=== PATIENT | male | born 1935 | race Caucasian/White ===

== ENCOUNTER 2017-04-17 15:31 | Inpatient (IN) ==
--- NOTE | 2017-04-17 16:19 | Emergency Department Note ---
Disposition Clinical Impression: Shortness of breath, Elevated troponin I level, Hyperkalemia, Hyponatremia CHF (congestive heart failure) Qualifiers: Congestive heart failure type: unspecified congestive heart failure type Congestive heart failure chronicity: acute Qualified Code(s): I50.9 - Heart failure, unspecified [id number] kidney injury Qualifiers: Acute renal failure type: unspecified Chronic kidney disease stage: unspecified stage Qualified Code(s): N17.9 - Acute kidney failure, unspecified; N18.9 - Chronic kidney disease, unspecified; N18.9 - Chronic kidney disease, unspecified Disposition: Admitted As Inpatient Condition: Fair Referrals: Shefali Orellana CNP [Primary Care Provider] - Forms: ED Satisfaction Letter SOB HPI - General Chief Complaint: ED Shortness of Breath/Dyspnea Stated Complaint: Shortness of breath Time Seen by Provider: 04/17/17 15:46 Source: patient, EMS Limitations: no limitations Nursing Notes Reviewed: Yes Vital Signs Reviewed: Yes - History of Present Illness 81-year-old male who complains of dyspnea on exertion that has worsened gradually over the past month but had a stepwise reduction in ability to ambulate without shortness of breath over the past 6 days. Patient states he had no restriction how far he is able to walk up until 6 days ago current only go in 8015 feet without having severe shortness of breath. Patient has a history of arrhythmias of SVT and A. fib. Patient is status post ablation. Patient has seen Dr. Chu in the past. The rest of his procedures and evaluation has been up at [facility]. Patient states he has noticed a 30 pound increase in body weight. His home health care has confirmed this. Patient was seen 2 days ago for bronchitis and was placed on Keflex and Mucinex for symptoms of cough and congestion. - Related Data Home Medications Medication Instructions Recorded Confirmed Amiodarone [Cordarone] 200 mg PO QAM 01/06/15 04/17/17 Metoprolol XL (24 HR) Succ [Toprol 50 mg PO QAM 01/06/15 04/17/17 Xl] Mexiletine [Mexitil] 200 mg PO Q8H 01/06/15 04/17/17 Pravastatin Sodium 10 mg PO QPM 01/06/15 04/17/17 Cholecalciferol (D-3) [Vitamin D] 2,000 unit PO DAILY 06/04/16 04/17/17 Besifloxacin HCl [Besivance] 1 drop OP TID 04/17/17 Denosumab [Prolia (For Outpatient 60 mg SQ [id number] 04/17/17 04/17/17 Infusion)] Testosterone [Androgel] 2 appl TD DAILY 04/17/17 04/17/17 Warfarin [Coumadin] 3 mg PO SUTUTHSA 04/17/17 04/17/17 Warfarin [Coumadin] 4.5 mg PO MOWEFR 04/17/17 04/17/17 Previous Rx's Medication Instructions Recorded Folic Acid 1 mg PO DAILY #30 tablet 09/10/16 Benzonatate [Tessalon] 200 mg PO TID PRN #30 capsule 04/14/17 Guaifenesin [Mucinex] 600 mg PO BID #20 tab.er.12h 04/14/17 cephALEXin [Keflex] 500 mg PO QID #40 capsule 04/14/17 Allergies Allergy/AdvReac Type Severity Reaction Status Date / Time No Known Allergies Allergy Verified 06/04/16 11:53 All systems ED: reviewed and negative except as stated. Review of Systems: As Per HPI Constitutional: Denies: fever Eyes: Denies: vision change ENT ED: Reports: congestion Cardiovascular: Denies: chest pain, palpitations Respiratory: Reports: cough, dyspnea. Denies: wheezes Gastrointestinal: Denies: abdominal pain, nausea, vomiting, diarrhea Genitourinary: Denies: urgency, dysuria, frequency, hematuria Musculoskeletal: Denies: back pain, neck pain Integumentary: Denies: rash Neurological: Denies: headache Endocrine: Reports: fatigue Past Medical History - Past Medical History Attestation: Yes The following information was validated with the patient. Source: patient, nursing notes reviewed Medical history: Reports: atrial fibrillation, cancer, CHF, coronary artery disease, hypertension, other Surgical history: Reports: appendectomy, cataract, colectomy, pacemaker/AICD, prostatectomy, other Psychiatric history: Reports: no psych history - Social History Smoking Status: Never smoker Smokeless Tobacco Status: No Alcohol use: Reports: occasionally Drug use: Reports: none Physical Exam Vital Signs Temperature 96.5 F L 04/17/17 15:33 Pulse Rate 63 04/17/17 15:33 Respiratory Rate 20 04/17/17 15:33 Blood Pressure 131/70 12/20/17 15:33 O2 Sat by Pulse Oximetry 97 04/17/17 15:33 Temperature 96.5 F L 04/17/17 15:33 Pulse Rate 61 04/17/17 17:52 Respiratory Rate 24 04/17/17 17:52 Blood Pressure 137/74 04/17/17 17:52 O2 Sat by Pulse Oximetry 96 04/17/17 17:52 Oxygen Delivery Oxygen Delivery Room Air 81-year-old male who is alert and oriented 3 and does not appear to be in any acute distress and patient is nontoxic appearing - General Limitations: no limitations General appearance: alert - Head Head exam: atraumatic, normocephalic, normal inspection - Eye Eye exam: Present: normal appearance, PERRL, EOMI - ENT ENT exam: normal exam, normal oropharynx, mucous membranes moist - Neck Neck exam: Present: normal inspection, full ROM, trachea midline - Chest Chest inspection: Present: normal inspection, symmetric chest wall rise Course - Consultations Consultation #1: Critical Christina PT/INR with a PT of 206 and an INR of 29.6. Lab redrawn Time: 18:02 Vital Signs Temperature 96.5 F L 04/17/17 15:33 Pulse Rate 63 04/17/17 15:33 Respiratory Rate 20 04/17/17 15:33 Blood Pressure 131/70 04/17/17 15:33 O2 Sat by Pulse Oximetry 97 04/17/17 15:33 Temperature 96.5 F L 04/17/17 15:33 Pulse Rate 61 04/17/17 17:52 Respiratory Rate 24 04/17/17 17:52 Blood Pressure 137/74 04/17/17 17:52 O2 Sat by Pulse Oximetry 96 04/17/17 17:52 Oxygen Delivery Oxygen Delivery Room Air Shortness of Breath/Dyspnea - MDM Narrative Medical decision making narrative: Patient presents with clinical symptoms of CHF. Patient's chest pain free and has crackles at bases lung zayas bilaterally and bilateral lower extremity edema is 2+ pitting. No leg pain or signs of inflammation lower extremities. Laboratories show a elevation of troponin 0.06, patient's BNP is 2048 which is greatly elevated from prior check. Patient has a worsening of BUN and creatinine today 51/2.73 respectively. Previously 34/2.03. Patient's currently CHF exacerbation. Patient given 40 mg Lasix. He produced 180 mL of urine and an half hour. He has been given 0.4 mg of sudden lingual nitroglycerin to help take pressure off his heart and hopefully reperfuse the kidneys. Patient being cold C monitored. Patient still has no chest pain. Pt/ INR 190/19 on recheck. Vital signs are stable. Chest x-ray shows congestive heart failure signs, patient's hyperkalemia, hyponatremia, elevated troponin most likely secondary to demand ischemia without any chest pain or ischemic signs on EKG. Patient also has acute on chronic kidney injury. Current plan is for admission and patient and family understands and accepts this is for admission. Pt was accepted for admission by Dr. Pastor the hospitalist. - Lab Data Lab results reviewed: Yes I reviewed the patient's lab results. Lab results narrative: Short CBC 04/17/17 Range/Units 16:36 WBC 7.6 (4.3-11.1) K/mcL Hgb 13.6 (12.9-16.9) g/dL Hct 43.3 (37.5-50.1) % Plt Count 178 (140-400) K/mcL Neutrophils # 6.0 (1.6-8.9) K/mcL BMP 04/17/17 Range/Units 16:36 Sodium 130 L (136-145) mEq/L Potassium 5.2 H (3.5-5.1) mEq/L Chloride 104 (98-107) mEq/L Carbon Dioxide 18 L (23-29) mEq/L BUN 51 H (8-23) mg/dL Creatinine 2.73 H (0.70-1.30) mg/dL Glucose 87 (70-105) mg/dL Calcium 8.4 L (8.6-10.3) mg/dL Cardiac Enzymes 04/17/17 Range/Units 16:36 Troponin I 0.06 H* (< 0.04) ng/mL Result diagrams: 04/17/17 16:36 04/17/17 16:36 Lab Results 04/17/17 04/17/17 04/17/17 Range/Units 16:36 16:36 16:36 WBC 7.6 (4.3-11.1) K/mcL RBC 4.46 (4.19-5.50) M/mcL Hgb 13.6 (12.9-16.9) g/dL Hct 43.3 (37.5-50.1) % MCV 97.1 (83.0-100.0) fL MCH 30.5 (28.0-33.3) pg MCHC 31.4 L (31.6-35.5) g/dL RDW 15.5 H (11.5-14.5) % Plt Count 178 (140-400) K/mcL MPV 10.8 (9.4-12.4) fL Immature Gran % 0.4 (0-4) % Seg Neutrophils % 79.3 % Lymphocytes % 7.0 % Monocytes % 12.5 % Eosinophils % 0.5 % Basophils % 0.3 % Neutrophils # 6.0 (1.6-8.9) K/mcL Lymphocytes # 0.5 L (0.6-4.6) K/mcL Monocytes # 1.0 (0.0-1.3) K/mcL Eosinophils # 0.0 (0.0-0.6) K/mcL Basophils # 0.0 (0.0-0.2) K/mcL Nucleated RBCs/100 WBC 0.4 H (0) /100 WBC PT 206.0 H* (9.4-12.1) Seconds INR > 29.6 H* Sodium 130 L (136-145) mEq/L Potassium 5.2 H (3.5-5.1) mEq/L Chloride 104 (98-107) mEq/L Carbon Dioxide 18 L (23-29) mEq/L BUN 51 H (8-23) mg/dL Creatinine 2.73 H (0.70-1.30) mg/dL Est GFR ( Amer) 27 L (> 60) Est GFR (Non-Af Amer) 23 L (> 60) BUN/Creatinine Ratio 19 (6-26) Glucose 87 (70-105) mg/dL Calculated Osmolality 283 (280-300) Lactic Acid (0.5-2.2) mmol/L Calcium 8.4 L (8.6-10.3) mg/dL Troponin I (< 0.04) ng/mL B-Natriuretic Peptide (Less than 100) pg/mL 04/17/17 04/17/17 04/17/17 Range/Units 16:36 16:36 16:36 WBC (4.3-11.1) K/mcL RBC (4.19-5.50) M/mcL Hgb (12.9-16.9) g/dL Hct (37.5-50.1) % MCV (83.0-100.0) fL MCH (28.0-33.3) pg MCHC (31.6-35.5) g/dL RDW (11.5-14.5) % Plt Count (140-400) K/mcL MPV (9.4-12.4) fL Immature Gran % (0-4) % Seg Neutrophils % % Lymphocytes % % Monocytes % % Eosinophils % % Basophils % % Neutrophils # (1.6-8.9) K/mcL Lymphocytes # (0.6-4.6) K/mcL Monocytes # (0.0-1.3) K/mcL Eosinophils # (0.0-0.6) K/mcL Basophils # (0.0-0.2) K/mcL Nucleated RBCs/100 WBC (0) /100 WBC PT (9.4-12.1) Seconds INR Sodium (136-145) mEq/L Potassium (3.5-5.1) mEq/L Chloride (98-107) mEq/L Carbon Dioxide (23-29) mEq/L BUN (8-23) mg/dL Creatinine (0.70-1.30) mg/dL Est GFR ( Amer) (> 60) Est GFR (Non-Af Amer) (> 60) BUN/Creatinine Ratio (6-26) Glucose (70-105) mg/dL Calculated Osmolality (280-300) Lactic Acid 1.5 (0.5-2.2) mmol/L Calcium (8.6-10.3) mg/dL Troponin I 0.06 H* (< 0.04) ng/mL B-Natriuretic Peptide 2048 H (Less than 100) pg/mL - Radiology Data Radiology results reviewed: Yes I reviewed the patient's radiology results. Chest X-Ray 04/17/17 16:17 IMPRESSION: Findings suggest congestive heart failure D/ / Albino Andrade MD / Albino Andrade MD Interpreting Provider: Albino Andrade MD - EKG Data EKG attestation: Yes I reviewed and interpreted this EKG. EKG results narrative: EKG taken 2016 at 1537 hrs. shows sinus rhythm at a rate of 62 beats minute. Patient has a pacer and a CD place. he has elevations or depressions in any leads, some widening of the QRS at QT/QTc of 477 and 42 ms. EMS relayed shows sinus bradycardia at 59 beats minute. Taken at 1035 hrs.
[2017-04-17] MEDS: Furosemide 40 MG/4 ML VIAL IVP ONE (16:40)
[2017-04-17 16:51] LABS: Basophils % 0.3 %; Eosinophils % 0.5 %; Hematocrit 43.3 % (37.5-50.1); Hemoglobin 13.6 g/dL (12.9-16.9); Immature Granulocytes % 0.4 % (0-4); Lymphocytes # 0.5 K/mcL (0.6-4.6); Mean Corpuscular HGB Conc 31.4 g/dL (31.6-35.5); Mean Corpuscular Hemoglobin 30.5 pg (28.0-33.3); Mean Corpuscular Volume 97.1 fL (83.0-100.0); Mean Platelet Volume 10.8 fL (9.4-12.4); Monocytes % 12.5 %; Nucleated Red Blood Cells 0.4 /100 WBC (0); Platelet Count 178 K/mcL (140-400); Red Blood Count 4.46 M/mcL (4.19-5.50); Red Cell Distribution Width 15.5 % (11.5-14.5); Segmented Neutrophils % 79.3 %
[2017-04-17 17:01] LABS: Calcium 8.4 mg/dL (8.6-10.3); Potassium 5.2 mEq/L (3.5-5.1)
[2017-04-17 17:48] LABS: INR > 29.6
[2017-04-17] MEDS ORDERED: Nitroglycerin 0.4 MG TAB.SUBL SL PRN (17:56)
[2017-04-17 18:24] LABS: Activated Partial Thrombo Time 60.9 Seconds (26.0-36.0)
[2017-04-17 18:48] LABS: INR 17.1; Prothrombin Time 195.5 Seconds (9.4-12.1)
--- NOTE | 2017-04-17 19:46 | Emergency Department Note ---
START Narrative - START START: I examined this patient and my medical decision-making was reviewed with the Resident Physician. I agree with the documented findings, disposition and treatment plan as described except to the extent set forth below. Exam (Peripheral edema, JVD, HJR), BNP and CXR c/w HF. Agree with management and disposition. INR elevated, pt w/o sx of bleeding.
[2017-04-17] MEDS ORDERED: Ondansetron ODT 4 MG TAB.RAPDIS SL PRN (21:30)
[2017-04-17] MEDS ORDERED: Naloxone 0.4 MG/ML INJ IVP PRN (21:30)
[2017-04-17] MEDS ORDERED: Acetaminophen 325 MG TABLET PO PRN (21:30)
[2017-04-17] MEDS ORDERED: *HR* Phytonadione 5 MG TABLET PO ONE (22:30)
[2017-04-18 03:40] LABS: Basophils % 0.3 %; Eosinophils # 0.1 K/mcL (0.0-0.6); Hematocrit 38.1 % (37.5-50.1); Immature Granulocytes % 0.7 % (0-4); Lymphocytes # 0.6 K/mcL (0.6-4.6); Lymphocytes % 10.7 %; Mean Corpuscular HGB Conc 31.5 g/dL (31.6-35.5); Mean Corpuscular Hemoglobin 30.1 pg (28.0-33.3); Mean Corpuscular Volume 95.5 fL (83.0-100.0); Mean Platelet Volume 10.9 fL (9.4-12.4); Monocytes # 0.9 K/mcL (0.0-1.3); Monocytes % 15.2 %; Neutrophils # 4.3 K/mcL (1.6-8.9); Nucleated Red Blood Cells 0.5 /100 WBC (0); Platelet Count 175 K/mcL (140-400); Red Blood Count 3.99 M/mcL (4.19-5.50); Segmented Neutrophils % 72.1 %
[2017-04-18 04:08] LABS: Calcium 8.1 mg/dL (8.6-10.3); Magnesium 1.9 mg/dL (1.6-2.6); Potassium 4.7 mEq/L (3.5-5.1)
--- NOTE | 2017-04-18 04:17 | Event Note ---
Date of Encounter: 04/18/17 Time of Encounter: 04:15 I examined this patient and my medical decision-making was reviewed with the Resident Physician. I agree with the documented findings, disposition and treatment plan as described except to the extent set forth below. Exam showed 1-2+ bipedal pitting edema. CXR showed Pulmonary vascular congestion. Mild interstitial edema and BNP elevated. Patient has elevated creatinine at 2.7 but near baseline (2.0-2.4). He received one dose of Lasix 40 mg IV at 16:00 in ED yesterday. - Given his renal function, will hold from giving another dose of Lasix as of this moment and should be re-evaluated. May need another dose later today, repeat BMP is pending. Follow-up echocardiogram, strict I/O, daily weights, fluid restrict. - INR dropped quickly from >26 to 17. No signs of active bleed, given 5 mg Vitamin K at 2200. Recheck INR now, continue to hold coumadin. - Sodium low at 130, will need to monitor closely as patient already volume overloaded with kidney injury.
[2017-04-18 04:18] LABS: INR 16.3; Prothrombin Time 186.8 Seconds (9.4-12.1)
--- NOTE | 2017-04-18 04:49 | Internal Med History&Physical ---
Date of Encounter: 04/18/17 Time of Encounter: 09:00 Assessment and Plan (1) Acute exacerbation of CHF (congestive heart failure) Current visit: Yes Status: Acute Hx CHF, s/p AICD insertion 2012 after cardiac arrest. 1-2+ pitting edema, no JVD, saturating well on 2L NC. In setting of CKD (2.73 creat) will not use lasix at this time. Strict I's/O's, cardiac diet, <1500mg salt restriction. Patient has modest urinary output. Echocardiogram ordered. Qualifiers: Congestive heart failure type: unspecified congestive heart failure type Qualified Code(s): I50.9 - Heart failure, unspecified (2) Supratherapeutic INR Current visit: Yes Status: Acute PT 195.5 1800; INR 17.1 Holding coumadin (pt states he takes 3.0, 4.5 alternating, compliant, last coumadin clinic 9 days ago) Giving 5mg VitK. AM INR. Fall/bleed precautions. Currently no evidence of bleed, will not give FFP at this time. Continue trending PT/INR. (3) Chronic kidney disease Current visit: No Status: Acute Baseline 1.8-2.0; currently 2.73 creatinine. Is currently on strict diet/fluids due to CHF exacerbation, will monitor labs/ urine output. Qualifiers: Chronic kidney disease stage: unspecified stage Qualified Code(s): N18.9 - Chronic kidney disease, unspecified (4) Chronic a-fib Current visit: No Status: Chronic Currently rate+rhythm controlled on Amiodarone, Mexitil, Toprol. Has been on Amio for over 2 years. Follows physician's aide [id number] at [facility]. (5) Elevated troponin I level Current visit: Yes Status: Acute Relatively a-dynamic troponin .06 to .08 without chest discomfort, no ischemic changes on ECG, and in setting of CKD. Echocardiogram pending as per CHF exacerbation workup. Internal Medicine - H&P: HPI Admitted From: Emergency Dept Plans for Post Hospital Care: Home History of present illness: Esau Auguste, 81M, PMH CHF, cardiac arrest with AICD since 2012, afib on amiodarone, HTN, presents to ED for SOB x6d, worsened by exertion/walking short distances. ED CXR shows evidence of pulmonary vascular congestion. No ischemic changes on ECG. Troponin was elevated at .06. Pt reports increased weight gain in past few weeks. Denies fever, n/v, diarrhea , chest discomfort at rest or with exertion. States he has been taking his medications. He reports aside from the SOB while walking he had a recent fall this Saturday from crouching position while in the front yard taking out garbage. He denies contusions or loss of consciousness. EMS was called by patient because he could not get up independently. He was not taken to the emergency room at the time. Pt currently takes Coumadin initiated 8 weeks ago. Denies bruising/bleeding (stool, gums, bruising). Past Med Surg Social Fam HX - Past Medical History Medical history: atrial fibrillation, cancer, CHF, coronary artery disease, hyperlipidemia, hypertension, other Psychiatric history: no psych history - Past Surgical History Surgical History: appendectomy, cataract, colectomy, pacemaker/AICD, prostatectomy, other - Social History Smoking Status: Former smoker Smokeless Tobacco Status: No Alcohol use: occasionally Drug use: none - Family History Mother Adopted: No Family Member Ethnicity: Non- Living Status: Hx Family Cardiac Disorders: Yes Hx Family GI Disorders: Yes (CRC resectable) Brother Hx Family Cancer: Yes (esophageal cancer, other brother had liver cancer) Father Adopted: [place]: [email or web address] Family Member Ethnicity: Non- Living Status: Age at : 80 Cause of : heart attack Hx Family Cardiac Disorders: Yes Internal Medicine - H&P: Meds Amiodarone [Cordarone] 200 mg PO QAM 01/06/15 [History] Metoprolol XL (24 HR) Succ [Toprol Xl] 50 mg PO QAM 01/06/15 [History] Mexiletine [Mexitil] 200 mg PO Q8H 01/06/15 [History] Pravastatin Sodium 10 mg PO QPM 01/06/15 [History] Cholecalciferol (D-3) [Vitamin D] 2,000 unit PO DAILY 06/04/16 [History] Folic Acid 1 mg PO DAILY #30 tablet 09/10/16 [Rx] Benzonatate [Tessalon] 200 mg PO TID PRN #30 capsule 04/14/17 [Rx] Guaifenesin [Mucinex] 600 mg PO BID #20 tab.er.12h 04/14/17 [Rx] cephALEXin [Keflex] 500 mg PO QID #40 capsule 04/14/17 [Rx] Besifloxacin HCl [Besivance] 1 drop OP TID 04/17/17 [History] Denosumab [Prolia (For Outpatient Infusion)] 60 mg SQ [id number] 04/17/17 [History ] Testosterone [Androgel] 2 appl TD DAILY 04/17/17 [History] Warfarin [Coumadin] 3 mg PO SUTUTHSA 04/17/17 [History] Warfarin [Coumadin] 4.5 mg PO MOWEFR 04/17/17 [History] 3 Allergy/AdvReac Type Severity Reaction Status Date / Time No Known Allergies Allergy Verified 06/04/16 11:53 All Systems PM: A 10-system review of systems was performed and is negative for pertinent findings except as documented above in the HPI. - Constitutional Vitals: Temp Pulse Resp BP Pulse Ox 98.2 F 63 22 124/67 97 04/18/17 04:10 04/18/17 04:10 04/18/17 04:10 04/18/17 04:10 04/18/17 04:10 General appearance: Present: A&O X 3, no acute distress - Head Head exam: Present: atraumatic - Respiratory Respiratory exam: Present: CTAB. Absent: accessory muscle use, chest wall tenderness, tachypnea - Cardiovascular Cardiovascular exam: Present: +S1, +S2. Absent: irregular rhythm, JVD Additional comments: mid 60s pulse, regular - GI/Abdominal GI/Abdominal exam: Present: no peritoneal signs - Extremities Exam Additional comments: 1-2+ pitting edema - Skin Skin exam: Absent: excoriation, petechiae Additional comments: no evidence of bleed Internal Med - H&P Results - Labs CBC & Chem 7: 04/18/17 03:02 04/18/17 03:02 Labs: Short CBC 04/18/17 Range/Units 03:02 WBC 6.0 (4.3-11.1) K/mcL Hgb 12.0 L D (12.9-16.9) g/dL Hct 38.1 (37.5-50.1) % Plt Count 175 (140-400) K/mcL Neutrophils # 4.3 (1.6-8.9) K/mcL BMP 04/18/17 03:02 Sodium 138 Potassium 4.7 Chloride 108 H Carbon Dioxide 19 L BUN 49 H Creatinine 2.69 H Glucose 85 Calcium 8.1 L Cardiac Enzymes 04/17/17 Range/Units 21:57 Troponin I 0.08 H* (< 0.04) ng/mL
[2017-04-18 05:18] LABS: Prothrombin Time 180.8 Seconds (9.4-12.1)
[2017-04-18 05:19] LABS: INR 15.8
[2017-04-18] MEDS: Folic Acid 1 MG TABLET PO SCH (09:02)
[2017-04-18] MEDS: *HR* Amiodarone 200 MG TABLET PO SCH (09:02)
[2017-04-18] MEDS: Cholecalciferol (D-3) 1,000 UNIT TABLET PO SCH (09:02)
[2017-04-18] MEDS: Metoprolol XL (24 HR) Succ 50 MG TAB.ER.24H PO SCH (09:02)
[2017-04-18] MEDS ORDERED: *HR* Phytonadione 5 MG TABLET PO ONE (14:13)
[2017-04-18] MEDS: Loratadine 10 MG TABLET PO SCH (16:05)
[2017-04-18] MEDS: Furosemide 40 MG/4 ML VIAL IVP SCH (16:05)
[2017-04-18] MEDS: Furosemide 40 MG/4 ML VIAL IVP ONE (16:05)
--- NOTE | 2017-04-18 16:37 | Electrocardiograph Report ---
[place] [id number] Test Date: 2017-04-17 Pat Name: Esau Auguste Department: 104 Room: [id number] Gender: M Feather [employer]her: : 1935 Requested By: Oc Zaragoza Order Number: [id number] Reading MD: Denton Menendez MD Measurements Intervals [place] Rate: 62 P: 17 AK: 172 QRS: -30 QRSD: 157 T: 0 QT: 477 QTc: 482 Interpretive Statements SINUS RHYTHM INTRAVENTRICULAR CONDUCTION DELAY Poor R wave progression Electronically Signed On 04-18-2017 16:35:53 EST by Denton Menendez MD
--- NOTE | 2017-04-18 17:41 | Event Note ---
Date of Encounter: 04/18/17 Time of Encounter: 11:00 -Patient will history of ischemic cardiomyopathy with recent dyspnea on exertion and weight gain for the past 2 months. -Will continue IV diuresis for acute on chronic heart failure. -Cardiology consulted and appreciate recommendations
[2017-04-19 04:13] LABS: INR 4.1
[2017-04-19 04:15] LABS: Prothrombin Time 45.7 Seconds (9.4-12.1)
[2017-04-19] MEDS: Folic Acid 1 MG TABLET PO SCH (08:21)
[2017-04-19] MEDS: Loratadine 10 MG TABLET PO SCH (08:21)
[2017-04-19] MEDS: Furosemide 40 MG/4 ML VIAL IVP SCH (08:21)
[2017-04-19] MEDS: Metoprolol XL (24 HR) Succ 50 MG TAB.ER.24H PO SCH (08:21)
[2017-04-19] MEDS: *HR* Amiodarone 200 MG TABLET PO SCH (08:21)
[2017-04-19] MEDS: Cholecalciferol (D-3) 1,000 UNIT TABLET PO SCH (08:21)
[2017-04-19 08:58] LABS: Basophils % 0.3 %; Eosinophils # 0.1 K/mcL (0.0-0.6); Eosinophils % 1.1 %; Hematocrit 38.3 % (37.5-50.1); Immature Granulocytes % 1.2 % (0-4); Immature Platelets 3.7 % (1.1-6.1); Lymphocytes # 0.7 K/mcL (0.6-4.6); Lymphocytes % 9.9 %; Mean Corpuscular HGB Conc 31.3 g/dL (31.6-35.5); Mean Corpuscular Volume 95.8 fL (83.0-100.0); Mean Platelet Volume 10.5 fL (9.4-12.4); Monocytes # 1.1 K/mcL (0.0-1.3); Monocytes % 14.3 %; Neutrophils # 5.4 K/mcL (1.6-8.9); Nucleated Red Blood Cells 0.4 /100 WBC (0); Platelet Count 170 K/mcL (140-400); Red Cell Distribution Width 15.2 % (11.5-14.5); Segmented Neutrophils % 73.2 %
[2017-04-19 09:14] LABS: Calcium 8.2 mg/dL (8.6-10.3); Potassium 4.5 mEq/L (3.5-5.1)
--- NOTE | 2017-04-19 10:01 | Cardiology Consult Note ---
<Kamryn Adamson - Last Filed: 04/19/17 10:05> Date of Encounter: 04/19/17 Time of Encounter: 09:00 Assessment and Plan (1) Non-ischemic cardiomyopathy Current Visit: Yes Status: Acute Suspect acute on chronic CHF exacerbation. BNP 2048 upon admission, now 2673. Prior BNP 350. CXR shows pulmonary vascular congestion, mild interstitial edema. Patient reports 25 lb weight gain and worsening shortness of breath over the past 2 months. Most recent TTE February 2015 demonstrated EF 45-50% with mild LVDD. EF previously 35% January 2013. Echo ordered and pending. Continue diuresis--appreciate Nephrology recommendations. Continue Toprol XL. No ACEi/ARB due to CKD. Strict I&O's, daily weights, and Na/fluid restriction diet. (2) PAF (paroxysmal atrial fibrillation) Current Visit: Yes Status: Acute Hx of PAF on Coumadin. Had been on Xarelto in the past, transition to Coumadin this past summer due to worsening CKD. SR upon exam. Avg HR=61 SR, paced at times. Follows with [facility]. Patient reports compliance with medications and diet. INR supratherpeutic upon admission, >29.6. Now 4.1. Goal 2-3. (3) Elevated troponin I level Current Visit: Yes Status: Acute Mild, adynamic troponin elevation in the setting of CKD and acute on chronic CHF. This likely is secondary to demand ischemia. Patient denies chest pain, no acute ischemic ECG changes noted. 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 Continue current CV medications. (4) Renal insufficiency Current Visit: Yes Status: Acute Follows with Dr. Appiah in the outpatient setting. Baseline SCr 1.8-2.4; mild increase from baseline upon presentation. Consulted [facility] for diuresis recommendations. (5) AICD (automatic cardioverter/defibrillator) present Current Visit: Yes Status: Chronic AICD implant in 2012 for secondary prevention due to VT. Hx of VT ablation at [facility], follows with ESTEBAN Suggs at [facility]. Continue amiodarone and mexiletine. Discussion w patient/family: The assessment and plan as outlined above was discussed with the patient and/or family members who expressed understanding and agreement. All questions were answered. Thank you for involving us in the care of your patient. Please call with any questions. The patient will be discussed and reviewed with Dr. Dumont; changes to be made accordingly. History of Present Illness Consult date: 04/19/17 Requesting physician: Madhu Dickens Consult reason: Elevated troponin, CHF Chief complaint: Shortness of breath, weight gain History of present illness: Mr. Auguste is a 81 year old male with PMHx significant for nonischemic cardiomyopathy, VT s/p ICD and ablation ([facility]), CKD, and PAF (coumadin) who presented to the ED with 1 week history of worsening weakness, fatigue, and shortness of breath. He also reports 25 lb weight gain over the past 2 months. Associated symptoms include cough, subjective fevers, and chills. INR was supratherapeutic upon admission, INR >29.6, now stable. Cardiology consulted for mild troponin elevation and hx of CHF. Patient also follows with [facility] EP, Dr. De La Cruz. Prior CV testing ([facility]): TTE 03/25/15: EF 45-50%, mild LVDD TTE 09/22/13: EF 55-60% 12/09/12: ICD implant for secondary prevention LHC 12/07/12: mild-moderate non-obstructive CAD, EF 35% Past Med Surg Social Fam HX - Past Medical History Attestation: Yes The following information was validated with the patient. Source: patient Medical history: atrial fibrillation, cancer, CHF, coronary artery disease, hyperlipidemia, hypertension, renal disease, other (VT) Psychiatric history: no psych history - Past Surgical History Surgical History: appendectomy, cataract, colectomy, prostatectomy, other (VT ablation ([facility])), AICD - Social History Smoking Status: Former smoker Smokeless Tobacco Status: No Alcohol use: occasionally Drug use: none - Family History Mother Adopted: No Family Member Ethnicity: Non- Living Status: Hx Family Cardiac Disorders: Yes Hx Family GI Disorders: Yes (CRC resectable) Brother Hx Family Cancer: Yes (esophageal cancer, other brother had liver cancer) Father Adopted: [place]: mike Family Member Ethnicity: Non- Living Status: Age at : 80 Cause of : heart attack Hx Family Cardiac Disorders: Yes Medications and Allergies Amiodarone [Cordarone] 200 mg PO QAM 01/06/15 [History] Metoprolol XL (24 HR) Succ [Toprol Xl] 50 mg PO QAM 01/06/15 [History] Mexiletine [Mexitil] 200 mg PO Q8H 01/06/15 [History] Pravastatin Sodium 10 mg PO QPM 01/06/15 [History] Cholecalciferol (D-3) [Vitamin D] 2,000 unit PO DAILY 06/04/16 [History] Folic Acid 1 mg PO DAILY #30 tablet 09/10/16 [Rx] Benzonatate [Tessalon] 200 mg PO TID PRN #30 capsule 04/14/17 [Rx] Guaifenesin [Mucinex] 600 mg PO BID #20 tab.er.12h 04/14/17 [Rx] cephALEXin [Keflex] 500 mg PO QID #40 capsule 04/14/17 [Rx] Besifloxacin HCl [Besivance] 1 drop OP TID 04/17/17 [History] Denosumab [Prolia (For Outpatient Infusion)] 60 mg SQ [id number] 04/17/17 [History ] Testosterone [Androgel] 2 appl TD DAILY 04/17/17 [History] Warfarin [Coumadin] 3 mg PO SUTUTHSA 04/17/17 [History] Warfarin [Coumadin] 4.5 mg PO MOWEFR 04/17/17 [History] 3 Allergy/AdvReac Type Severity Reaction Status Date / Time No Known Allergies Allergy Verified 06/04/16 11:53 All Systems Review: A 10-system review of systems was performed and is negative for pertinent findings except as documented above in the HPI. - Cardiovascular Cardiovascular: as per HPI Physical Examination General: Conversant, No Apparent Distress HEENT: Atraumatic, Normocephaly Cardiac: Reg Rate and Rhythm, Normal S1 and S2 Lungs: Other (Crackles throughout) Neuro: Alert and responsive Abdomen: Soft, Non-Tender Skin: No rashes noted on visualized skin Musculoskeletal: No Chest Wall Tenderness Extremities: Normal Pulses, Other (+2 BLE to knees) Results 04/19/17 08:36 04/19/17 08:36 Lab Results 04/19/17 04/19/17 08:36 08:36 WBC 7.4 Hgb 12.0 L Hct 38.3 Plt Count 170 Sodium 137 Potassium 4.5 Chloride 107 Carbon Dioxide 24 BUN 44 H Creatinine 2.32 H Glucose 96 Calcium 8.2 L Active Medications Acetaminophen (Tylenol) 650 mg PO Q6HR PRN PRN Reason: Mild Pain (1-3) Stop: 10/17/17 21:31 Amiodarone HCl (Cordarone) 200 mg PO QAM [facility] Stop: 10/18/17 09:01 Last Admin: 04/19/17 08:21 Dose: 200 mg Folic Acid (Folic Acid) 1 mg PO DAILY [facility] Stop: 10/18/17 09:01 Last Admin: 04/19/17 08:21 Dose: 1 mg Furosemide (Lasix) 40 mg IVP DAILY [facility] Stop: 10/18/17 14:16 Last Admin: 04/19/17 08:21 Dose: 40 mg Guaifenesin (Mucinex) 600 mg PO BID [facility] Stop: 10/18/17 09:01 Last Admin: 04/19/17 08:21 Dose: 600 mg Loratadine (Claritin) 10 mg PO DAILY [facility] PRN Reason: Protocol Stop: 10/18/17 15:01 Last Admin: 04/19/17 08:21 Dose: 10 mg Metoprolol Succinate ([facility]rol Xl) [facility] [place] Stop: 10/18/17 09:01 Last Admin: 04/19/17 08:21 Dose: 50 mg Mexiletine HCl (Mexitil) 200 mg PO Q8H [facility] Stop: 10/17/17 21:46 Last Admin: 04/19/17 05:46 Dose: 200 mg Naloxone HCl (Narcan) 0.4 mg IVP Q2MIN PRN PRN Reason: Opioid Reversal Stop: 10/17/17 21:31 Nitroglycerin (Nitroglycerin) 0.4 mg SL Q5MIN PRN PRN Reason: Chest Pain Stop: 10/17/17 17:57 Last Admin: 04/17/17 18:22 Dose: 0.4 mg Ondansetron HCl (Zofran Odt) 4 mg SL Q8HR PRN PRN Reason: Nausea And Vomiting Stop: 10/17/17 21:31 Simvastatin (Zocor) 10 mg PO QPM [facility] Stop: 10/18/17 18:01 Last Admin: 04/18/17 17:38 Dose: 10 mg Vitamin D (Vitamin D) 1,000 unit PO DAILY [facility] Stop: 10/18/17 09:01 Last Admin: 04/19/17 08:21 Dose: 1,000 unit - Imaging and Cardiology Echo: pending, report reviewed Cardiac cath: report reviewed Other Results: 12 hour tele: avg HR=61 SR, paced at times. - EKG Interpretation EKG results cardiology: personally reviewed Consult Discharge Plan - Plan Referrals: Shefali Orellana CNP [Primary Care Provider] - 04/23/17 1:30 pm <Katina Dumont - Last Filed: 04/19/17 17:07> Date of Encounter: 04/19/17 - Attending Attestation I examined this patient and my medical decision-making was reviewed with the NURSING CARE ATTENDANT. I agree with the documented findings, disposition and treatment plan as described. Mr. Auguste presents with acute systolic heart failure. He has known history of NICM and history of VT s/p ablation at [facility] and ICD placement as well as CKD and PAF on coumadin. Patient follows with Dr. De La Cruz at [facility] and is on mexilitene and amiodarone. Echo performed this hospital stay demonstrates EF 45-50%, improved from January 2013 when it was 35%. Recommend continuing diuresis, strict I/O's, daily weights and NA/fluid restriction. Troponin elevation is mild and adynamic not indicative of ACS. Will defer to primary team for coumadin management of supratherapeutic INR used for AFIB. Patient Hgb is stable and no signs of bleeding. We will sign off. Please call with questions. Recommend outpatient follow up with primary machine setter and repairer. Assessment and Plan Discussion w patient/family: The assessment and plan as outlined above was discussed with the patient and/or family members who expressed understanding and agreement. All questions were answered. Thank you for involving us in the care of your patient. Please call with any questions. History of Present Illness History of present illness: Mr. Auguste is a 81 year old male All Systems Review: A 10-system review of systems was performed and is negative for pertinent findings except as documented above in the HPI. Physical Examination Vital Signs, Last 4 Hours Temp Pulse Resp BP Pulse Ox 04/19/17 15:00 98.5 F 64 17 125/67 97 Results 04/19/17 08:36 04/19/17 08:36 Lab Results 04/19/17 04/19/17 08:36 08:36 WBC 7.4 Hgb 12.0 L Hct 38.3 Plt Count 170 Sodium 137 Potassium 4.5 Chloride 107 Carbon Dioxide 24 BUN 44 H Creatinine 2.32 H Glucose 96 Calcium 8.2 L
--- NOTE | 2017-04-19 14:55 | Nephrology Consult Note ---
Date of Encounter: 04/19/17 Time of Encounter: 15:01 Assessment and Plan (1) Chronic kidney disease Current Visit: No Status: Acute CKD stage IV. patient had slightly worsening of his creatinine on admission, likely related to fluid overload in the setting of acute exacerbation of systolic heart failure.agree with IV diuresis which appears to have improved his renal function. Patient is having good urine output. Patient still has rales on exam with lower extremity edema so would continue IV diuresis for now. Continue to follow nephro protective strategy including avoiding nephrotoxins and dosing medications by GFR. Agree with holding BOB inhibitor and arms due to worsening renal function and hyperkalemia. Patient apparently has not been taking Lasix at home due to concerns about kidney injury. Would recommend patient continue Lasix at home with a dose of 40 mg every other day and a BMP 1 week after discharge. His potassium was 5.2 on presentation and has improved to 4.5. Qualifiers: Chronic kidney disease stage: stage 4 (severe) Qualified Code(s): N18.4 - Chronic kidney disease, stage 4 (severe) (2) Anemia Current Visit: No Status: Chronic Hemoglobin 12, and active goal for anemia of chronic kidney disease. No evidence of active bleeding. Qualifiers: Anemia type: unspecified type Qualified Code(s): D64.9 - Anemia, unspecified (3) Acute exacerbation of CHF (congestive heart failure) Current Visit: Yes Status: Acute Further management per primary/cardio Qualifiers: Congestive heart failure type: unspecified congestive heart failure type Qualified Code(s): I50.9 - Heart failure, unspecified (4) PAF (paroxysmal atrial fibrillation) Current Visit: Yes Status: Acute Further management per primary and cardiology History of Present Illness - Reason for Consult Consult date: 04/19/17 Acute Kidney Injury, Chronic Kidney Disease Requesting physician: Kamryn Adamson - Chief Complaint Shortness of breath - History of Present Illness Patient is an 81-year-old male with history of atrial fibrillation, CKD stage IV who presents with worsening shortness of breath. Patient states that he was having shortness of breath for several days at home with increased lower extremity swelling. He thought that he had a cold so he went to urgent care where they treated him with antibiotics. He states these did not help and he continued to worsen until he saw his PCP who recommended he go to the emergency department for evaluation. At the time I examined the patient states that he feels better. He feels like his breathing is improved. He states he has lower extremity edema but it feels to be about his baseline. He denies decreased appetite, nausea, vomiting, confusion. Past Med Surg Social Fam HX - Past Medical History Medical history: atrial fibrillation, cancer, CHF, coronary artery disease, hyperlipidemia, hypertension, renal disease, other (VT) Psychiatric history: no psych history - Past Surgical History Surgical History: appendectomy, cataract, colectomy, prostatectomy, other (VT ablation ([facility])), AICD - Social History Smoking Status: Former smoker Smokeless Tobacco Status: No Alcohol use: occasionally Drug use: none - Family History Mother Adopted: No Family Member Ethnicity: Non- Living Status: Hx Family Cardiac Disorders: Yes Hx Family GI Disorders: Yes (CRC resectable) Brother Hx Family Cancer: Yes (esophageal cancer, other brother had liver cancer) Father Adopted: [place]: mike Family Member Ethnicity: Non- Living Status: Age at : 80 Cause of : heart attack Hx Family Cardiac Disorders: Yes Medications and Allergies Amiodarone [Cordarone] 200 mg PO QAM 01/06/15 [History] Metoprolol XL (24 HR) Succ [Toprol Xl] 50 mg PO QAM 01/06/15 [History] Mexiletine [Mexitil] 200 mg PO Q8H 01/06/15 [History] Pravastatin Sodium 10 mg PO QPM 01/06/15 [History] Cholecalciferol (D-3) [Vitamin D] 2,000 unit PO DAILY 06/04/16 [History] Folic Acid 1 mg PO DAILY #30 tablet 09/10/16 [Rx] Benzonatate [Tessalon] 200 mg PO TID PRN #30 capsule 04/14/17 [Rx] Guaifenesin [Mucinex] 600 mg PO BID #20 tab.er.12h 04/14/17 [Rx] cephALEXin [Keflex] 500 mg PO QID #40 capsule 04/14/17 [Rx] Besifloxacin HCl [Besivance] 1 drop OP TID 04/17/17 [History] Denosumab [Prolia (For Outpatient Infusion)] 60 mg SQ [id number] 04/17/17 [History ] Testosterone [Androgel] 2 appl TD DAILY 04/17/17 [History] Warfarin [Coumadin] 3 mg PO SUTUTHSA 04/17/17 [History] Warfarin [Coumadin] 4.5 mg PO MOWEFR 04/17/17 [History] 3 Allergy/AdvReac Type Severity Reaction Status Date / Time No Known Allergies Allergy Verified 06/04/16 11:53 Review of Systems All Systems: reviewed and no additional remarkable complaints except as stated Exam - Vital Signs Vital signs: Initial Vital Signs Temp Pulse Resp BP Pulse Ox 96.5 F L 63 20 131/70 97 04/17/17 15:33 04/17/17 15:33 04/17/17 15:33 04/17/17 15:33 04/17/17 15:33 Intake and Output 04/18/17 04/19/17 04/19/17 23:59 07:59 15:59 Intake Total 240 / 240 Output Total 300 / 300 Balance -60 / -60 Intake: Oral 240 / 240 Output: Urine 300 / 300 Other: Meal Breakfast Percent of Meal Consumed 100% - General Appearance General appearance: well-developed, well-nourished, appears started age EENT: ATNC, PERRL, mucous membranes moist Neck: supple Respiratory: rales (Mild, bibasilar) Cardiology: no murmurs, edema (1+ lower extremities bilaterally), regular rate, irregular rhythm Gastrointestinal: normoactive bowel sounds, no tenderness, no guarding Integumentary: no rash, warm and dry Neurologic: no focal deficit, alert and oriented x3 Musculoskeletal: no erythema, no cyanosis Results - Lab Results 04/19/17 08:36 04/19/17 08:36 Most recent lab results Calcium 8.2 mg/dL (8.6-10.3) L 04/19/17 08:36 Phosphorus 3.0 mg/dL (2.7-4.5) 04/18/17 03:02 Magnesium 1.9 mg/dL (1.6-2.6) 04/18/17 03:02 Consult Discharge Plan - Plan Referrals: Shefali Orellana CNP [Primary Care Provider] - 04/23/17 1:30 pm
--- NOTE | 2017-04-19 17:33 | Internal Med Progress Note ---
Date of Encounter: 04/19/17 Time of Encounter: 11:00 - Assessment and plan (1) Acute exacerbation of CHF (congestive heart failure) Current Visit: Yes Status: Acute Assessment and plan: -Patient with acute on chronic diastolic heart failure. -Continue IV diuresis -Cardiology following and appreciate recommendations Qualifiers: Congestive heart failure type: unspecified congestive heart failure type Qualified Code(s): I50.9 - Heart failure, unspecified (2) Supratherapeutic INR Current Visit: Yes Status: Acute Assessment and plan: -INR now 4.1 from 17.1 after 10 mg of vitamin K given -Continue to monitor; pharmacy to does (3) Hsydw-mf-[id number] kidney injury Current Visit: Yes Status: Acute Assessment and plan: -Patient with acute on chronic kidney disease stage IV -Nephrology consulted and appreciate recommendations Qualifiers: Acute renal failure type: unspecified Chronic kidney disease stage: unspecified stage Qualified Code(s): N17.9 - Acute kidney failure, unspecified ; N18.9 - Chronic kidney disease, unspecified; N18.9 - Chronic kidney disease, unspecified (4) PAF (paroxysmal atrial fibrillation) Current Visit: Yes Status: Acute Assessment and plan: -Rate controlled but currently supratherapeutic; management as above (5) HLD (hyperlipidemia) Current Visit: No Status: Acute Assessment and plan: -Continue statin Qualifiers: Hyperlipidemia type: unspecified Qualified Code(s): E78.5 - Hyperlipidemia , unspecified (6) DVT prophylaxis Current Visit: No Status: Acute Assessment and plan: -Supratherapeutic as above - Subjective Interval history: Patient reports improvement in his symptoms with IV diuresis overnight Super therapeutic INR is improving as well with administration of vitamin K Patient with acute on chronic kidney disease stage IV - Constitutional Vitals: Temp Pulse Resp BP Pulse Ox 98.5 F 64 17 125/67 97 04/19/17 15:00 04/19/17 15:00 04/19/17 15:00 04/19/17 15:00 04/19/17 15:00 General appearance: Present: A&O X 3, no acute distress - Respiratory Respiratory exam: Present: CTAB. Absent: accessory muscle use, rales, rhonchi, wheezes - Cardiovascular Cardiovascular exam: Present: RRR, +S1, +S2. Absent: diastolic murmur, gallop, rubs, systolic murmur Internal Medicine: Result - Labs CBC & Chem 7: 04/19/17 08:36 04/19/17 08:36 Labs: Short CBC 04/19/17 Range/Units 08:36 WBC 7.4 (4.3-11.1) K/mcL Hgb 12.0 L (12.9-16.9) g/dL Hct 38.3 (37.5-50.1) % Plt Count 170 (140-400) K/mcL Neutrophils # 5.4 (1.6-8.9) K/mcL BMP 04/19/17 08:36 Sodium 137 Potassium 4.5 Chloride 107 Carbon Dioxide 24 BUN 44 H Creatinine 2.32 H Glucose 96 Calcium 8.2 L - ABG Interpretation ABG results: PT/INR, D-dimer PT 45.7 Seconds (9.4-12.1) H* D 04/19/17 03:26 - VTE Documentation of Mechanical Device: Intermittent pneumatic compression device Consult Discharge Plan - Plan Referrals: Shefali Orellana CNP [Primary Care Provider] - 04/23/17 1:30 pm
[2017-04-19] MEDS ORDERED: Warfarin perPT PO PRN (18:00)
[2017-04-20 04:16] LABS: INR 1.8; Prothrombin Time 19.6 Seconds (9.4-12.1)
[2017-04-20] MEDS: Furosemide 40 MG/4 ML VIAL IVP SCH (08:46)
[2017-04-20] MEDS: *HR* Amiodarone 200 MG TABLET PO SCH (08:47)
[2017-04-20] MEDS: Loratadine 10 MG TABLET PO SCH (08:47)
[2017-04-20] MEDS: Cholecalciferol (D-3) 1,000 UNIT TABLET PO SCH (08:47)
[2017-04-20] MEDS: Metoprolol XL (24 HR) Succ 50 MG TAB.ER.24H PO SCH (08:47)
[2017-04-20] MEDS: Folic Acid 1 MG TABLET PO SCH (08:47)
--- NOTE | 2017-04-20 15:08 | Discharge Summary ---
Date of Encounter: 04/20/17 Time of Encounter: 11:00 - Discharge Diagnosis (1) Acute exacerbation of CHF (congestive heart failure) Priority: Primary Status: Acute Qualifiers: Congestive heart failure type: unspecified congestive heart failure type Qualified Code(s): I50.9 - Heart failure, unspecified (2) Supratherapeutic INR Priority: Primary Status: Acute (3) [id number] kidney injury Priority: Secondary Status: Acute Qualifiers: Acute renal failure type: unspecified Chronic kidney disease stage: unspecified stage Qualified Code(s): N17.9 - Acute kidney failure, unspecified ; N18.9 - Chronic kidney disease, unspecified; N18.9 - Chronic kidney disease, unspecified (4) PAF (paroxysmal atrial fibrillation) Priority: Secondary Status: Acute (5) HLD (hyperlipidemia) Priority: Secondary Status: Acute Qualifiers: Hyperlipidemia type: unspecified Qualified Code(s): E78.5 - Hyperlipidemia , unspecified - Discharge Medications Prescriptions: Furosemide [Lasix] 20 mg PO DAILY #30 tablet Home Medications: Amiodarone [Cordarone] 200 mg PO QAM 01/06/15 [History] Metoprolol XL (24 HR) Succ [Toprol Xl] 50 mg PO QAM 01/06/15 [History] Mexiletine [Mexitil] 200 mg PO Q8H 01/06/15 [History] Pravastatin Sodium 10 mg PO QPM 01/06/15 [History] Cholecalciferol (D-3) [Vitamin D] 2,000 unit PO DAILY 06/04/16 [History] Folic Acid 1 mg PO DAILY #30 tablet 09/10/16 [Rx] Benzonatate [Tessalon] 200 mg PO TID PRN #30 capsule 04/14/17 [Rx] Guaifenesin [Mucinex] 600 mg PO BID #20 tab.er.12h 04/14/17 [Rx] cephALEXin [Keflex] 500 mg PO QID #40 capsule 04/14/17 [Rx] Besifloxacin HCl [Besivance] 1 drop OP TID 04/17/17 [History] Denosumab [Prolia (For Outpatient Infusion)] 60 mg SQ [id number] 04/17/17 [History ] Testosterone [Androgel] 2 appl TD DAILY 04/17/17 [History] Warfarin [Coumadin] 3 mg PO SUTUTHSA 04/17/17 [History] Warfarin [Coumadin] 4.5 mg PO MOWEFR 04/17/17 [History] Furosemide [Lasix] 20 mg PO DAILY #30 tablet 04/20/17 [Rx] Allergies/Adverse Reactions: 3 Allergy/AdvReac Type Severity Reaction Status Date / Time No Known Allergies Allergy Verified 06/04/16 11:53 Date of admission: 04/19/17 08:27 Primary care physician: Shefali Orellana CNP Consults: 04/19/17 09:54 Consult to Nephrology [CONS] Routine Consulting Provider: Kidney Kalyani/DULCE MARIA/BERHANE/EN Reason for Consult: CKD, diuresis recommendations Time Notified: 09:30 Call Completed: Yes - Patient Status Disposition: Home Health Service Condition: Fair - Discharge Instructions Instructions: Heart Failure (DC), Atrial Fibrillation (DC), Pacemaker (DC), Acute Kidney Injury (DC), Acute Kidney Injury (GEN), Anemia (GEN), Acute Kidney Injury, Geriatric Care Manager (GEN) Follow Up With: Manjit Appiah DO [Partnered Physician] - (call next week to make an appointment) Shefali Orellana CNP [Primary Care Provider] - 04/23/17 1:30 pm Hospital course: Patient is an 81-year-old male with past medical history significant for CHF, cardiac arrest with AICD since 2012, atrial fibrillation on amiodarone and HTN who presented to the ER on 04/19/17 due to dyspnea with exertion and shortness of breath. Patient reported of an increased of weight gain for the last several weeks in addition to gradually worsening dyspnea with exertion and shortness of breath. He also reports of discontinuing Lasix due to the advice of nephrology due to decreasing renal function. Patient came to the ER for further evaluation and was found to have acute on chronic heart failure in addition to supratherapeutic INR. Patient was admitted to the medical surgical floor for further evaluation and management. During patients hospital stay, his symptoms of shortness of breath resolved after treatment with IV diuresis. In addition, patients INR was reversed with vitamin K and was 1.8 on discharge from 17.1 on admission. Patient will be discharged to take Lasix 20 mg daily and to resume his Coumadin regimen and to follow-up with Coumadin clinic, cardiology and nephrology in 1 week. - Time Spent with Patient Total time spent providing and/or coordinating discharge services: Less than 30 minutes - Constitutional Vitals: Temp Pulse Resp BP Pulse Ox 97.7 F 60 16 137/81 98 04/20/17 12:00 04/20/17 12:00 04/20/17 12:00 04/20/17 12:00 04/20/17 12:00 General appearance: Present: A&O X 3, no acute distress - Respiratory Respiratory exam: Present: CTAB. Absent: accessory muscle use, rales, rhonchi, wheezes - Cardiovascular Cardiovascular exam: Present: RRR, +S1, +S2. Absent: diastolic murmur, gallop, rubs, systolic murmur - VTE Documentation of Mechanical Device: Intermittent pneumatic compression device
--- NOTE | 2017-04-20 15:10 | Physician Discharge Referral ---
Home Health/Hosp Referral Info Transfer to: Home Health - Diagnosis (1) Acute exacerbation of CHF (congestive heart failure) Priority: Primary Status: Acute (2) Supratherapeutic INR Priority: Primary Status: Acute (3) [id number] kidney injury Priority: Primary Status: Acute (4) PAF (paroxysmal atrial fibrillation) Priority: Secondary Status: Acute (5) HLD (hyperlipidemia) Priority: Secondary Status: Acute - Respiratory Orders Smoking Cessation: Smoking cessation has been advised. For more information, call the [place] Tobacco Quit Line at 4-527-QLKV-NOW. - Services Needed Following services are medically necessary services: Nursing (PT/INR and BMP for renal function on 04/23/17; results to be sent to primary care) - Transfer Medications Prescriptions: Furosemide [Lasix] 20 mg PO DAILY #30 tablet Home Medications: Amiodarone [Cordarone] 200 mg PO QAM 01/06/15 [History] Metoprolol XL (24 HR) Succ [Toprol Xl] 50 mg PO QAM 01/06/15 [History] Mexiletine [Mexitil] 200 mg PO Q8H 01/06/15 [History] Pravastatin Sodium 10 mg PO QPM 01/06/15 [History] Cholecalciferol (D-3) [Vitamin D] 2,000 unit PO DAILY 06/04/16 [History] Folic Acid 1 mg PO DAILY #30 tablet 09/10/16 [Rx] Benzonatate [Tessalon] 200 mg PO TID PRN #30 capsule 04/14/17 [Rx] Guaifenesin [Mucinex] 600 mg PO BID #20 tab.er.12h 04/14/17 [Rx] cephALEXin [Keflex] 500 mg PO QID #40 capsule 04/14/17 [Rx] Besifloxacin HCl [Besivance] 1 drop OP TID 04/17/17 [History] Denosumab [Prolia (For Outpatient Infusion)] 60 mg SQ [id number] 04/17/17 [History ] Testosterone [Androgel] 2 appl TD DAILY 04/17/17 [History] Warfarin [Coumadin] 3 mg PO SUTUTHSA 04/17/17 [History] Warfarin [Coumadin] 4.5 mg PO MOWEFR 04/17/17 [History] Furosemide [Lasix] 20 mg PO DAILY #30 tablet 04/20/17 [Rx] Allergies/Adverse Reactions: 3 Allergy/AdvReac Type Severity Reaction Status Date / Time No Known Allergies Allergy Verified 06/04/16 11:53 Certification: Further, I certify that my clinical findings support that this patient is homebound (i.e. absences from home require considerable and taxing effort and are for medical reasons or mandaen services or infrequently or short duration when for other reasons) because: Homebound Reason: Leaving home requires considerable and taxing effort due to condition Attestation: My signature below is to certify that this patient is under my care and that I, or nurse practitioner, or a physician's billing assistant working with me, has a face-to -face encounter with this patient.
[2017-04-20 15:15] VITALS: BP 110/58
[2017-04-20] MEDS ORDERED: Furosemide 20 MG/2 ML VIAL IVP ONE (15:45)
[2017-04-20] MEDS ORDERED: *HR* Warfarin 3 MG TABLET PO ONE (18:00)
== END 2017-04-20 18:30 | disposition home health service (06) | DRG 291 ==
LOC: EMEROO 15:31 → 2NENU 15:31 → SUATTDRO 19:24 → 2NENU 19:51
PROVIDERS: ADMIT Internal Medicine; ATTEND Hospitalist

== ENCOUNTER 2017-05-09 10:38 | Observation (INO) ==
[2017-05-09] MEDS ORDERED: 0.9 % Sodium Chloride 1,000 ML IVC ONE (11:16)
--- NOTE | 2017-05-09 11:34 | Emergency Department Note ---
Disposition Clinical Impression: Acute kidney injury, Chronic a-fib, Pleural effusion CHF (congestive heart failure) Qualifiers: Congestive heart failure type: unspecified Congestive heart failure chronicity : unspecified Qualified Code(s): I50.9 - Heart failure, unspecified Disposition: Admitted As Inpatient Condition: Fair Time of Disposition: 15:16 Nausea/Vomiting/Diarrhea HPI - General Chief complaint: ED Nausea/Vomiting/Diarrhea Stated complaint: Possible C-Diff Time Seen by Provider: 05/09/17 11:05 Source: patient Limitations: no limitations Nursing Notes Reviewed: Yes Vital Signs Reviewed: Yes - History of Present Illness HPI Narrative: 81-year-old male history of HTN, Afib, COPD, CAD, CHF, presents with diarrhea and loose stools for the last several weeks, he states he has 8/10 watery bowel movements a day. Patient was just hospitalized for CHF exacerbation just before , about 3 weeks ago, prior to that he had received Keflex antibiotics for URI patient reports no history of C. difficile, he states that he was being evaluated by a home health nurse, and she noted that he is had increased stool frequency and loose stools, this woke with his margin clerk Dr. Appiah recommended that he come into the ER for evaluation for C. difficile colitis. The patient currently states that his belly is 0 out of 10 abdominal pain, denies hemoptysis, he has had leg swelling and weight changes getting up to 20 pounds and now he is down about 8 pounds from that since his hospitalization current weight is 203 at home. Patient denies chest pain, denies dysuria or hematuria. Pt Subjective Complaint: diarrhea Onset (ago): week(s) Description of emesis: watery Number of episodes of emesis: 10 Description of Diarrhea: water Associated Abdominal Pain: No Severity: none, now resolved Severity scale (1-10): 1 Quality: cramping Improves with: nothing Worsens with: nonthing Associated symptoms: Denies: myalgias, chest pain, cough, diaphoresis, loss of appetite, malaise, nausea/vomiting - Related Data Home Medications Medication Instructions Recorded Confirmed Amiodarone [Cordarone] 200 mg PO QAM 01/06/15 05/09/17 Metoprolol XL (24 HR) Succ [Toprol 50 mg PO QAM 01/06/15 05/09/17 Xl] Mexiletine [Mexitil] 200 mg PO Q8H 01/06/15 05/09/17 Pravastatin Sodium 10 mg PO QPM 01/06/15 05/09/17 Cholecalciferol (D-3) [Vitamin D] 2,000 unit PO DAILY 06/04/16 05/09/17 Denosumab [Prolia (For Outpatient 60 mg SQ [id number] 04/17/17 05/09/17 Infusion)] Testosterone [Androgel] 2 appl TD DAILY 04/17/17 05/09/17 Warfarin [Coumadin] 1.5 mg PO TUTHSA 04/17/17 05/09/17 Warfarin [Coumadin] 3 mg PO SUMOWEFR 04/17/17 05/09/17 Lisinopril [Lisinopril] 2.5 mg PO DAILY 05/09/17 05/09/17 Previous Rx's Medication Instructions Recorded Folic Acid 1 mg PO DAILY #30 tablet 09/10/16 Furosemide [Lasix] 20 mg PO DAILY #30 tablet 04/20/17 Allergies Allergy/AdvReac Type Severity Reaction Status Date / Time No Known Allergies Allergy Verified 05/09/17 13:18 All systems ED: reviewed and negative except as stated. Review of Systems: As Per HPI Constitutional: Denies: fever, chills Eyes: Denies: eye pain ENT ED: Denies: ear pain Cardiovascular: Denies: chest pain Respiratory: Denies: cough, dyspnea Gastrointestinal: Reports: as per HPI, diarrhea. Denies: nausea, vomiting, hematemesis, melena Genitourinary: Denies: urgency, dysuria Musculoskeletal: Denies: back pain Integumentary: Denies: rash Neurological: Denies: headache Past Medical History - Past Medical History Attestation: Yes The following information was validated with the patient. Source: patient Medical history: Reports: atrial fibrillation, cancer, CHF, coronary artery disease, hyperlipidemia, hypertension, renal disease, other Surgical history: Reports: appendectomy, cataract, colectomy, prostatectomy, other (VT ablation ([facility])), AICD Psychiatric history: Reports: no psych history - Social History Smoking Status: Former smoker Smokeless Tobacco Status: No Alcohol use: Reports: occasionally Drug use: Reports: none Physical Exam Constitutional: Elderly male appears in no acute distress, is mildly tremulous Eyes: PERRLA, sclera anicteric ENT & Mouth: MM dry Neck: normal inspection, neck is supple Resp: CTA bilaterally, no resp distress CV: RRR, no m/g/r GI: normal inspection, soft, normoactive bowel sounds, softly distended abdomen with no guarding or rigidity Neuro: A&O3, CNII-XII grossly intact, BASILIO Skin: on limited exam, skin intact with no rashes or lesions - General Limitations: no limitations General appearance: alert, in no apparent distress Course Course Narrative: 81-year-old male sent in to be evaluated for C. difficile colitis, even multiple episodes of loose stools and this is on the differential, basic lab work fluid rehydrate, noncontrast CT check electrolytes and C. difficile is able to give a stool sample, he is hemodynamically stable at this time with normal vital signs, and no peritoneal signs on abdominal exam cervix suspect that he will be possibly able to go home does not have C. difficile - Reevaluation(s) Reevaluation #1: Patient had formed stool therefore were not able to get C. difficile or stool cultures, interestingly, and likely secondary to much diuresis with Lasix his renal function was worsening, had evidence of acute on chronic kidney injury she will be admitted to the hospitalist service to Dr. Douglas's service no evidence of C. difficile but again unable to test secondary to formed stools, CT scan with evidence of dilated inferior vena cava. Admitted to Dr Pastor. - Consultations Consultation #1: Consultation with Dr. Lemus for acute kidney injury, she will evaluate the patient in the hospital setting, I spoke with her in the ER. Time: 14:30 Vital Signs Temperature 97.3 F L 05/09/17 10:49 Pulse Rate 78 05/09/17 10:49 Respiratory Rate 16 05/09/17 10:49 Blood Pressure 133/64 05/09/17 10:49 O2 Sat by Pulse Oximetry 90 05/09/17 10:49 Temperature 97.5 F L 05/09/17 16:07 Pulse Rate 62 05/09/17 16:07 Respiratory Rate 16 05/09/17 16:07 Blood Pressure 149/78 05/09/17 16:07 O2 Sat by Pulse Oximetry 98 05/09/17 16:07 Oxygen Delivery Oxygen Delivery Room Air Nausea/Vomiting/Diarrhea - Differential Diagnosis Likely: gastroenteritis, clostridium difficile infection, drug-induced nausea and vomitting, dehydration - Medical Records Medical records reviewed: Yes I reviewed the patient's medical records. - Lab Data Lab results reviewed: Yes I reviewed the patient's lab results. Result diagrams: 05/09/17 11:26 05/09/17 11:26 Lab Results 05/09/17 05/09/17 05/09/17 Range/Units 11:26 11:26 11:49 WBC 5.8 (4.3-11.1) K/mcL RBC 4.13 L (4.19-5.50) M/mcL Hgb 12.3 L (12.9-16.9) g/dL Hct 39.2 (37.5-50.1) % MCV 94.9 (83.0-100.0) fL MCH 29.8 (28.0-33.3) pg MCHC 31.4 L (31.6-35.5) g/dL RDW 15.3 H (11.5-14.5) % Plt Count 189 (140-400) K/mcL MPV 10.6 (9.4-12.4) fL Immature Gran % 0.3 (0-4) % Seg Neutrophils % 76.4 % Lymphocytes % 9.7 % Monocytes % 11.7 % Eosinophils % 1.2 % Basophils % 0.7 % Neutrophils # 4.4 (1.6-8.9) K/mcL Lymphocytes # 0.6 (0.6-4.6) K/mcL Monocytes # 0.7 (0.0-1.3) K/mcL Eosinophils # 0.1 (0.0-0.6) K/mcL Basophils # 0.0 (0.0-0.2) K/mcL Sodium 138 (136-145) mEq/L Potassium 4.4 (3.5-5.1) mEq/L Chloride 108 H (98-107) mEq/L Carbon Dioxide 23 (23-29) mEq/L BUN 58 H (8-23) mg/dL Creatinine 3.51 H (0.70-1.30) mg/dL Est GFR ( Amer) 20 L (> 60) Est GFR (Non-Af Amer) 17 L (> 60) BUN/Creatinine Ratio 17 (6-26) Glucose 76 (70-105) mg/dL Calculated Osmolality 301 H (280-300) Uric Acid 9.7 H (2.3-7.6) mg/dL Calcium 8.9 (8.6-10.3) mg/dL Total Bilirubin 1.3 H (0.3-1.0) mg/dL AST 38 (13-39) Units/L ALT 29 (7-52) Units/L Alkaline Phosphatase 93 (34-104) Units/L Creatine Kinase 88 (30-223) Units/L Serum Total Protein 6.1 L (6.4-8.9) g/dL Albumin 3.2 L (3.5-5.7) g/dL Globulin 2.9 (2.4-3.5) g/dL Albumin/Globulin Ratio 1.1 (1.1-2.2) Lipase 38 (11-82) Units/L Urine Color (Yellow) Urine Clarity (Clear) Urine pH (5.0-8.0) pH Units Ur Specific [place] (1.010-1.025) Urine Protein (Neg-Trace) mg/dL Urine Glucose (UA) (Normal) mg/dL Urine Ketones (Negative) mg/dL Urine Blood (Negative) Urine Nitrite (Negative) Urine Bilirubin (Negative) Urine Urobilinogen (Normal) mg/dL Ur Leukocyte Esterase (Negative) Ur Culture Indicated? (NO) Specimen Rejected Not Liquid 05/09/17 Range/Units 12:46 WBC (4.3-11.1) K/mcL RBC (4.19-5.50) M/mcL Hgb (12.9-16.9) g/dL Hct (37.5-50.1) % MCV (83.0-100.0) fL MCH (28.0-33.3) pg MCHC (31.6-35.5) g/dL RDW (11.5-14.5) % Plt Count (140-400) K/mcL MPV (9.4-12.4) fL Immature Gran % (0-4) % Seg Neutrophils % % Lymphocytes % % Monocytes % % Eosinophils % % Basophils % % Neutrophils # (1.6-8.9) K/mcL Lymphocytes # (0.6-4.6) K/mcL Monocytes # (0.0-1.3) K/mcL Eosinophils # (0.0-0.6) K/mcL Basophils # (0.0-0.2) K/mcL Sodium (136-145) mEq/L Potassium (3.5-5.1) mEq/L Chloride (98-107) mEq/L Carbon Dioxide (23-29) mEq/L BUN (8-23) mg/dL Creatinine (0.70-1.30) mg/dL Est GFR ( Amer) (> 60) Est GFR (Non-Af Amer) (> 60) BUN/Creatinine Ratio (6-26) Glucose (70-105) mg/dL Calculated Osmolality (280-300) Uric Acid (2.3-7.6) mg/dL Calcium (8.6-10.3) mg/dL Total Bilirubin (0.3-1.0) mg/dL AST (13-39) Units/L ALT (7-52) Units/L Alkaline Phosphatase (34-104) Units/L Creatine Kinase (30-223) Units/L Serum Total Protein (6.4-8.9) g/dL Albumin (3.5-5.7) g/dL Globulin (2.4-3.5) g/dL Albumin/Globulin Ratio (1.1-2.2) Lipase (11-82) Units/L Urine Color Yellow (Yellow) Urine Clarity Clear (Clear) Urine pH 6.0 (5.0-8.0) pH Units Ur Specific [place] 1.019 (1.010-1.025) Urine Protein Negative (Neg-Trace) mg/dL Urine Glucose (UA) Normal (Normal) mg/dL Urine Ketones Negative (Negative) mg/dL Urine Blood Negative (Negative) Urine Nitrite Negative (Negative) Urine Bilirubin Negative (Negative) Urine Urobilinogen Normal (Normal) mg/dL Ur Leukocyte Esterase Negative (Negative) Ur Culture Indicated? NO (NO) Specimen Rejected - Radiology Data Radiology results reviewed: Yes I reviewed the patient's radiology results. Abdomen/Pelvis CT 05/09/17 11:19 IMPRESSION: 1. Cardiomegaly and moderate right pleural effusion noted along with mild to moderate ascites and some body wall edema. IVC and iliac veins also appear rather prominent and engorged. Findings possibly due to combination of CHF and fluid overload. 2. No CT findings to suggest colitis. 3. Marked colonic diverticulosis. D/ / Clifton Blankenship MD / Clifton Blankenship MD Interpreting Provider: Clifton Blankenship MD Chest X-Ray 05/09/17 11:19 IMPRESSION: Decreased bilateral pleural effusions compared to the prior study. Mild residual bibasilar airspace disease which could represent atelectasis or pneumonia. D/ / Kemar Yi MD / Kemar Yi MD Interpreting Provider: Kemar Yi MD Attestation Statement - Attestation Attestation: I, Jefry Valdez, examined this patient and my medical decision-making was reviewed with the FOOT SPECIALIST/PA/Advanced Practice Nurse/Resident Physician. I agree with the documented findings, disposition and treatment plan as described except to the extent set forth below. 81-year-old male presents emergency Department with concerns of multiple episodes of diarrhea over the past few days. Patient states he was visited by a home health nurse yesterday who spoke with Dr. Nic Redmond who then referred him to present to the emergency department for continuation of his care. Patient states today his stools have been slightly formed. Denies history of chest pain, syncope, palpitations. Patient has acute renal failure on laboratory testing. CT of the abdomen and pelvis showed engorged iliac vessels however it is unclear as to the etiology of this finding. Chest x-ray showed bibasilar atelectasis versus pneumonia however patient's does not have respiratory distress and is not febrile. He will be admitted to the hospital for further care and evaluation.
[2017-05-09 11:48] LABS: Basophils % 0.7 %; Eosinophils # 0.1 K/mcL (0.0-0.6); Eosinophils % 1.2 %; Hematocrit 39.2 % (37.5-50.1); Hemoglobin 12.3 g/dL (12.9-16.9); Immature Granulocytes % 0.3 % (0-4); Lymphocytes # 0.6 K/mcL (0.6-4.6); Lymphocytes % 9.7 %; Mean Corpuscular HGB Conc 31.4 g/dL (31.6-35.5); Mean Corpuscular Hemoglobin 29.8 pg (28.0-33.3); Mean Corpuscular Volume 94.9 fL (83.0-100.0); Mean Platelet Volume 10.6 fL (9.4-12.4); Monocytes # 0.7 K/mcL (0.0-1.3); Monocytes % 11.7 %; Neutrophils # 4.4 K/mcL (1.6-8.9); Platelet Count 189 K/mcL (140-400); Red Blood Count 4.13 M/mcL (4.19-5.50); Red Cell Distribution Width 15.3 % (11.5-14.5); Segmented Neutrophils % 76.4 %
[2017-05-09 12:42] LABS: Albumin 3.2 g/dL (3.5-5.7); Albumin/Globulin Ratio 1.1 (1.1-2.2); Bilirubin,Total 1.3 mg/dL (0.3-1.0); Calcium 8.9 mg/dL (8.6-10.3); Globulin 2.9 g/dL (2.4-3.5); Potassium 4.4 mEq/L (3.5-5.1); Total Protein 6.1 g/dL (6.4-8.9)
[2017-05-09 12:59] LABS: Bilirubin,Urine Negative (Negative); Blood,Urine Negative (Negative); Clarity,Urine Clear (Clear); Color,Urine Yellow (Yellow); Glucose,Urine (UA) Normal (Normal); Ketones,Urine Negative (Negative); Leukocyte Esterase,Urine Negative (Negative); Nitrite,Urine Negative (Negative); Protein,Urine Negative (Neg-Trace); Specific Gravity,Urine 1.019 (1.010-1.025); Urobilinogen,Urine Normal (Normal)
--- NOTE | 2017-05-09 16:19 | Nephrology Consult Note ---
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 Etiology is not entirely clear as history suggests hypovolemia given profuse watery diarrhea and poor by mouth intake in the setting of continued diuretic use however on exam patient does have mild peripheral edema and CT scan was suggestive of bowel and soft tissue edema as well as pleural effusion. Chest x-ray does show the pleural effusion is improved from recent admission. Patient did receive 500 mL of IV fluids in the emergency department. Would recommend holding Lasix and very cautious fluid hydration as clinical status allows. Will check uric acid, CK, urine sodium, urine osmole mildly, urine eosinophils to further investigate the patient's fluid status and LA. recommend strict I's and O's. Continue renal protective strategy by avoiding nephrotoxins and his medications based on GFR. (2) Chronic kidney disease Status: Acute As above. Qualifiers: Chronic kidney disease stage: stage 4 (severe) Qualified Code(s): N18.4 - Chronic kidney disease, stage 4 (severe) (3) Diarrhea Status: Acute Further management per primary. Qualifiers: Diarrhea type: unspecified type Qualified Code(s): R19.7 - Diarrhea, unspecified (4) Chronic a-fib Status: Chronic Further management per primary History of Present Illness - Reason for Consult Consult date: 05/09/17 Acute Kidney Injury, Chronic Kidney Disease Requesting physician: Archie Faith - Chief Complaint Diarrhea - History of Present Illness Patient is an 81-year-old male with history of chronic kidney disease stage III , atrial fibrillation who presents with diarrhea. Patient states that approximately a month ago he was treated for an outpatient upper respiratory infection with antibiotics. Shortly after this he was admitted for acute heart failure. He states that since then he has not been feeling well and had significant diarrhea, up to 10 times daily that was extremely watery in nature. Denies bloody or black stools. He states he was not drinking and eating a lot during this episode. He states he continued to take his medications as prescribed. He also states that he had some shoulder pain for which he took 2 doses of ibuprofen over the course of 2 days. He states he continued to take his Lasix. He reports good urine output. He denies chest pain, shortness of breath, abdominal pain, nausea, vomiting, fever, chills. Past Med Surg Social Fam HX - Past Medical History Medical history: atrial fibrillation, cancer, CHF, coronary artery disease, hyperlipidemia, hypertension, renal disease, other Psychiatric history: no psych history - Past Surgical History Surgical History: appendectomy, cataract, colectomy, prostatectomy, other (VT ablation ([facility])), AICD - Social History Smoking Status: Former smoker Smokeless Tobacco Status: No Alcohol use: occasionally Drug use: none - Family History Mother Adopted: No Family Member Ethnicity: Non- Living Status: Hx Family Cardiac Disorders: Yes Hx Family GI Disorders: Yes (CRC resectable) Brother Hx Family Cancer: Yes (esophageal cancer, other brother had liver cancer) Father Adopted: No Family Member Ethnicity: Non- Living Status: Hx Family Cardiac Disorders: Yes Medications and Allergies Amiodarone [Cordarone] 200 mg PO QAM 01/06/15 [History] Metoprolol XL (24 HR) Succ [Toprol Xl] 50 mg PO QAM 01/06/15 [History] Mexiletine [Mexitil] 200 mg PO Q8H 01/06/15 [History] Pravastatin Sodium 10 mg PO QPM 01/06/15 [History] Cholecalciferol (D-3) [Vitamin D] 2,000 unit PO DAILY 06/04/16 [History] Denosumab [Prolia (For Outpatient Infusion)] 60 mg SQ [id number] 04/17/17 [History ] Testosterone [Androgel] 2 appl TD DAILY 04/17/17 [History] Warfarin [Coumadin] 1.5 mg PO TUTHSA 04/17/17 [History] Warfarin [Coumadin] 3 mg PO SUMOWEFR 04/17/17 [History] Furosemide [Lasix] 20 mg PO DAILY #30 tablet 04/20/17 [Rx] Lisinopril 2.5 mg PO DAILY 05/09/17 [History] Folic Acid 1 mg PO DAILY #30 tablet 05/13/17 [Rx] 3 Allergy/AdvReac Type Severity Reaction Status Date / Time No Known Allergies Allergy Verified 05/09/17 13:18 Review of Systems All Systems: reviewed and no additional remarkable complaints except as stated Exam - Vital Signs Vital signs: Initial Vital Signs Temp Pulse Resp BP Pulse Ox 97.3 F L 78 16 133/64 90 05/09/17 10:49 05/09/17 10:49 05/09/17 10:49 05/09/17 10:49 05/09/17 10:49 Vital Signs - Last 8 Hours Pulse Resp BP Pulse Ox 05/09/17 15:44 62 19 145/77 99 - General Appearance General appearance: well-developed, well-nourished, appears started age EENT: ATNC, mucous membranes moist Neck: supple Respiratory: clear Cardiology: no murmurs, no rub, no gallops, edema (1+ lower extremity bilaterally), irregular rhythm Gastrointestinal: normoactive bowel sounds, no tenderness, no guarding Integumentary: no rash, warm and dry Neurologic: no focal deficit, alert and oriented x3 Musculoskeletal: no cyanosis, no clubbing Results - Lab Results 05/09/17 11:26 05/09/17 11:26 Most recent lab results Calcium 8.9 mg/dL (8.6-10.3) 05/09/17 11:26 Consult Discharge Plan - Plan Instructions: Heart Failure (DC), Low Sodium Diet (DC) Additional Instructions: F/up with PCP in 1-2 weeks F/up with Nephrology as scheduled Referrals: Shefali Orellana CNP [Primary Care Provider] - (web request) <Mitesh Sheridan - Last Filed: 05/19/17 23:33> Date of Encounter: 05/09/17 Exam - Vital Signs Vital signs: Initial Vital Signs Temp Pulse Resp BP Pulse Ox 97.3 F L 78 16 133/64 90 05/09/17 10:49 05/09/17 10:49 05/09/17 10:49 05/09/17 10:49 05/09/17 10:49 Results - Lab Results 05/10/17 05:03 05/11/17 06:46 Most recent lab results Calcium 8.1 mg/dL (8.6-10.3) L 05/11/17 06:46 Phosphorus 3.0 mg/dL (2.7-4.5) 05/11/17 06:46 Magnesium 1.9 mg/dL (1.6-2.6) 05/11/17 06:46 Urine Sodium 33.2 mEq/L 05/10/17 20:52 - Attending Attestation I examined this patient and my medical decision-making was reviewed with the Resident Physician/HEALTH ASSOCIATE. I agree with the documented findings, disposition and treatment plan as described except to the extent set forth below. Pt seen and examined and in brief 81 y o male with PMH of CHF and CKD stage 3 admitted with diarrhea and noted with elevated SCr while on diuretics along with 2 days of NSAIDs use suspect relative volume depletion. Will initiate LA workup.Agree with gentle and cautious hydration while holding diuretics. No acute indication for IT SUPPORT ENGINEER at this time. Avoid nephrotoxins if possible.
[2017-05-09 16:41] LABS: Uric Acid 9.7 mg/dL (2.3-7.6)
[2017-05-09] MEDS ORDERED: Naloxone 0.4 MG/ML INJ IVP PRN ×2 (18:34→19:51)
--- NOTE | 2017-05-09 18:49 | Internal Med History&Physical ---
<Daniel Carson - Last Filed: 05/09/17 19:43> Date of Encounter: 05/09/17 Time of Encounter: 18:41 Assessment and Plan (1) Hndnp-ni-xodgqhr kidney injury Current visit: Yes Status: Acute KILEY on CK D stage IIIB with today's GFR of 17 when compared to prior GFR he appears to be progressing to stage IV. Patient reports a four-day history of watery diarrhea reporting approximately 8-10 watery bowel movements per day. Additionally, he reports he has been unable to take in fluids. Per his history he appears to be hypovolemic which could explain worsening renal function. However, he does have 1+ pitting bilateral peripheral edema and CT of abdomen and pelvis suggested pleural effusions and soft tissue edema. -Nephrology consult-nephrology has already seen the patient and recommends holding Lasix and starting cautious fluid hydration as clinically tolerable. -Additionally, debrander was ordered uric acid, CK, urine sodium, urine osmolality, and urine eosinophils. -Avoid nephrotoxic agents -strict intake and output monitoring -Daily weights -CBC D, BMP in the a.m. -Continuous telemetry, continuous SPO2 monitoring -Respiratory support per nasal cannula when necessary; goal to maintain SPO2 greater than 92% -DVT prophylaxis includes continuing patient's Coumadin with pharmacy to dose and EPCD'S Qualifiers: Acute renal failure type: unspecified Chronic kidney disease stage: stage 3 (moderate) Qualified Code(s): N17.9 - Acute kidney failure, unspecified; N18.3 - Chronic kidney disease, stage 3 (moderate); N18.3 - Chronic kidney disease, stage 3 (moderate) (2) Diarrhea Current visit: Yes Status: Acute Patient reports a 4 day history of watery diarrhea with approximately 8-10 bowel movements per day. Last episode was this morning. However, as of this afternoon he reports that he is now starting to pass formed stools. Due to recent use of Keflex. The patient may have had Clostridium difficile. An attempt was made for stool collection to test for Clostridium difficile however was rejected in the lab because the stool was semisoft and did not meet criteria for C-diff testing. -obtain c-diff PCR should the diarrhea return Qualifiers: Diarrhea type: unspecified type Qualified Code(s): R19.7 - Diarrhea, unspecified (3) CHF (congestive heart failure) Current visit: Yes Status: Acute Patient has mild diastolic dysfunction with an ejection fraction of 40-45% CT scan shows moderate right pleural effusion, patient has 1+ pitting bilateral lower extremity edema At the time he is in no distress, resting comfortably on room air with SPO2 of 96% and he is hemodynamically stable -i will hold lasix for now at the recommendation of emergency preparedness coordinator due to acute kidney injury -Continue telemetry, continuous SPO2 monitoring -Strict intake and output monitoring -Obtain weight daily Qualifiers: Congestive heart failure type: unspecified Congestive heart failure chronicity: unspecified Qualified Code(s): I50.9 - Heart failure, unspecified (4) DVT prophylaxis Current visit: Yes Status: Acute EPCD'S Internal Medicine - H&P: HPI Chief complaint: diarrhea Admitted From: Home Plans for Post Hospital Care: Home History of present illness: Mr. Auguste is a 81 year old male with a PMH of HTN, Afib, COPD, CAD,CHF, CKD IIIb who presents today to [facility] with diarrhea which he states he has had for the last 4-days. He is reporting watery bowel movements approximately 8-10 per day. He states he was recently placed on keflex for a URI and d/t this there is some concern for C-diff infection. He denies any abdominal pain, or nausea. Additionally, He reports that he was treated a few weeks ago at [facility] with an acute exacerbation of CHF. At that time he was started on lasix and sent home. Since discharge he has felt weak and intermittently dyspneic. He reports an increased in leg swelling. He denies any cough, congestion, chest pain, palpitations, unilateral extremity swelling or pain. Past Med Surg Social Fam HX - Past Medical History Medical history: atrial fibrillation, cancer, CHF, coronary artery disease, hyperlipidemia, hypertension, renal disease, other Psychiatric history: no psych history - Past Surgical History Surgical History: appendectomy, cataract, colectomy, prostatectomy, other (VT ablation ([facility])), AICD - Social History Smoking Status: Former smoker Smokeless Tobacco Status: No Alcohol use: occasionally Drug use: none - Family History Mother History Unknown: Yes Adopted: No Family Member Ethnicity: Non- Living Status: Hx Family Cardiac Disorders: Yes Hx Family GI Disorders: Yes (CRC resectable) Brother Hx Family Cancer: Yes (esophageal cancer, other brother had liver cancer) Father History Unknown: Yes Adopted: No Family Member Ethnicity: Non- Living Status: Hx Family Cardiac Disorders: Yes Internal Medicine - H&P: Meds Amiodarone [Cordarone] 200 mg PO QAM 01/06/15 [History] Metoprolol XL (24 HR) Succ [Toprol Xl] 50 mg PO QAM 01/06/15 [History] Mexiletine [Mexitil] 200 mg PO Q8H 01/06/15 [History] Pravastatin Sodium 10 mg PO QPM 01/06/15 [History] Cholecalciferol (D-3) [Vitamin D] 2,000 unit PO DAILY 06/04/16 [History] Folic Acid 1 mg PO DAILY #30 tablet 09/10/16 [Rx] Denosumab [Prolia (For Outpatient Infusion)] 60 mg SQ [id number] 04/17/17 [History ] Testosterone [Androgel] 2 appl TD DAILY 04/17/17 [History] Warfarin [Coumadin] 1.5 mg PO TUTHSA 04/17/17 [History] Warfarin [Coumadin] 3 mg PO SUMOWEFR 04/17/17 [History] Furosemide [Lasix] 20 mg PO DAILY #30 tablet 04/20/17 [Rx] Lisinopril [Lisinopril] 2.5 mg PO DAILY 05/09/17 [History] 3 Allergy/AdvReac Type Severity Reaction Status Date / Time No Known Allergies Allergy Verified 05/09/17 13:18 All Systems PM: A 10-system review of systems was performed and is negative for pertinent findings except as documented above in the HPI. Review of systems: REVIEW OF SYSTEMS GENERAL: Negative for any nausea, vomiting, fevers,or weight loss. Positive for intermittent chills NEUROLOGIC: Negative for any blurry vision, blind spots, double vision, facial asymmetry, dysphagia, dysarthria, hemiparesis, hemisensory deficits, vertigo, ataxia. HEENT: Negative for any head trauma, neck trauma, neck stiffness, photophobia, phonophobia, sinusitis, rhinitis. CARDIAC: Negative for any chest pain. Positive for BLE edema, weight gain and dyspnea on exertion. PULMONARY: Negative for wheezing, COPD, cough, or congestion. Positive for dyspnea on exertion GASTROINTESTINAL: Negative for any abdominal pain, nausea, vomiting, bright red blood per rectum, melena. Positive for 8-10 water BM's per day for the last 4- days. GENITOURINARY: Negative for any dysuria, hematuria, incontinence. INTEGUMENTARY: Negative for any rashes, cuts, insect bites. RHEUMATOLOGIC: Negative for any joint pains, photosensitive rashes, history of vasculitis or kidney problems. HEMATOLOGIC: Negative for any abnormal bruising, frequent infections or bleeding. - Constitutional Vitals: Temp Pulse Resp BP Pulse Ox 97.5 F L 62 16 149/78 98 05/09/17 16:07 05/09/17 16:07 05/09/17 16:07 05/09/17 16:07 05/09/17 17:02 General appearance: Present: cooperative, A&O X 3, no acute distress, answers questions appropriately - Head Head exam: Present: atraumatic, normocephalic - Eye Eye exam: Present: PERRL, conjuntiva pink, sclera anicteric Pupils: Present: PERRL - Neck Neck exam general surgery: Present: supple, trachea midline. Absent: lymphadenopathy - Respiratory Respiratory exam: Present: decreased breath sounds, CTAB. Absent: accessory muscle use, chest wall tenderness, rales, respiratory distress, rhonchi, wheezes , tachypnea - Cardiovascular Cardiovascular exam: Present: bradycardia, distant heart sounds, +S1, +S2. Absent: diastolic murmur, gallop, irregular rhythm, JVD, rubs, systolic murmur - GI/Abdominal GI/Abdominal exam: Present: normal bowel sounds, soft (round non-distended). Absent: firm, guarding, rebound, rigid - Extremities Exam Extremities exam: Present: pedal edema (BLE 1+), warm, radial pulses palpable and symmetrical. Absent: calf tenderness, cyanotic, normal capillary refill ( sluggish cap refill BL hands; nail beds are cyanotic), normal inspection, mottling, tenderness - Neurological Exam Neurological exam: Present: alert, oriented X3. Absent: facial droop, speech deficit - Skin Skin exam: Present: dry, intact Internal Med - H&P Results - Labs CBC & Chem 7: 05/09/17 11:26 05/09/17 11:26 - Diagnostic Studies Chest x-ray Status: image reviewed by me Additional comments: Decreased bilateral pleural effusions compared to the prior study. Mild residual bibasilar airspace disease which could represent atelectasis or pneumonia. CT scan - abdomen Status: image reviewed by me Additional comments: 1. Cardiomegaly and moderate right pleural effusion noted along with mild to moderate ascites and some body wall edema. IVC and iliac veins also appear rather prominent and engorged. Findings possibly due to combination of CHF and fluid overload. 2. No CT findings to suggest colitis. 3. Marked colonic diverticulosis. <Anne Marie Yuan - Last Filed: 05/09/17 21:50> Date of Encounter: 05/09/17 Internal Medicine - H&P: HPI History of present illness: Mr. Auguste is a 81 year old male All Systems PM: A 10-system review of systems was performed and is negative for pertinent findings except as documented above in the HPI. - Constitutional Vitals: Temp Pulse Resp BP Pulse Ox 97.5 F L 61 17 127/61 95 05/09/17 19:51 05/09/17 19:51 05/09/17 19:51 05/09/17 19:51 05/09/17 19:51 Internal Med - H&P Results - Labs CBC & Chem 7: 05/09/17 11:26 05/09/17 11:26 - Attending Attestation Several dx hx of diarrhea 8 x daily, non bloody Recently here in Dec and treated for bronchitis with antibiotics Increased fatigue A/P Diarrhea - infectious w/u to include c.diff Renal-LA - IVF - I&O - trend Cr - supportive care
[2017-05-09 19:39] LABS: INR 2.9; Prothrombin Time 32.4 Seconds (9.4-12.1)
[2017-05-09] MEDS ORDERED: 0.9 % Sodium Chloride 1,000 ML IVC SCH (21:00)
[2017-05-09] MEDS ORDERED: *HR* Warfarin 3 MG TABLET PO STA (22:32)
[2017-05-10 05:44] LABS: Basophils % 0.7 %; Eosinophils # 0.1 K/mcL (0.0-0.6); Eosinophils % 2.6 %; Hematocrit 34.9 % (37.5-50.1); Hemoglobin 11.3 g/dL (12.9-16.9); Immature Granulocytes % 0.4 % (0-4); Lymphocytes # 0.8 K/mcL (0.6-4.6); Mean Corpuscular HGB Conc 32.4 g/dL (31.6-35.5); Mean Corpuscular Hemoglobin 30.3 pg (28.0-33.3); Mean Corpuscular Volume 93.6 fL (83.0-100.0); Mean Platelet Volume 10.1 fL (9.4-12.4); Monocytes # 0.7 K/mcL (0.0-1.3); Monocytes % 12.5 %; Neutrophils # 3.7 K/mcL (1.6-8.9); Platelet Count 150 K/mcL (140-400); Red Blood Count 3.73 M/mcL (4.19-5.50); Red Cell Distribution Width 15.1 % (11.5-14.5); Segmented Neutrophils % 68.8 %
[2017-05-10 05:49] LABS: INR 2.9; Prothrombin Time 31.6 Seconds (9.4-12.1)
[2017-05-10 05:58] LABS: Albumin 2.7 g/dL (3.5-5.7); Phosphorous 3.1 mg/dL (2.7-4.5); Potassium 4.1 mEq/L (3.5-5.1)
--- NOTE | 2017-05-10 09:02 | Internal Med Progress Note ---
Date of Encounter: 05/10/17 Time of Encounter: 09:00 - Assessment and plan (1) Ieqbu-pt-lixeikw kidney injury Status: Acute Assessment and plan: Patient has chronic kidney disease with baseline serum creatinine around 2.5. Presented with acute on chronic renal failure with creatinine of 3.5, due to GI losses from diarrhea. Improving with IV hydration. Nephrology has been consulted. Qualifiers: Acute renal failure type: unspecified Chronic kidney disease stage: stage 3 (moderate) Qualified Code(s): N17.9 - Acute kidney failure, unspecified; N18.3 - Chronic kidney disease, stage 3 (moderate); N18.3 - Chronic kidney disease, stage 3 (moderate) (2) Diarrhea Status: Resolved Assessment and plan: Stool C. difficile toxin could not be sent as patient's diarrhea seems to be improving now. Continue supportive care, IV hydration. Monitor and replete electrolytes. Qualifiers: Diarrhea type: unspecified type Qualified Code(s): R19.7 - Diarrhea, unspecified (3) Chronic a-fib Status: Chronic Assessment and plan: Currently rate controlled. Continue telemetry monitoring and beta lupe. Continue long-term anticoagulation with Coumadin. (4) AICD (automatic cardioverter/defibrillator) present Status: Chronic (5) HLD (hyperlipidemia) Status: Chronic Qualifiers: Hyperlipidemia type: unspecified Qualified Code(s): E78.5 - Hyperlipidemia , unspecified (6) CHF (congestive heart failure) Status: Chronic Qualifiers: Congestive heart failure type: unspecified Congestive heart failure chronicity: chronic Qualified Code(s): I50.9 - Heart failure, unspecified - Subjective Interval history: Feels better; improving diarrhea, now has formed stools; no chest pain, dyspnea , palpitations; does have leg swelling at baseline; Recently discharged from here after treatment for acute CHF; - Constitutional Vitals: Temp Pulse Resp BP Pulse Ox 97.6 F 57 16 134/70 92 05/10/17 05:12 05/10/17 05:12 05/10/17 05:12 05/10/17 05:12 05/10/17 05:12 General appearance: Present: cooperative, A&O X 3, no acute distress, answers questions appropriately - Respiratory Respiratory exam: Present: CTAB. Absent: accessory muscle use, rales, rhonchi, wheezes - Cardiovascular Cardiovascular exam: Present: RRR, +S1, +S2. Absent: diastolic murmur, gallop, rubs, systolic murmur - GI/Abdominal GI/Abdominal exam: Present: normal bowel sounds, soft (obese), no peritoneal signs. Absent: distended, tenderness - Extremities Exam Extremities exam: Present: full ROM, pedal edema (1+ pitting pedal edema B/L), warm, radial pulses palpable and symmetrical. Absent: calf tenderness, cyanotic - Neurological Exam Neurological exam: Present: CN II-XII intact, oriented X3, no focal deficits. Absent: pronater drift, facial droop, speech deficit Internal Medicine: Result - Labs CBC & Chem 7: 05/10/17 05:03 05/11/17 06:46 Labs: Short CBC 05/10/17 Range/Units 05:03 WBC 5.3 (4.3-11.1) K/mcL Hgb 11.3 L (12.9-16.9) g/dL Hct 34.9 L (37.5-50.1) % Plt Count 150 (140-400) K/mcL Neutrophils # 3.7 (1.6-8.9) K/mcL BMP 05/10/17 05:03 Sodium 134 L Potassium 4.1 Chloride 107 Carbon Dioxide 22 L BUN 47 H Creatinine 2.72 H Glucose 67 L Calcium 8.0 L Liver Function 05/10/17 Range/Units 05:03 Albumin 2.7 L (3.5-5.7) g/dL - ABG Interpretation ABG results: PT/INR, D-dimer PT 31.6 Seconds (9.4-12.1) H 05/10/17 05:03 Consult Discharge Plan - Plan Instructions: Heart Failure (DC), Low Sodium Diet (DC) Additional Instructions: F/up with PCP in 1-2 weeks F/up with Nephrology as scheduled Referrals: Shefali Orellana CNP [Primary Care Provider] - (web request)
[2017-05-10] MEDS: Metoprolol XL (24 HR) Succ 50 MG TAB.ER.24H PO SCH (09:45)
[2017-05-10] MEDS: Cholecalciferol (D-3) 1,000 UNIT TABLET PO SCH (09:45)
[2017-05-10] MEDS: Folic Acid 1 MG TABLET PO SCH (09:45)
[2017-05-10] MEDS: *HR* Amiodarone 200 MG TABLET PO SCH (09:45)
--- NOTE | 2017-05-10 10:36 | Nephrology Progress Note ---
Date of Encounter: 05/10/17 Time of Encounter: 10:33 - Assessment and Plan (1) Acute kidney injury Current Visit: Yes Status: Acute LA on CKD stage IIIB/4. LA is much improved today, patient is close to his baseline renal function Likely related to hypovolemia in the setting of diarrhea, poor by mouth intake, Lasix use. Then he is much improved today after IV hydration. Recommend finishing the liter that was ordered overnight in holding diuretics for today. Patient can likely restart his home diuretics tomorrow as clinical improvement allows. Continue to follow renal protective strategy by avoiding nephrotoxins and dose medications based on GFR. (2) Chronic kidney disease Current Visit: No Status: Acute As above. Qualifiers: Chronic kidney disease stage: stage 4 (severe) Qualified Code(s): N18.4 - Chronic kidney disease, stage 4 (severe) (3) Diarrhea Current Visit: Yes Status: Resolved Results. Further management per primary team. Qualifiers: Diarrhea type: unspecified type Qualified Code(s): R19.7 - Diarrhea, unspecified (4) Chronic a-fib Current Visit: Yes Status: Chronic Subjective Principal diagnosis: Diarrhea Interval history: Patient seen and examined at bedside. Patient states that he feels pretty good today. He is no complaints at this time. He denies shortness of breath, chest pain, nausea, vomiting, diarrhea. Objective - Vital Signs Vital signs: Vital Signs Temp Pulse Resp BP Pulse Ox 05/10/17 07:30 97.4 F L 56 17 123/58 93 05/10/17 05:12 97.6 F 57 16 134/70 92 05/10/17 00:48 98.2 F 55 16 131/66 95 Intake and Output 05/09/17 05/10/17 05/10/17 23:59 07:59 15:59 Intake Total 360 / 360 Output Total 225 / 225 500 / 500 Balance -225 / 375 -140 / -140 Intake: Oral 360 / 360 Output: Urine 225 / 225 500 / 500 Other: Meal Breakfast Percent of Meal Consumed 100% Weight 92.6 kg Patient Weight 05/10/17 23:59 Weight 92.6 kg - General Appearance General appearance: Present: well-developed, well-nourished, appears started age EENT: Present: ATNC, mucous membranes moist Neck: Present: supple Respiratory: Present: clear Cardiology: Present: no murmurs, no rub, no gallops, edema (On post lower extremity bilaterally, improved from yesterday), regular rate, irregular rhythm Gastrointestinal: Present: normoactive bowel sounds, no tenderness, no guarding Integumentary: Present: no rash, warm and dry Neurologic: Present: no focal deficit, alert and oriented x3 - Lab 05/10/17 05:03 05/10/17 05:03 Most recent lab results Calcium 8.0 mg/dL (8.6-10.3) L 05/10/17 05:03 Phosphorus 3.1 mg/dL (2.7-4.5) 05/10/17 05:03 Consult Discharge Plan - Plan Referrals: Shefali Orellana WEEDER [Primary Care Provider] -
[2017-05-10] MEDS ORDERED: Warfarin perPT PO PRN (18:00)
[2017-05-10 21:04] LABS: Sodium, Urine 33.2 mEq/L
[2017-05-11 07:26] LABS: INR 2.7; Prothrombin Time 29.6 Seconds (9.4-12.1)
[2017-05-11 07:27] VITALS: BP 138/74
[2017-05-11 07:39] LABS: Albumin 2.8 g/dL (3.5-5.7); Calcium 8.1 mg/dL (8.6-10.3); Magnesium 1.9 mg/dL (1.6-2.6); Potassium 4.4 mEq/L (3.5-5.1)
[2017-05-11] MEDS: Folic Acid 1 MG TABLET PO SCH (10:19)
[2017-05-11] MEDS: Metoprolol XL (24 HR) Succ 50 MG TAB.ER.24H PO SCH (10:19)
[2017-05-11] MEDS: *HR* Amiodarone 200 MG TABLET PO SCH (10:19)
[2017-05-11] MEDS: Cholecalciferol (D-3) 1,000 UNIT TABLET PO SCH (10:19)
--- NOTE | 2017-05-11 10:42 | Discharge Summary ---
Date of Encounter: 05/11/17 Time of Encounter: 10:39 - Discharge Diagnosis (1) Ctmtg-vn-jzuxzjg kidney injury Priority: Primary Status: Acute Qualifiers: Acute renal failure type: unspecified Chronic kidney disease stage: stage 3 (moderate) Qualified Code(s): N17.9 - Acute kidney failure, unspecified; N18.3 - Chronic kidney disease, stage 3 (moderate); N18.3 - Chronic kidney disease, stage 3 (moderate) (2) Diarrhea Priority: Primary Status: Resolved Qualifiers: Diarrhea type: unspecified type Qualified Code(s): R19.7 - Diarrhea, unspecified (3) Chronic a-fib Priority: Secondary Status: Chronic (4) AICD (automatic cardioverter/defibrillator) present Priority: Secondary Status: Chronic (5) HLD (hyperlipidemia) Priority: Secondary Status: Chronic Qualifiers: Hyperlipidemia type: unspecified Qualified Code(s): E78.5 - Hyperlipidemia , unspecified (6) CHF (congestive heart failure) Priority: Secondary Status: Chronic Qualifiers: Congestive heart failure type: unspecified Congestive heart failure chronicity: chronic Qualified Code(s): I50.9 - Heart failure, unspecified - Discharge Medications Home Medications: Amiodarone [Cordarone] 200 mg PO QAM 01/06/15 [History] Metoprolol XL (24 HR) Succ [Toprol Xl] 50 mg PO QAM 01/06/15 [History] Mexiletine [Mexitil] 200 mg PO Q8H 01/06/15 [History] Pravastatin Sodium 10 mg PO QPM 01/06/15 [History] Cholecalciferol (D-3) [Vitamin D] 2,000 unit PO DAILY 06/04/16 [History] Folic Acid 1 mg PO DAILY #30 tablet 09/10/16 [Rx] Denosumab [Prolia (For Outpatient Infusion)] 60 mg SQ [id number] 04/17/17 [History ] Testosterone [Androgel] 2 appl TD DAILY 04/17/17 [History] Warfarin [Coumadin] 1.5 mg PO TUTHSA 04/17/17 [History] Warfarin [Coumadin] 3 mg PO SUMOWEFR 04/17/17 [History] Furosemide [Lasix] 20 mg PO DAILY #30 tablet 04/20/17 [Rx] Lisinopril 2.5 mg PO DAILY 05/09/17 [History] Allergies/Adverse Reactions: 3 Allergy/AdvReac Type Severity Reaction Status Date / Time No Known Allergies Allergy Verified 05/09/17 13:18 Date of admission: 05/09/17 19:51 Primary care physician: Shefali Orellana CNP Discharging clinician: Ngoc Hernández Anticipated date of discharge: 05/11/17 - Patient Status Disposition: Home Health Service Condition: Fair Overall status at discharge: patient is progressing back to baseline - Discharge Instructions Instructions: Heart Failure (DC), Low Sodium Diet (DC) Follow Up With: Shefali Orellana CNP [Primary Care Provider] - (web request) Additional Instructions: F/up with PCP in 1-2 weeks F/up with Nephrology as scheduled - Diet and Activity Activity: as per physical therapy Diet: low fat, low cholesterol, low salt diet, other (renal diet) Hospital course: Mr. Auguste is a 81 year old male with the above medical problems, was admitted with diarrhea and dehydration. Patient was recently discharged from our hospital after being treated for acute congestive heart failure. He reports compliance to Lasix but developed significant diarrhea for the last few days. He was noted to have acute on chronic renal failure and was started on gentle IV hydration. Nephrology was consulted and agreed with this management. Serum creatinine gradually improved and is currently at baseline. Patient is asymptomatic with resolved diarrhea, which was probably a viral gastroenteritis , and is medically stable for discharge with outpatient nephrology followup. - Time Spent with Patient Total time spent providing and/or coordinating discharge services: Greater than 30 minutes (40 min) - Constitutional Vitals: Temp Pulse Resp BP Pulse Ox 98 F 59 15 138/74 94 05/11/17 07:26 05/11/17 07:26 05/11/17 07:26 05/11/17 07:26 05/11/17 07:26 General appearance: Present: cooperative, A&O X 3, no acute distress, answers questions appropriately - Cardiovascular Cardiovascular exam: Present: irregular rhythm, +S1, +S2. Absent: diastolic murmur, gallop, rubs, systolic murmur
--- NOTE | 2017-05-11 10:49 | Physician Discharge Referral ---
Home Health/Hosp Referral Info Transfer to: Home Health Attending Provider: Ngoc Hernández Provider in Charge Post Discharge: PCP - Diagnosis (1) Plwnw-cv-gsparbw kidney injury Priority: Primary Status: Acute (2) Diarrhea Priority: Primary Status: Resolved (3) Chronic a-fib Priority: Secondary Status: Chronic (4) AICD (automatic cardioverter/defibrillator) present Priority: Secondary Status: Chronic (5) HLD (hyperlipidemia) Priority: Secondary Status: Chronic (6) CHF (congestive heart failure) Priority: Secondary Status: Chronic - Respiratory Orders Smoking Cessation: Smoking cessation has been advised. For more information, call the [place] Tobacco Quit Line at 0-887-DHEB-NOW. - Diet/Nutrition Diet/Nutrition Orders: Renal, Cardiac - Activity Activity Orders: Ambulate - Services Needed Following services are medically necessary services: Nursing, Physical Therapy, Occupational Therapy - Transfer Medications Home Medications: Amiodarone [Cordarone] 200 mg PO QAM 01/06/15 [History] Metoprolol XL (24 HR) Succ [Toprol Xl] 50 mg PO QAM 01/06/15 [History] Mexiletine [Mexitil] 200 mg PO Q8H 01/06/15 [History] Pravastatin Sodium 10 mg PO QPM 01/06/15 [History] Cholecalciferol (D-3) [Vitamin D] 2,000 unit PO DAILY 06/04/16 [History] Folic Acid 1 mg PO DAILY #30 tablet 09/10/16 [Rx] Denosumab [Prolia (For Outpatient Infusion)] 60 mg SQ [id number] 04/17/17 [History ] Testosterone [Androgel] 2 appl TD DAILY 04/17/17 [History] Warfarin [Coumadin] 1.5 mg PO TUTHSA 04/17/17 [History] Warfarin [Coumadin] 3 mg PO SUMOWEFR 04/17/17 [History] Furosemide [Lasix] 20 mg PO DAILY #30 tablet 04/20/17 [Rx] Lisinopril 2.5 mg PO DAILY 05/09/17 [History] Allergies/Adverse Reactions: 3 Allergy/AdvReac Type Severity Reaction Status Date / Time No Known Allergies Allergy Verified 05/09/17 13:18 Certification: Further, I certify that my clinical findings support that this patient is homebound (i.e. absences from home require considerable and taxing effort and are for medical reasons or jew services or infrequently or short duration when for other reasons) because: Homebound Reason: Patient requires assistance of a person or device to safely leave home, Leaving home requires considerable and taxing effort due to condition Attestation: My signature below is to certify that this patient is under my care and that I, or nurse practitioner, or a physician's addictions counselor assistant working with me, has a face-to -face encounter with this patient.
[2017-05-11] MEDS ORDERED: *HR* Warfarin 3 MG TABLET PO ONE (18:00)
== END 2017-05-11 14:00 | disposition home health service (06) | DRG 392 ==
LOC: 2ANU 10:38 → EMEROO 10:38 → 2ANU 16:27
PROVIDERS: ADMIT Internal Medicine; ATTEND Internal Medicine

== ENCOUNTER 2017-05-21 16:35 | Inpatient (IN) ==
[2017-05-21 21:41] LABS: Basophils % 0.2 %; Eosinophils # 0.1 K/mcL (0.0-0.6); Eosinophils % 0.9 %; Hematocrit 40.6 % (37.5-50.1); Hemoglobin 12.9 g/dL (12.9-16.9); Immature Granulocytes % 0.4 % (0-4); Lymphocytes # 0.7 K/mcL (0.6-4.6); Lymphocytes % 8.3 %; Mean Corpuscular HGB Conc 31.8 g/dL (31.6-35.5); Mean Corpuscular Hemoglobin 29.4 pg (28.0-33.3); Mean Corpuscular Volume 92.5 fL (83.0-100.0); Mean Platelet Volume 11.5 fL (9.4-12.4); Monocytes # 0.9 K/mcL (0.0-1.3); Monocytes % 10.4 %; Neutrophils # 6.5 K/mcL (1.6-8.9); Nucleated Red Blood Cells 0.5 /100 WBC (0); Platelet Count 161 K/mcL (140-400); Red Blood Count 4.39 M/mcL (4.19-5.50); Red Cell Distribution Width 15.2 % (11.5-14.5); Segmented Neutrophils % 79.8 %
--- NOTE | 2017-05-21 22:15 | Emergency Department Note ---
Disposition Clinical Impression: CHF exacerbation Qualifiers: Congestive heart failure type: unspecified Qualified Code(s): I50.9 - Heart failure, unspecified Disposition: Admitted As Inpatient Condition: Good Referrals: Shefali Orellana CNP [Primary Care Provider] - Forms: ED Satisfaction Letter Time of Disposition: 23:02 SOB HPI - General Chief Complaint: ED Shortness of Breath/Dyspnea Stated Complaint: "CHF,fluid build up' Time Seen by Provider: 05/21/17 21:09 Source: patient Mode of arrival: ambulatory Limitations: no limitations Nursing Notes Reviewed: Yes Vital Signs Reviewed: Yes - History of Present Illness Patient presents for evaluation of shortness of breath. Patient states that he has had increased fluid of the lower extremities with pitting edema. The patient's states that he has had multiple bouts with CHF in the past. He continues to retain fluid and does not understand why. The patient states that he has not been able to get around. Patient noticed last night when his CPAP turned off that he could not breathe at all. CPAP turned off secondary to his power going out. Patient has oxygen at home but has not been able to keep his oxygen level up despite 4 L of nasal cannula. Patient does not appear in acute distress. Is able to hold a full conversation. But it we have been unable to get his pulse ox above 90% with nasal cannula. The patient be placed on BiPAP and reevaluated patent. The patient's previous ejection fraction is 40-45%. Patient has no chest pain at this time. - Related Data Home Medications Medication Instructions Recorded Confirmed Amiodarone [Cordarone] 200 mg PO QAM 01/06/15 05/21/17 Metoprolol XL (24 HR) Succ [Toprol 50 mg PO QAM 01/06/15 05/21/17 Xl] Mexiletine [Mexitil] 200 mg PO Q8H 01/06/15 05/21/17 Pravastatin Sodium 10 mg PO QPM 01/06/15 05/21/17 Cholecalciferol (D-3) [Vitamin D] 2,000 unit PO DAILY 06/04/16 05/21/17 Denosumab [Prolia (For Outpatient 60 mg SQ [id number] 04/17/17 05/21/17 Infusion)] Testosterone [Androgel] 2 appl TD DAILY 04/17/17 05/21/17 Warfarin [Coumadin] 1.5 mg PO TUSA 04/17/17 05/21/17 Warfarin [Coumadin] 3 mg PO SUMOWETHFR 04/17/17 05/21/17 Lisinopril 2.5 mg PO DAILY 05/09/17 05/21/17 Furosemide [Lasix] 40 mg PO DAILY 05/21/17 05/21/17 Previous Rx's Medication Instructions Recorded Folic Acid 1 mg PO DAILY #30 tablet 05/13/17 Allergies Allergy/AdvReac Type Severity Reaction Status Date / Time No Known Allergies Allergy Verified 05/09/17 13:18 Review of Systems: CONSTITUTIONAL: No weight loss, fever, chills, weakness or fatigue. HEENT: Eyes: No visual changes. Ears, Nose, Throat: No hearing loss, difficulty talking or unable to swallow. SKIN: No rash or itching. CARDIOVASCULAR: significant pitting edema. No chest pain, chest pressure or chest discomfort. No palpitations or edema. RESPIRATORY: shortness of breath. GASTROINTESTINAL: No anorexia, nausea, vomiting or diarrhea. No abdominal pain or blood. GENITOURINARY: No burning on urination or hematuria. NEUROLOGICAL: No headache, dizziness, syncope, paralysis, ataxia, numbness or tingling in the extremities. No change in bowel or bladder control. MUSCULOSKELETAL: No muscle pain, back pain, joint pain or stiffness. Past Medical History - Past Medical History Medical history: Reports: atrial fibrillation, cancer, CHF, coronary artery disease, hyperlipidemia, hypertension, renal disease, other Surgical history: Reports: appendectomy, cataract, colectomy, prostatectomy, other, AICD Psychiatric history: Reports: no psych history - Social History Smoking Status: Former smoker Smokeless Tobacco Status: No Alcohol use: Reports: rarely Drug use: Reports: none Physical Exam General: Well appearing, nontoxic, no acute distress Head: Normocephalic Atraumatic Eyes: PERRL, EOMI ENT: Airway patent, no stridor Neck: supple, no meningismus Chest: Significant Rales bilaterally Cardiac: Regular rate and rhythm, no murmurs, rubs or gallops Abdomen: soft, nontender, nondistended; no guarding, rebound, or tenderness to percussion Extremities: +2 pitting edema bilaterally up past the knee. Skin: No rash, normal skin tone Neuro: Alert and Oriented to person, place, and time; No focal deficit, CN 2-12 symmetric and intact - General General appearance: alert, in no apparent distress Course - Reevaluation(s) Reevaluation #1: Patient significantly improved on BiPAP. Patient be admitted to the hospital service. - Consultations Consultation #1: Discussed with Dr. Last. Patient accepted to Hospital service Vital Signs Temperature 97.4 F L 05/21/17 17:00 Pulse Rate 50 05/21/17 17:00 Respiratory Rate 22 05/21/17 17:00 Blood Pressure 137/75 05/21/17 17:00 O2 Sat by Pulse Oximetry 97 05/21/17 17:00 Temperature 97.4 F L 05/21/17 17:00 Pulse Rate 49 05/21/17 22:29 Respiratory Rate 20 05/21/17 22:29 Blood Pressure 130/69 05/21/17 22:29 O2 Sat by Pulse Oximetry 97 05/21/17 22:29 Oxygen Delivery Oxygen Delivery Bipap Shortness of Breath/Dyspnea - Lab Data Result diagrams: 05/21/17 21:32 Lab Results 05/21/17 05/21/17 05/21/17 Range/Units 21:32 21:32 21:32 WBC 8.2 (4.3-11.1) K/mcL RBC 4.39 (4.19-5.50) M/mcL Hgb 12.9 (12.9-16.9) g/dL Hct 40.6 (37.5-50.1) % MCV 92.5 (83.0-100.0) fL MCH 29.4 (28.0-33.3) pg MCHC 31.8 (31.6-35.5) g/dL RDW 15.2 H (11.5-14.5) % Plt Count 161 (140-400) K/mcL MPV 11.5 (9.4-12.4) fL Immature Gran % 0.4 (0-4) % Seg Neutrophils % 79.8 % Lymphocytes % 8.3 % Monocytes % 10.4 % Eosinophils % 0.9 % Basophils % 0.2 % Neutrophils # 6.5 (1.6-8.9) K/mcL Lymphocytes # 0.7 (0.6-4.6) K/mcL Monocytes # 0.9 (0.0-1.3) K/mcL Eosinophils # 0.1 (0.0-0.6) K/mcL Basophils # 0.0 (0.0-0.2) K/mcL Nucleated RBCs/100 WBC 0.5 H (0) /100 WBC APTT (26.0-36.0) Seconds Lactic Acid 1.6 (0.5-2.2) mmol/L Troponin I 0.04 H* (< 0.04) ng/mL B-Natriuretic Peptide (Less than 100) pg/mL 05/21/17 05/21/17 Range/Units 21:32 21:33 WBC (4.3-11.1) K/mcL RBC (4.19-5.50) M/mcL Hgb (12.9-16.9) g/dL Hct (37.5-50.1) % MCV (83.0-100.0) fL MCH (28.0-33.3) pg MCHC (31.6-35.5) g/dL RDW (11.5-14.5) % Plt Count (140-400) K/mcL MPV (9.4-12.4) fL Immature Gran % (0-4) % Seg Neutrophils % % Lymphocytes % % Monocytes % % Eosinophils % % Basophils % % Neutrophils # (1.6-8.9) K/mcL Lymphocytes # (0.6-4.6) K/mcL Monocytes # (0.0-1.3) K/mcL Eosinophils # (0.0-0.6) K/mcL Basophils # (0.0-0.2) K/mcL Nucleated RBCs/100 WBC (0) /100 WBC APTT 41.8 H (26.0-36.0) Seconds Lactic Acid (0.5-2.2) mmol/L Troponin I (< 0.04) ng/mL B-Natriuretic Peptide 4173 H (Less than 100) pg/mL Attestation Statement - Attestation Attestation: I, Jose L Funes DO, examined this patient [id number] and my medical decision-making was reviewed with Arjun Dozier DO, Resident Physician. I agree with the documented findings, disposition and treatment plan as described except to the extent set forth below. Please see my progress notes for details. 81-year-old male presents emergency room for evaluation of shortness of breath. Patient was just discharged from the hospital for CHF exacerbation. Patient is provided with Lasix and medications all here and discharged home in good medical condition. The last 7-12 days patient is slightly or slowly started to have fluid accumulation in the extremities and his lungs again. Patient now has exertional and intermittently conversational dyspnea. Patient does have pitting edema in the lateral thighs. Patient denies any chest pain fevers chills nausea vomiting or diarrhea. Denies any headache or vision change. Main complaint is the B swelling and dyspnea. Patient is visibly orthopnea, lying flat. He has had diminished breath sounds bilaterally. He has pitting edema in lower extremities with irregular heart. He has no tenderness to the abdomen guarding or rigidity or peritoneal symptoms. Cranial nerves III through XII are grossly intact. Patient was also extremities with purpose and follows commands appropriately. Patient is alert and oriented and answering questions appropriately this time. Family says he is acting completely normal except is significant orthopnea and swelling. Chest x-ray is concerning for pulmonary congestion and edema. Patient's labs otherwise unremarkable except for elevated BNP. Troponin is stable. No signs of acute lactic acidosis. Patient will be admitted for CHF exacerbation and clinical management. Patient was placed on BiPAP. Emergency room for symptomatic control. Pulse ox stabilized. Patient has been persistently hypoxic prior to being provided the medications and BiPAP. Patient will be discussed with the hospitalist for admission. Family is at the bedside and they agree with the course of care. See detailed documentation of the physical exam, medical intervention, but making and disposition and the resident physician's note. no critical care was applied to this patient's treatment course. Patient had outpatient INR completed today is 3.2. Hospitalist contacted. They are happy to accept patient. BMP is pending at this time secondary to labyrinthine issue. Patient is breathing much easier at this time at the BiPAP in place. No other concerns or issues noted.
[2017-05-21] MEDS ORDERED: Furosemide 40 MG/4 ML VIAL IVP STA (22:48)
[2017-05-21 23:58] LABS: Calcium 8.5 mg/dL (8.6-10.3); Potassium 5.9 mEq/L (3.5-5.1)
[2017-05-22] MEDS ORDERED: Naloxone 0.4 MG/ML INJ IVP PRN (00:50)
[2017-05-22] MEDS ORDERED: Acetaminophen 325 MG TABLET PO PRN (00:50)
--- NOTE | 2017-05-22 01:46 | Internal Med History&Physical ---
Date of Encounter: 05/22/17 Time of Encounter: 01:30 Assessment and Plan (1) Acute exacerbation of CHF (congestive heart failure) Current visit: Yes Status: Acute Patient exhibits signs of acute congestive heart failure and pulmonary edema. BNP is significantly elevated above his baseline. Will treat with intravenous Lasix. Monitor input and output. Daily weights. Fluid restriction to 1.5 L per day. High risk for complications due to associated acute kidney injury. Qualifiers: Congestive heart failure type: combined Qualified Code(s): I50.43 - Acute on chronic combined systolic (congestive) and diastolic (congestive) heart failure (2) Acute kidney injury Current visit: Yes Status: Acute Patient's BUN and creatinine are elevated above his baseline. However he is also had in acute heart failure. We will treat with intravenous Lasix while following renal function closely. Does have high risk of further worsening of renal function. Consider nephrology consult in morning. (3) Chronic kidney disease Current visit: Yes Status: Acute With acute worsening of renal function. Monitor input and output closely. Qualifiers: Chronic kidney disease stage: stage 4 (severe) Qualified Code(s): N18.4 - Chronic kidney disease, stage 4 (severe) (4) Hyperkalemia Current visit: Yes Status: Acute Potassium 5.9 on presentation. Patient was given IV Lasix in the ER. Did have good response to it. We will recheck values in the morning. (5) PAF (paroxysmal atrial fibrillation) Current visit: Yes Status: Chronic Rate controlled. On Coumadin therapy. Will check PT/INR. (6) DVT prophylaxis Current visit: Yes Status: Acute On Coumadin. Internal Medicine - H&P: HPI Chief complaint: Shortness of breath Admitted From: Emergency Dept Plans for Post Hospital Care: Home History of present illness: Mr. Auguste is a 81 year old male patient with history of cardiomyopathy, congestive heart failure, obstructive sleep apnea, atrial fibrillation on chronic Coumadin therapy presented to the ER with complaints of shortness of breath. Patient has been having increasing shortness of breath along with lower extremity edema. He does use CPAP at home but last night could not use CPAP due to loss of power at his home. He does have oxygen at home but has been having continued difficulty breathing despite using this. No recent medication changes. He has been compliant with his usual medication regimen. He was also hospitalized here earlier this month with acute kidney injury. He received intravenous fluids during that time and his kidney function improved. He was discharged home on Lasix 20 mg by mouth daily. Past Med Surg Social Fam HX - Past Medical History Attestation: Yes The following information was validated with the patient. Source: patient, old records reviewed Medical history: atrial fibrillation, cancer, CHF, coronary artery disease, hyperlipidemia, hypertension, renal disease, other Psychiatric history: no psych history - Past Surgical History Surgical History: appendectomy, cataract, colectomy, prostatectomy, other, AICD , pacemaker - Social History Smoking Status: Former smoker Smokeless Tobacco Status: No Alcohol use: occasionally Drug use: none - Family History Mother Adopted: No Family Member Ethnicity: Non- Living Status: Hx Family Cardiac Disorders: Yes Hx Family GI Disorders: Yes (CRC resectable) Brother Hx Family Cancer: Yes (esophageal cancer, other brother had liver cancer) Father Adopted: No Family Member Ethnicity: Non- Living Status: Hx Family Cardiac Disorders: Yes Internal Medicine - H&P: Meds Amiodarone [Cordarone] 200 mg PO QAM 01/06/15 [History] Metoprolol XL (24 HR) Succ [Toprol Xl] 50 mg PO QAM 01/06/15 [History] Mexiletine [Mexitil] 200 mg PO Q8H 01/06/15 [History] Pravastatin Sodium 10 mg PO QPM 01/06/15 [History] Cholecalciferol (D-3) [Vitamin D] 2,000 unit PO DAILY 06/04/16 [History] Denosumab [Prolia (For Outpatient Infusion)] 60 mg SQ [id number] 04/17/17 [History ] Testosterone [Androgel] 2 appl TD DAILY 04/17/17 [History] Warfarin [Coumadin] 1.5 mg PO TUSA 04/17/17 [History] Warfarin [Coumadin] 3 mg PO SUMOWETHFR 04/17/17 [History] Lisinopril 2.5 mg PO DAILY 05/09/17 [History] Folic Acid 1 mg PO DAILY #30 tablet 05/13/17 [Rx] Furosemide [Lasix] 40 mg PO DAILY 05/21/17 [History] 3 Allergy/AdvReac Type Severity Reaction Status Date / Time No Known Allergies Allergy Verified 05/09/17 13:18 All Systems PM: A 10-system review of systems was performed and is negative for pertinent findings except as documented above in the HPI. - Constitutional Constitutional: no chills, no fever(s), no night sweats - EENT Eyes: no change in vision, no discharge, no pain, no photophobia Ears: no ear discharge, no ear pain, no tinnitus Nose, mouth and throat: no dysphagia, no nasal discharge, no neck pain, no sore throat - Cardiovascular Cardiovascular ROS IM: dyspnea, edema, no chest pain, no diaphoresis, no lightheadedness, no palpitations, no syncope - Respiratory Respiratory: no cough, no dyspnea, no wheezing, no excessive phlegm production - Gastrointestinal Gastrointestinal: no abdominal pain, no diarrhea, no hematemesis, no hematochezia, no melena, no nausea, no vomiting - Musculoskeletal Musculoskeletal ROS IM: no numbness, no tingling - Integumentary Integumentary IM: no rash, no unusual bruising - Neurological Neurological ROS: no confusion, no convulsions, no focal weakness, no numbness, no tingling, no tremor(s) - Constitutional Vitals: Temp Pulse Resp BP Pulse Ox 97.3 F L 49 18 125/62 96 05/22/17 01:18 05/22/17 01:18 05/22/17 01:18 05/22/17 01:18 05/22/17 01:18 General appearance: Present: cooperative, mild distress, A&O X 3, answers questions appropriately - Eye Eye exam: Present: EOMI, PERRL, conjuntiva pink, sclera anicteric - ENT Additional comments: BiPAP mask in place - Neck Neck exam general surgery: Present: supple, trachea midline. Absent: lymphadenopathy - Respiratory Respiratory exam: Present: CTAB. Absent: accessory muscle use, rales, rhonchi, wheezes - Cardiovascular Cardiovascular exam: Present: bradycardia, RRR, +S1, +S2. Absent: diastolic murmur, gallop, rubs, systolic murmur - Extremities Exam Extremities exam: Present: pedal edema (Bilateral pitting pedal edema), warm, radial pulses palpable and symmetrical. Absent: calf tenderness, cyanotic - Neurological Exam Neurological exam: Present: alert, oriented X3, no focal deficits. Absent: facial droop, speech deficit Internal Med - H&P Results - Labs CBC & Chem 7: 05/21/17 21:32 05/21/17 21:32 - Impressions Impressions Chest X-Ray 05/21/17 19:29 IMPRESSION: Findings most compatible with pulmonary edema. Correlate with any clinical evidence of superimposed pneumonia. D/ / Adria Peraza MD / Adria Peraza MD Interpreting Provider: Adria Peraza MD
[2017-05-22 02:06] LABS: Basophils % 0.5 %; Eosinophils # 0.1 K/mcL (0.0-0.6); Hematocrit 39.3 % (37.5-50.1); Hemoglobin 12.4 g/dL (12.9-16.9); Immature Granulocytes % 0.4 % (0-4); Lymphocytes # 0.7 K/mcL (0.6-4.6); Lymphocytes % 8.4 %; Mean Corpuscular HGB Conc 31.6 g/dL (31.6-35.5); Mean Corpuscular Hemoglobin 28.9 pg (28.0-33.3); Mean Corpuscular Volume 91.6 fL (83.0-100.0); Mean Platelet Volume 11.9 fL (9.4-12.4); Monocytes # 0.8 K/mcL (0.0-1.3); Monocytes % 10.5 %; Neutrophils # 6.1 K/mcL (1.6-8.9); Nucleated Red Blood Cells 0.3 /100 WBC (0); Platelet Count 147 K/mcL (140-400); Red Blood Count 4.29 M/mcL (4.19-5.50); Red Cell Distribution Width 15.1 % (11.5-14.5); Segmented Neutrophils % 79.2 %
[2017-05-22 02:11] LABS: INR 3.3; Prothrombin Time 36.5 Seconds (9.4-12.1)
[2017-05-22 04:06] LABS: Calcium 8.4 mg/dL (8.6-10.3); Potassium 4.9 mEq/L (3.5-5.1)
[2017-05-22] MEDS ORDERED: *HR* Heparin 5,000 UNIT/ML VIAL SQ SCH (06:00)
--- NOTE | 2017-05-22 08:19 | Electrocardiograph Report ---
[address] [place], [place] [address] Test Date: 2017-05-21 Pat Name: Esau Auguste Department: 104 Room: 2A47 Gender: M Operations Research Scientist: SABRINA : 1935 Requested By: Jefry Valdez Order Number: [id number] Reading MD: Katina Dumont Measurements Intervals [place] Rate: 49 P: -66 KS: 321 QRS: -29 QRSD: 163 T: 55 QT: 539 QTc: 511 Interpretive Statements ELECTRONIC ATRIAL PACEMAKER LEFT BUNDLE BRANCH BLOCK Electronically Signed On 05-22-2017 8:17:57 EST by Katina Dumont
[2017-05-22] MEDS: Cholecalciferol (D-3) 1,000 UNIT TABLET PO SCH (09:49)
[2017-05-22] MEDS: *HR* Amiodarone 200 MG TABLET PO SCH (09:49)
[2017-05-22] MEDS: Metoprolol XL (24 HR) Succ 50 MG TAB.ER.24H PO SCH (09:49)
[2017-05-22] MEDS: Furosemide 40 MG/4 ML VIAL IVP SCH ×2 (09:49→17:39)
[2017-05-22] MEDS: Folic Acid 1 MG TABLET PO SCH (09:49)
[2017-05-22] MEDS ORDERED: Warfarin perPT PO PRN (18:00)
--- NOTE | 2017-05-22 18:19 | Nephrology Consult Note ---
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 I suspect his decreased hemodynamics in the setting of Acute Decompensated Heart Failure (ADHF) has contributed to his LA. He will diuresed and I counseled him that in hopes of lessening the diuretic impact on his renal function (which may worsen), I will add Albumin 25gm IV BID to be given with lasix. The loop diuretics will need to be titrated daily as based upon SCr, UOP, daily weights and BP/HR. He should have a fluid restriction and no more than 2L per day but d/t acuity of his current CHF exacerbation, I would recommend <1.5L per day. Will have to stop the low dose ACEi d/t the LA. Meanwhile continue to follow a renal protective strategy. He may require dialysis during this admission, if he does not improve. I counseled him for >50% of the 25 min encounter. I also spoke with the floor RN and the hospitalist today regarding my recommendations. Thank you for consulting the [facility] service. Will follow with you. (2) Chronic kidney disease Current Visit: Yes Status: Acute Baselinie CKD stage IIIb-IV Qualifiers: Chronic kidney disease stage: stage 4 (severe) Qualified Code(s): N18.4 - Chronic kidney disease, stage 4 (severe) (3) Acute exacerbation of CHF (congestive heart failure) Current Visit: Yes Status: Acute See above. Qualifiers: Congestive heart failure type: combined Qualified Code(s): I50.43 - Acute on chronic combined systolic (congestive) and diastolic (congestive) heart failure (4) Hyperkalemia Current Visit: Yes Status: Acute Improving. Low K+ diet and the diuresis should help improve the serum K+ levels. History of Present Illness - Reason for Consult Consult date: 05/22/17 Acute Kidney Injury, Chronic Kidney Disease Requesting physician: Ngoc Hernández - Chief Complaint LA on CKD with ADHF - History of Present Illness Esau Auguste is a very pleasant 81 y/o WM with a pmh of chronic systolic CHF, CKD, frequent AKIs and et al who presents for readmission for CHF. He was seen recently in the clinic for hospital follow-up by me, at which point I increased his loop diuretics, but since then his dyspena continued to worsen and though he said his UOP had improved, he ultimately wound up back in the ER and found to have a doubling of his BNP from roughly 2000 to 4000+. He was seen and examined on the 2A unit wearing BiPAP, and his was present at the bedside. He did not affirm active CP, or N/V/D or F/C or cough or URI related symptoms. He does not taking NSAIDs. Past Med Surg Social Fam HX - Past Medical History Medical history: atrial fibrillation, cancer, CHF, coronary artery disease, hyperlipidemia, hypertension, renal disease, other Psychiatric history: no psych history - Past Surgical History Surgical History: appendectomy, cataract, colectomy, prostatectomy, other, AICD , pacemaker - Social History Smoking Status: Former smoker Smokeless Tobacco Status: No Alcohol use: occasionally Drug use: none - Family History Mother Adopted: No Family Member Ethnicity: Non- Living Status: Hx Family Cardiac Disorders: Yes Hx Family GI Disorders: Yes (CRC resectable) Brother Hx Family Cancer: Yes (esophageal cancer, other brother had liver cancer) Father Adopted: No Family Member Ethnicity: Non- Living Status: Hx Family Cardiac Disorders: Yes Medications and Allergies Amiodarone [Cordarone] 200 mg PO QAM 01/06/15 [History] Metoprolol XL (24 HR) Succ [Toprol Xl] 50 mg PO QAM 01/06/15 [History] Mexiletine [Mexitil] 200 mg PO Q8H 01/06/15 [History] Pravastatin Sodium 10 mg PO QPM 01/06/15 [History] Cholecalciferol (D-3) [Vitamin D] 2,000 unit PO DAILY 06/04/16 [History] Denosumab [Prolia (For Outpatient Infusion)] 60 mg SQ [id number] 04/17/17 [History ] Testosterone [Androgel] 2 appl TD DAILY 04/17/17 [History] Warfarin [Coumadin] 1.5 mg PO TUSA 04/17/17 [History] Warfarin [Coumadin] 3 mg PO SUMOWETHFR 04/17/17 [History] Lisinopril 2.5 mg PO DAILY 05/09/17 [History] Folic Acid 1 mg PO DAILY #30 tablet 05/13/17 [Rx] Furosemide [Lasix] 40 mg PO DAILY 05/21/17 [History] 3 Allergy/AdvReac Type Severity Reaction Status Date / Time No Known Allergies Allergy Verified 05/09/17 13:18 Review of Systems All Systems: reviewed and no additional remarkable complaints except as stated Exam - Vital Signs Vital signs: Initial Vital Signs Temp Pulse Resp BP Pulse Ox 97.4 F L 50 22 137/75 97 05/21/17 17:00 05/21/17 17:00 05/21/17 17:00 05/21/17 17:00 05/21/17 17:00 Vital Signs - Last 8 Hours Temp Pulse Resp BP Pulse Ox 05/22/17 15:00 96.7 F L 52 16 113/63 98 05/22/17 11:00 97.9 F 50 16 125/68 98 05/22/17 10:57 24 98 Intake and Output 05/22/17 05/22/17 05/22/17 07:59 15:59 23:59 Intake Total 360 / 360 Output Total 1150 / 1150 1225 / 1225 Balance -1150 / -1150 -865 / -865 Intake: Oral 360 / 360 Output: Urine 1150 / 1150 1225 / 1225 Other: Meal Breakfast Percent of Meal Consumed 100% # Voids 2 - General Appearance General appearance: well-developed, well-nourished, moderate distress, frail EENT: ATNC, PERRL, mucous membranes moist Neck: supple Respiratory: rales Cardiology: edema (trace to 1+ ankle edema b/l, but no abd ascites or edema in his hands), regular rate, normal S1, normal S2 Gastrointestinal: normoactive bowel sounds, no tenderness, no guarding Integumentary: no rash, warm and dry Neurologic: no focal deficit, no asterixis, alert and oriented x3 Musculoskeletal: no deformities, no erythema, no cyanosis Psychiatric: mood/affect appropriate, cooperative Results - Lab Results 05/22/17 01:49 05/22/17 01:49 Most recent lab results Calcium 8.4 mg/dL (8.6-10.3) L 05/22/17 01:49 I reviewed Progress notes, labs, meds, vitals, imaging. Consult Discharge Plan - Plan Referrals: Shefali Orellana CNP [Primary Care Provider] - 05/31/17 9:00 am (Please follow up as schedule...)
[2017-05-22] MEDS: Albumin 25% 25gram/100mL 25 GM/100 ML IV.SOLN IVPB SCH (20:44)
[2017-05-23 05:20] LABS: INR 3.1; Prothrombin Time 34.7 Seconds (9.4-12.1)
[2017-05-23 05:29] LABS: Magnesium 1.9 mg/dL (1.6-2.6); Phosphorous 4.7 mg/dL (2.7-4.5)
[2017-05-23 05:30] LABS: Calcium 8.4 mg/dL (8.6-10.3); Potassium 4.3 mEq/L (3.5-5.1)
[2017-05-23] MEDS: Albumin 25% 25gram/100mL 25 GM/100 ML IV.SOLN IVPB SCH ×2 (06:06→17:36)
[2017-05-23] MEDS: *HR* Amiodarone 200 MG TABLET PO SCH (08:56)
[2017-05-23] MEDS: Furosemide 40 MG/4 ML VIAL IVP SCH ×2 (08:56→17:36)
[2017-05-23] MEDS: Metoprolol XL (24 HR) Succ 50 MG TAB.ER.24H PO SCH (08:56)
[2017-05-23] MEDS: Cholecalciferol (D-3) 1,000 UNIT TABLET PO SCH (08:56)
[2017-05-23] MEDS: Folic Acid 1 MG TABLET PO SCH (08:56)
[2017-05-23] MEDS ORDERED: *HR* Warfarin 3 MG TABLET PO ONE (18:00)
--- NOTE | 2017-05-23 18:11 | Nephrology Progress Note ---
Date of Encounter: 05/23/17 Time of Encounter: 10:30 - Assessment and Plan (1) Acute kidney injury Current Visit: Yes Status: Acute Nonoliguric LA on CKD with both improving SCr and a net-negative volume status from yesterday 05/22/17, which is reassuring. No need for AREA ATTENDANT at this time. I would recommend continuing the Albumin with the IV lasix since he is both tolerating the Lasix (in terms of improving renal function) and responding to it appropriately (in terms of the CHF mgt). Would cont to hold the Lisinopril. Renal diet Strict I/Os and daily weights Continue to follow a renal protective and supportive strategy My colleague Dr. Lemus will be on-call tomorrow. Thank you. (2) Chronic kidney disease Current Visit: Yes Status: Acute Qualifiers: Chronic kidney disease stage: stage 4 (severe) Qualified Code(s): N18.4 - Chronic kidney disease, stage 4 (severe) (3) Acute exacerbation of CHF (congestive heart failure) Current Visit: Yes Status: Acute Qualifiers: Congestive heart failure type: combined Qualified Code(s): I50.43 - Acute on chronic combined systolic (congestive) and diastolic (congestive) heart failure (4) Hyperkalemia Current Visit: Yes Status: Acute Improved Subjective Principal diagnosis: CHF Interval history: The Pt was s/e earlier today. His and daughter were at the bedside. He reported that he made a good UOP yesterday and feels that his breathing may be improving while on BiPAP. I answered all his daughter's questions. Objective - Vital Signs Vital signs: Vital Signs Temp Pulse Resp BP Pulse Ox 05/23/17 17:22 97.6 F 66 16 133/61 93 05/23/17 17:17 54 15 117/65 95 05/23/17 17:15 66 16 133/61 93 05/23/17 15:27 23 98 05/23/17 12:07 96.9 F L 54 15 117/65 95 05/23/17 11:30 97.8 F 58 17 117/56 96 05/23/17 09:06 96 05/23/17 08:02 97.4 F L 54 17 125/66 96 05/23/17 07:30 97.4 F L 54 20 125/66 96 01/24/18 23:16 98.8 F 56 18 118/71 96 05/22/17 19:30 99.1 F 55 18 124/68 96 Intake and Output 05/23/17 05/23/17 05/23/17 07:59 15:59 23:59 Intake Total 200 / 200 240 / 240 Output Total 1600 / 1600 425 / 425 Balance 200 / 200 -1360 / -1360 -425 / -425 Intake: IV Fluids 200 / 200 Flexbumin 25 gm In 100 ml @ 60 200 / 200 mls/hr IVPB Q12HR [facility] Rx#: [id number] Oral 240 / 240 Output: Urine 1600 / 1600 425 / 425 Other: Meal Dinner Percent of Meal Consumed 100% Weight 95.2 kg Patient Weight 05/23/17 23:59 Weight 95.2 kg - General Appearance General appearance: Present: well-developed, well-nourished, appears started age , frail EENT: Present: ATNC, PERRL, mucous membranes moist Neck: Present: supple Respiratory: Present: course breath sounds Cardiology: Present: edema (1+ pitting edema up this lower thighs bilaterally), regular rate, regular rhythm, normal S1, normal S2 Gastrointestinal: Present: normoactive bowel sounds, no tenderness, no guarding Integumentary: Present: no rash, warm and dry Neurologic: Present: no focal deficit, no asterixis, alert and oriented x3 Musculoskeletal: Present: no deformities, no erythema, no cyanosis Psychiatric: Present: mood/affect appropriate, cooperative - Lab 05/22/17 01:49 05/23/17 04:31 Most recent lab results Calcium 8.4 mg/dL (8.6-10.3) L 05/23/17 04:31 Phosphorus 4.7 mg/dL (2.7-4.5) H 05/23/17 04:31 Magnesium 1.9 mg/dL (1.6-2.6) 05/23/17 04:31 Consult Discharge Plan - Plan Referrals: Shefali Orellana CNP [Primary Care Provider] - 05/31/17 9:00 am (Please follow up as schedule...)
--- NOTE | 2017-05-23 18:39 | Internal Med Progress Note ---
Date of Encounter: 05/23/17 Time of Encounter: 17:00 - Assessment and plan (1) CHF (congestive heart failure) Current Visit: Yes Status: Acute Assessment and plan: Echo from 03/2017 shows LVEF 40-45%. Mild concentric left ventricular hypertrophy. Mild left ventricular diastolic dysfunction. Severely dilated left and right atrium. Mild aortic regurgitation. Mild-moderate mitral regurgitation. Patient admitted with acute on chronic respiratory failure, pedal edema, elevated BNP; continue IV Lasix, fluid restriction, urine output monitoring; continue beta lupe; hold ACEI for now; Code status and plan of care d/w patient along with his and daughter at bedside; wishes to remain Full Code; discussed about fluid restriction and the difficulty in achieving euvolemic status due to CKD and CHF; Qualifiers: Congestive heart failure type: unspecified Congestive heart failure chronicity: chronic Qualified Code(s): I50.9 - Heart failure, unspecified (2) Labpt-xd-ntdteeo kidney injury Current Visit: Yes Status: Acute Assessment and plan: baseline serum creatinine noted to be 2.5, currently improving to 3; possible cardiorenal syndrome; Nephrology consulted, started on IV Albumin and agree with IV Lasix; continue to monitor urine output, electrolytes and avoid nephrotoxins; Qualifiers: Acute renal failure type: unspecified Chronic kidney disease stage: stage 4 (severe) Qualified Code(s): N17.9 - Acute kidney failure, unspecified; N18.4 - Chronic kidney disease, stage 4 (severe); N18.4 - Chronic kidney disease , stage 4 (severe); N18.4 - Chronic kidney disease, stage 4 (severe); N18.4 - Chronic kidney disease, stage 4 (severe) (3) CAD (coronary artery disease) Current Visit: Yes Status: Chronic Qualifiers: Coronary Disease-Associated Artery/Lesion type: bypass graft [place] vs. transplanted heart: [place] heart Associated angina: without angina Qualified Code(s): I25.810 - Atherosclerosis of coronary artery bypass graft(s) without angina pectoris (4) Chronic a-fib Current Visit: Yes Status: Chronic Assessment and plan: currently rate-controlled; continue beta lupe, anticoagulation with Coumadin; (5) HLD (hyperlipidemia) Current Visit: Yes Status: Chronic Qualifiers: Hyperlipidemia type: unspecified Qualified Code(s): E78.5 - Hyperlipidemia , unspecified (6) Anemia Current Visit: Yes Status: Chronic Qualifiers: Anemia type: unspecified type Qualified Code(s): D64.9 - Anemia, unspecified (7) Chronic kidney disease Current Visit: Yes Status: Chronic Qualifiers: Chronic kidney disease stage: stage 4 (severe) Qualified Code(s): N18.4 - Chronic kidney disease, stage 4 (severe) - Subjective Interval history: Reports feeling better; improved shortness of breath; continues to have leg swelling, improving urine output; no chest pain, palpitations, fever/chills; - Constitutional Vitals: Temp Pulse Resp BP Pulse Ox 97.6 F 66 16 133/61 93 05/23/17 17:22 05/23/17 17:22 05/23/17 17:22 05/23/17 17:22 05/23/17 17:22 General appearance: Present: A&O X 3, answers questions appropriately - Respiratory Respiratory exam: Present: CTAB (coarse breath sounds B/L). Absent: accessory muscle use, rales, rhonchi, wheezes - Cardiovascular Cardiovascular exam: Present: RRR, +S1, +S2. Absent: diastolic murmur, gallop, rubs, systolic murmur - GI/Abdominal GI/Abdominal exam: Present: normal bowel sounds, soft, no peritoneal signs. Absent: distended, tenderness - Extremities Exam Extremities exam: Present: full ROM, pedal edema, warm, radial pulses palpable and symmetrical. Absent: calf tenderness, cyanotic - Neurological Exam Neurological exam: Present: CN II-XII intact, oriented X3, no focal deficits. Absent: pronater drift, facial droop, speech deficit Internal Medicine: Result - Labs CBC & Chem 7: 05/22/17 01:49 05/25/17 05:23 Labs: BMP 05/23/17 04:31 Sodium 136 Potassium 4.3 Chloride 105 Carbon Dioxide 23 BUN 67 H Creatinine 3.01 H Glucose 90 Calcium 8.4 L Liver Function 05/23/17 Range/Units 04:31 Albumin 3.0 L (3.5-5.7) g/dL - ABG Interpretation ABG results: PT/INR, D-dimer PT 34.7 Seconds (9.4-12.1) H 05/23/17 04:31 Consult Discharge Plan - Plan Referrals: Shefali Orellana CNP [Primary Care Provider] - 05/31/17 9:00 am (Please follow up as schedule...)
[2017-05-24 03:46] LABS: Bilirubin,Urine Negative (Negative); Blood,Urine Negative (Negative); Clarity,Urine Clear (Clear); Color,Urine Yellow (Yellow); Glucose,Urine (UA) Normal (Normal); Ketones,Urine Negative (Negative); Leukocyte Esterase,Urine Negative (Negative); Nitrite,Urine Negative (Negative); Protein,Urine Negative (Neg-Trace); Specific Gravity,Urine 1.011 (1.010-1.025); Urobilinogen,Urine Normal (Normal)
[2017-05-24] MEDS: Albumin 25% 25gram/100mL 25 GM/100 ML IV.SOLN IVPB SCH ×2 (05:09→17:30)
[2017-05-24 06:16] LABS: INR 2.2; Prothrombin Time 24.4 Seconds (9.4-12.1)
[2017-05-24 06:25] LABS: Calcium 8.8 mg/dL (8.6-10.3); Magnesium 1.8 mg/dL (1.6-2.6); Potassium 3.9 mEq/L (3.5-5.1)
[2017-05-24] MEDS: Furosemide 40 MG/4 ML VIAL IVP SCH ×2 (08:40→17:31)
[2017-05-24] MEDS: Folic Acid 1 MG TABLET PO SCH (08:42)
[2017-05-24] MEDS: Metoprolol XL (24 HR) Succ 50 MG TAB.ER.24H PO SCH (08:42)
[2017-05-24] MEDS: *HR* Amiodarone 200 MG TABLET PO SCH (08:42)
[2017-05-24] MEDS: Cholecalciferol (D-3) 1,000 UNIT TABLET PO SCH (08:42)
--- NOTE | 2017-05-24 13:00 | Nephrology Progress Note ---
Date of Encounter: 05/24/17 Time of Encounter: 12:55 - Assessment and Plan (1) Acute kidney injury Status: Acute SCr improving at 2.69, GFR 23 , will continue diuresing Continue to avoid nephrotoxins if possible (2) Systolic and diastolic CHF, acute on chronic Status: Acute Continue lasix/albumin combination, appears to be working well UOP great at 2875cc in the past 24hrs Continue strict I/Os Continue fluid restriction Subjective Principal diagnosis: CHF Interval history: Pt seen and examined with interim events noted. Objective - Vital Signs Vital signs: Vital Signs Temp Pulse Resp BP Pulse Ox 05/24/17 10:08 97.7 F 59 17 129/73 98 05/24/17 06:55 97.8 F 57 17 133/71 98 05/24/17 04:09 96 05/24/17 04:08 24 96 05/24/17 04:02 97.6 F 60 20 150/71 95 05/23/17 23:58 19 99 05/23/17 23:22 98.6 F 60 21 139/70 100 05/23/17 21:49 37 97 05/23/17 18:25 98.4 F 61 18 123/65 96 05/23/17 17:22 97.6 F 66 16 133/61 93 05/23/17 17:17 54 15 117/65 95 05/23/17 17:15 66 16 133/61 93 05/23/17 15:27 23 98 Intake and Output 05/23/17 05/24/17 05/24/17 23:59 07:59 15:59 Intake Total 100 / 100 Output Total 1275 / 1275 850 / 850 Balance -1175 / -1175 -850 / -850 Intake: IV Fluids 100 / 100 Flexbumin 25 gm In 100 ml @ 60 100 / 100 mls/hr IVPB Q12HR [facility] Rx#: [id number] Output: Urine 1275 / 1275 850 / 850 Other: Stool Size Large Stool Consistency formed Stool Color Brown # Voids 1 Weight 92 kg Patient Weight 05/24/17 23:59 Weight 92 kg - General Appearance General appearance: Present: frail (NAD) EENT: Present: ATNC, mucous membranes moist Neck: Present: supple Respiratory: Present: course breath sounds Cardiology: Present: edema (LE bilat), normal S1, normal S2 Gastrointestinal: Present: no tenderness, no guarding Integumentary: Present: warm and dry Neurologic: Present: no focal deficit Musculoskeletal: Present: no deformities Psychiatric: Present: mood/affect appropriate, cooperative - Lab 05/28/17 03:18 05/28/17 03:18 Most recent lab results Calcium 8.8 mg/dL (8.6-10.3) 05/24/17 05:35 Phosphorus 4.0 mg/dL (2.7-4.5) 05/24/17 05:35 Magnesium 1.8 mg/dL (1.6-2.6) 05/24/17 05:35 Consult Discharge Plan - Plan Instructions: Heart Failure (DC) Additional Instructions: F/up with in 3-4 weeks BMP in 1 week F/up with Cardiology in 4-6 weeks Referrals: Shefali Orellana CNP [Primary Care Provider] - 05/31/17 9:00 am (Please follow up as schedule...)
--- NOTE | 2017-05-24 17:52 | Internal Med Progress Note ---
Date of Encounter: 05/24/17 Time of Encounter: 11:30 - Assessment and plan (1) Acute exacerbation of CHF (congestive heart failure) Current Visit: Yes Status: Acute Assessment and plan: Echo from 03/2017 shows LVEF 40-45%. Mild concentric left ventricular hypertrophy. Mild left ventricular diastolic dysfunction. Severely dilated left and right atrium. Mild aortic regurgitation. Mild-moderate mitral regurgitation. improving but continues to require high flow oxygen, currently on 8 L/m via face mask. continue IV Lasix, fluid restriction, urine output monitoring; noted to have good urine output with negative fluid balance. continue beta lupe; hold ACEI for now; Physical and occupational therapy evaluation noted, recommend inpatient rehabilitation. hvac services professional on board, patient and family agreeable. Qualifiers: Congestive heart failure type: combined Qualified Code(s): I50.43 - Acute on chronic combined systolic (congestive) and diastolic (congestive) heart failure (2) Acute kidney injury Current Visit: Yes Status: Acute Assessment and plan: Likely cardiorenal syndrome. Nephrology on board, continue IV Lasix and albumin. Serum creatinine slowly improving, 2.69 today. Continue current management. (3) Chronic a-fib Current Visit: Yes Status: Chronic Assessment and plan: currently rate-controlled; continue beta lupe, anticoagulation with Coumadin; (4) AICD (automatic cardioverter/defibrillator) present Current Visit: Yes Status: Chronic (5) HLD (hyperlipidemia) Current Visit: Yes Status: Chronic Qualifiers: Hyperlipidemia type: unspecified Qualified Code(s): E78.5 - Hyperlipidemia , unspecified (6) Chronic kidney disease Current Visit: Yes Status: Chronic Qualifiers: Chronic kidney disease stage: stage 4 (severe) Qualified Code(s): N18.4 - Chronic kidney disease, stage 4 (severe) (7) CAD (coronary artery disease) Current Visit: Yes Status: Chronic Qualifiers: Coronary Disease-Associated Artery/Lesion type: bypass graft [place] vs. transplanted heart: [place] heart Associated angina: without angina Qualified Code(s): I25.810 - Atherosclerosis of coronary artery bypass graft(s) without angina pectoris - Subjective Interval history: Has been on intermittent BiPAP since yesterday; however does not report subjective SOB, chest pain or palpitations; slightly improving leg swelling; discussed about rehab placement with patient and family; he is now agreeable; - Constitutional Vitals: Temp Pulse Resp BP Pulse Ox 98.5 F 53 17 124/62 98 05/24/17 15:30 05/24/17 15:30 05/24/17 15:30 05/24/17 15:30 05/24/17 15:30 General appearance: Present: cooperative, A&O X 3, answers questions appropriately - Respiratory Respiratory exam: Present: CTAB (coarse breath sounds B/L). Absent: accessory muscle use, rales, rhonchi, wheezes - Cardiovascular Cardiovascular exam: Present: irregular rhythm, +S1, +S2. Absent: diastolic murmur, gallop, rubs, systolic murmur - GI/Abdominal GI/Abdominal exam: Present: normal bowel sounds, soft, no peritoneal signs. Absent: distended, tenderness - Extremities Exam Extremities exam: Present: pedal edema, warm, radial pulses palpable and symmetrical. Absent: calf tenderness, cyanotic Internal Medicine: Result - Labs CBC & Chem 7: 05/22/17 01:49 05/25/17 05:23 Labs: BMP 05/24/17 05:35 Sodium 138 Potassium 3.9 Chloride 103 Carbon Dioxide 29 BUN 60 H Creatinine 2.69 H Glucose 92 Calcium 8.8 Urine 05/24/17 Range/Units 03:22 Urine Color Yellow (Yellow) Urine Clarity Clear (Clear) Urine pH 6.0 (5.0-8.0) pH Units Ur Specific [place] 1.011 (1.010-1.025) Urine Protein Negative (Neg-Trace) mg/dL Urine Glucose (UA) Normal (Normal) mg/dL - ABG Interpretation ABG results: PT/INR, D-dimer PT 24.4 Seconds (9.4-12.1) H 05/24/17 05:35 Consult Discharge Plan - Plan Referrals: Shefali Orellana CNP [Primary Care Provider] - 05/31/17 9:00 am (Please follow up as schedule...)
[2017-05-24] MEDS ORDERED: *HR* Warfarin 2.5 MG TABLET PO ONE (18:00)
[2017-05-25 06:05] LABS: INR 2.1; Prothrombin Time 23.3 Seconds (9.4-12.1)
[2017-05-25 06:21] LABS: Calcium 8.9 mg/dL (8.6-10.3); Potassium 3.6 mEq/L (3.5-5.1)
[2017-05-25] MEDS: Albumin 25% 25gram/100mL 25 GM/100 ML IV.SOLN IVPB SCH (06:54)
[2017-05-25] MEDS: Furosemide 40 MG/4 ML VIAL IVP SCH ×2 (08:42→18:06)
[2017-05-25] MEDS: Metoprolol XL (24 HR) Succ 50 MG TAB.ER.24H PO SCH (08:43)
[2017-05-25] MEDS: Cholecalciferol (D-3) 1,000 UNIT TABLET PO SCH (08:43)
[2017-05-25] MEDS: Folic Acid 1 MG TABLET PO SCH (08:43)
[2017-05-25] MEDS: *HR* Amiodarone 200 MG TABLET PO SCH (08:43)
--- NOTE | 2017-05-25 10:30 | Nephrology Progress Note ---
Date of Encounter: 05/25/17 Time of Encounter: 10:35 - Assessment and Plan (1) Acute kidney injury Status: Acute SCr improving at 2.34, GFR 27, baseline close to GFR 35 Continue to avoid nephrotoxins if possible (2) Systolic and diastolic CHF, acute on chronic Status: Acute Continue lasix/albumin combination fo one more day and then can tape to po lasix with albumin stopped UOP good at 1450cc in the past 24hrs Continue strict I/Os Continue fluid restriction Subjective Principal diagnosis: CHF Interval history: Pt seen and examined feeling alittle less SOB with improving LE edema Objective - Vital Signs Vital signs: Vital Signs Temp Pulse Resp BP Pulse Ox 05/25/17 08:00 97.7 F 60 20 127/47 97 05/25/17 04:45 97.3 F L 61 18 131/79 97 05/25/17 02:25 20 97 05/25/17 01:11 98.2 F 59 16 138/6 97 05/24/17 21:00 98.1 F 58 16 132/64 97 05/24/17 15:30 98.5 F 53 17 124/62 98 Intake and Output 05/24/17 05/25/17 05/25/17 23:59 07:59 15:59 Intake Total 350 / 350 120 / 120 Output Total 600 / 600 850 / 850 300 / 300 Balance -600 / -600 -500 / -500 -180 / -180 Intake: IV Fluids 100 / 100 Flexbumin 25 gm In 100 ml @ 60 100 / 100 mls/hr IVPB Q12HR [facility] Rx#: [id number] Oral 250 / 250 120 / 120 Output: Urine 600 / 600 850 / 850 300 / 300 Other: Meal Breakfast Percent of Meal Consumed 100% Weight 89.3 kg Blood Glucose* 120 Patient Weight 05/25/17 23:59 Weight 89.3 kg - General Appearance General appearance: Present: chronically ill (NAD) EENT: Present: ATNC, mucous membranes moist Neck: Present: no JVD, supple Respiratory: Present: course breath sounds Cardiology: Present: edema (LE bilat), normal S1, normal S2 Gastrointestinal: Present: no tenderness, no guarding Integumentary: Present: warm and dry Neurologic: Present: no focal deficit Musculoskeletal: Present: no deformities Psychiatric: Present: mood/affect appropriate - Lab 05/28/17 03:18 05/28/17 03:18 Most recent lab results Calcium 8.9 mg/dL (8.6-10.3) 05/25/17 05:23 Phosphorus 4.0 mg/dL (2.7-4.5) 05/24/17 05:35 Magnesium 1.8 mg/dL (1.6-2.6) 05/24/17 05:35 - VTE Documentation of Mechanical Device: Graduated compression elastic hosiery Consult Discharge Plan - Plan Instructions: Heart Failure (DC) Additional Instructions: F/up with in 3-4 weeks BMP in 1 week F/up with Cardiology in 4-6 weeks Referrals: Shefali Orellana CNP [Primary Care Provider] - 05/31/17 9:00 am (Please follow up as schedule...)
--- NOTE | 2017-05-25 17:07 | Internal Med Progress Note ---
Date of Encounter: 05/25/17 Time of Encounter: 10:45 - Assessment and plan (1) Acute exacerbation of CHF (congestive heart failure) Current Visit: Yes Status: Acute Assessment and plan: Echo from 03/2017 shows LVEF 40-45%. Mild concentric left ventricular hypertrophy. Mild left ventricular diastolic dysfunction. Severely dilated left and right atrium. Mild aortic regurgitation. Mild-moderate mitral regurgitation. improving clinically, improving oxygen requirements, currently at 4-6 L/m. continue IV Lasix, fluid restriction, urine output monitoring; noted to have good urine output with negative fluid balance. continue beta lupe; hold ACEI for now; Physical and occupational therapy evaluation noted, recommend inpatient rehabilitation. data services developer on board, patient and family agreeable. Qualifiers: Congestive heart failure type: combined Qualified Code(s): I50.43 - Acute on chronic combined systolic (congestive) and diastolic (congestive) heart failure (2) Acute kidney injury Current Visit: Yes Status: Acute Assessment and plan: Likely cardiorenal syndrome. Nephrology on board, continue IV Lasix and albumin. Serum creatinine slowly improving, 2.34 today. Continue current management. (3) Chronic a-fib Current Visit: Yes Status: Chronic Assessment and plan: currently rate-controlled; continue beta lupe, anticoagulation with Coumadin; (4) AICD (automatic cardioverter/defibrillator) present Current Visit: Yes Status: Chronic (5) HLD (hyperlipidemia) Current Visit: Yes Status: Chronic Qualifiers: Hyperlipidemia type: unspecified Qualified Code(s): E78.5 - Hyperlipidemia , unspecified (6) Chronic kidney disease Current Visit: Yes Status: Chronic Qualifiers: Chronic kidney disease stage: stage 4 (severe) Qualified Code(s): N18.4 - Chronic kidney disease, stage 4 (severe) (7) CAD (coronary artery disease) Current Visit: Yes Status: Chronic Qualifiers: Coronary Disease-Associated Artery/Lesion type: bypass graft [place] vs. transplanted heart: [place] heart Associated angina: without angina Qualified Code(s): I25.810 - Atherosclerosis of coronary artery bypass graft(s) without angina pectoris - Subjective Interval history: Reports feeling well. Improving shortness of breath and leg swelling. No cough , chest pain, palpitations. Improving oxygen requirements. - Constitutional Vitals: Temp Pulse Resp BP Pulse Ox 97.5 F L 51 19 121/48 99 05/25/17 15:33 05/25/17 15:33 05/25/17 15:33 05/25/17 15:33 05/25/17 15:33 General appearance: Present: cooperative, A&O X 3, answers questions appropriately - Respiratory Respiratory exam: Present: CTAB (Coarse breath sounds bilaterally, no active wheezing). Absent: accessory muscle use, rales, rhonchi, wheezes - Cardiovascular Cardiovascular exam: Present: RRR, +S1, +S2. Absent: diastolic murmur, gallop, rubs, systolic murmur - GI/Abdominal GI/Abdominal exam: Present: normal bowel sounds, soft, no peritoneal signs. Absent: distended, tenderness - Extremities Exam Extremities exam: Present: full ROM, pedal edema, warm, radial pulses palpable and symmetrical. Absent: calf tenderness, cyanotic Internal Medicine: Result - Labs CBC & Chem 7: 05/22/17 01:49 05/26/17 05:16 Labs: BMP 05/25/17 05:23 Sodium 141 Potassium 3.6 Chloride 104 Carbon Dioxide 31 H BUN 57 H Creatinine 2.34 H Glucose 94 Calcium 8.9 - ABG Interpretation ABG results: PT/INR, D-dimer PT 23.3 Seconds (9.4-12.1) H 05/25/17 05:23 - VTE Documentation of Mechanical Device: Graduated compression elastic hosiery Consult Discharge Plan - Plan Referrals: Shefali Orellana CNP [Primary Care Provider] - 05/31/17 9:00 am (Please follow up as schedule...)
[2017-05-25] MEDS ORDERED: *HR* Warfarin 2.5 MG TABLET PO ONE (18:00)
[2017-05-26 06:40] LABS: INR 1.9; Prothrombin Time 20.9 Seconds (9.4-12.1)
[2017-05-26 06:56] LABS: Calcium 8.7 mg/dL (8.6-10.3); Potassium 3.4 mEq/L (3.5-5.1)
[2017-05-26] MEDS: Furosemide 40 MG/4 ML VIAL IVP SCH (09:50)
[2017-05-26] MEDS: Folic Acid 1 MG TABLET PO SCH (09:51)
[2017-05-26] MEDS: Metoprolol XL (24 HR) Succ 50 MG TAB.ER.24H PO SCH (09:51)
[2017-05-26] MEDS: *HR* Amiodarone 200 MG TABLET PO SCH (09:51)
[2017-05-26] MEDS: Cholecalciferol (D-3) 1,000 UNIT TABLET PO SCH (09:51)
--- NOTE | 2017-05-26 10:56 | Nephrology Progress Note ---
Date of Encounter: 05/26/17 Time of Encounter: 10:55 - Assessment and Plan (1) Acute kidney injury Status: Acute SCr improving at 2.42 GFR 26 due to diuretics, baseline close to GFR 35 Continue to avoid nephrotoxins if possible (2) Systolic and diastolic CHF, acute on chronic Status: Acute Will change lasix to po from iv UOP good at 2650cc in the past 24hrs Continue strict I/Os Continue fluid restriction Subjective Principal diagnosis: CHF Interval history: Pt seen and examined with less SOB and LE edema overall. Objective - Vital Signs Vital signs: Vital Signs Temp Pulse Resp BP Pulse Ox 05/26/17 08:02 97.7 F 55 18 138/73 94 05/26/17 03:55 97.5 F L 57 16 126/60 91 05/26/17 00:06 97.4 F L 55 16 122/65 92 05/25/17 19:17 97.6 F 56 17 118/54 92 05/25/17 15:33 97.5 F L 51 19 121/48 99 05/25/17 12:06 97.3 F L 58 21 120/47 98 Intake and Output 05/25/17 05/26/17 05/26/17 23:59 07:59 15:59 Intake Total 940 / 940 100 / 100 360 / 360 Output Total 600 / 600 1100 / 1100 200 / 200 Balance 340 / 340 -1000 / -1000 160 / 160 Intake: IV Fluids 100 / 100 Oral 940 / 940 360 / 360 Output: Urine 600 / 600 1100 / 1100 200 / 200 Other: Meal Dinner Breakfast Percent of Meal Consumed 100% 100% # Voids 2 Weight 86.2 kg 85.548 kg Patient Weight 05/26/17 23:59 Weight 85.548 kg - General Appearance General appearance: Present: chronically ill (NAD) EENT: Present: ATNC, mucous membranes moist Neck: Present: no JVD, supple Additional Comments: improved areation ant bilat Cardiology: Present: edema (improved), normal S1, normal S2 Gastrointestinal: Present: no tenderness, no guarding Integumentary: Present: warm and dry Neurologic: Present: no focal deficit Musculoskeletal: Present: no deformities Psychiatric: Present: mood/affect appropriate - Lab 05/28/17 03:18 05/28/17 03:18 Most recent lab results Calcium 8.7 mg/dL (8.6-10.3) 05/26/17 05:16 Phosphorus 4.0 mg/dL (2.7-4.5) 05/24/17 05:35 Magnesium 1.8 mg/dL (1.6-2.6) 05/24/17 05:35 Urine Sodium 94.7 mEq/L 05/25/17 10:45 - VTE Documentation of Mechanical Device: Intermittent pneumatic compression device Consult Discharge Plan - Plan Instructions: Heart Failure (DC) Additional Instructions: F/up with in 3-4 weeks BMP in 1 week F/up with Cardiology in 4-6 weeks Referrals: Esteban,Shefali Schwartz CNP [Primary Care Provider] - 05/31/17 9:00 am (Please follow up as schedule...)
[2017-05-26] MEDS ORDERED: Potassium Chloride Elixir 20 MEQ/15 ML UDC PO ONE ×2 (11:19→17:45)
--- NOTE | 2017-05-26 17:04 | Internal Med Progress Note ---
Date of Encounter: 05/26/17 Time of Encounter: 11:10 - Assessment and plan (1) Acute exacerbation of CHF (congestive heart failure) Current Visit: Yes Status: Acute Assessment and plan: Echo from 03/2017 shows LVEF 40-45%. Mild concentric left ventricular hypertrophy. Mild left ventricular diastolic dysfunction. Severely dilated left and right atrium. Mild aortic regurgitation. Mild-moderate mitral regurgitation. improving clinically, improving oxygen requirements, currently at 2 L/m. and will change diuretics to oral Lasix, continue fluid restriction, urine output monitoring; noted to have good urine output with negative fluid balance. continue beta lupe; hold ACEI for now; Physical and occupational therapy evaluation noted, recommend inpatient rehabilitation. program services assistant on board, patient and family agreeable. Medically stable, pending rehabilitation placement. Qualifiers: Congestive heart failure type: combined Qualified Code(s): I50.43 - Acute on chronic combined systolic (congestive) and diastolic (congestive) heart failure (2) Acute kidney injury Current Visit: Yes Status: Acute Assessment and plan: Likely cardiorenal syndrome. Serum creatinine and urine output significantly improved during this stay; creatinine slightly higher now, will change to oral Lasix; Nephrology on board. (3) Chronic a-fib Current Visit: Yes Status: Chronic Assessment and plan: currently rate-controlled; continue beta lupe, anticoagulation with Coumadin; (4) AICD (automatic cardioverter/defibrillator) present Current Visit: Yes Status: Chronic (5) HLD (hyperlipidemia) Current Visit: Yes Status: Chronic Qualifiers: Hyperlipidemia type: unspecified Qualified Code(s): E78.5 - Hyperlipidemia , unspecified (6) Chronic kidney disease Current Visit: Yes Status: Chronic Qualifiers: Chronic kidney disease stage: stage 4 (severe) Qualified Code(s): N18.4 - Chronic kidney disease, stage 4 (severe) (7) CAD (coronary artery disease) Current Visit: Yes Status: Chronic Qualifiers: Coronary Disease-Associated Artery/Lesion type: bypass graft [place] vs. transplanted heart: [place] heart Associated angina: without angina Qualified Code(s): I25.810 - Atherosclerosis of coronary artery bypass graft(s) without angina pectoris - Subjective Interval history: Reports feeling well. Improving shortness of breath and leg swelling. No cough , chest pain, palpitations. Saturating well on room air. - Constitutional Vitals: Temp Pulse Resp BP Pulse Ox 97.5 F L 53 18 122/58 97 05/26/17 11:35 05/26/17 11:35 05/26/17 11:35 05/26/17 11:35 05/26/17 12:03 General appearance: Present: cooperative, A&O X 3, answers questions appropriately - Respiratory Respiratory exam: Present: CTAB. Absent: accessory muscle use, rales, rhonchi, wheezes - Cardiovascular Cardiovascular exam: Present: RRR, +S1, +S2. Absent: diastolic murmur, gallop, rubs, systolic murmur - GI/Abdominal GI/Abdominal exam: Present: normal bowel sounds, soft, no peritoneal signs. Absent: distended, tenderness - Extremities Exam Extremities exam: Present: full ROM, pedal edema, warm, radial pulses palpable and symmetrical. Absent: calf tenderness, cyanotic Internal Medicine: Result - Labs CBC & Chem 7: 05/22/17 01:49 05/26/17 05:16 Labs: BMP 05/26/17 05:16 Sodium 142 Potassium 3.4 L Chloride 104 Carbon Dioxide 29 BUN 58 H Creatinine 2.42 H Glucose 87 Calcium 8.7 - ABG Interpretation ABG results: PT/INR, D-dimer PT 20.9 Seconds (9.4-12.1) H 05/26/17 05:16 - VTE Documentation of Mechanical Device: Graduated compression elastic hosiery Consult Discharge Plan - Plan Referrals: Shefali Orellana CNP [Primary Care Provider] - 05/31/17 9:00 am (Please follow up as schedule...)
[2017-05-26] MEDS ORDERED: *HR* Warfarin 2.5 MG TABLET PO ONE (18:00)
[2017-05-27 04:46] LABS: Prothrombin Time 22.2 Seconds (9.4-12.1)
[2017-05-27] MEDS: Furosemide 40 MG TABLET PO SCH (09:00)
[2017-05-27] MEDS: Folic Acid 1 MG TABLET PO SCH (09:00)
[2017-05-27] MEDS: Metoprolol XL (24 HR) Succ 50 MG TAB.ER.24H PO SCH (09:00)
[2017-05-27] MEDS: Cholecalciferol (D-3) 1,000 UNIT TABLET PO SCH (09:01)
[2017-05-27] MEDS: *HR* Amiodarone 200 MG TABLET PO SCH (09:01)
[2017-05-27 10:58] LABS: Calcium 8.8 mg/dL (8.6-10.3); Potassium 3.9 mEq/L (3.5-5.1)
--- NOTE | 2017-05-27 14:15 | Discharge Summary ---
Date of Encounter: 05/27/17 Time of Encounter: 10:30 - Discharge Diagnosis (1) Acute exacerbation of CHF (congestive heart failure) Priority: Primary Status: Acute Qualifiers: Congestive heart failure type: combined Qualified Code(s): I50.43 - Acute on chronic combined systolic (congestive) and diastolic (congestive) heart failure (2) Acute kidney injury Priority: Primary Status: Acute (3) Chronic a-fib Priority: Secondary Status: Chronic (4) AICD (automatic cardioverter/defibrillator) present Priority: Secondary Status: Chronic (5) HLD (hyperlipidemia) Priority: Secondary Status: Chronic Qualifiers: Hyperlipidemia type: unspecified Qualified Code(s): E78.5 - Hyperlipidemia , unspecified (6) Chronic kidney disease Priority: Secondary Status: Chronic Qualifiers: Chronic kidney disease stage: stage 4 (severe) Qualified Code(s): N18.4 - Chronic kidney disease, stage 4 (severe) (7) CAD (coronary artery disease) Priority: Secondary Status: Chronic Qualifiers: Coronary Disease-Associated Artery/Lesion type: bypass graft [place] vs. transplanted heart: [place] heart Associated angina: without angina Qualified Code(s): I25.810 - Atherosclerosis of coronary artery bypass graft(s) without angina pectoris - Discharge Medications Home Medications: Amiodarone [Cordarone] 200 mg PO QAM 01/06/15 [History] Metoprolol XL (24 HR) Succ [Toprol Xl] 50 mg PO QAM 01/06/15 [History] Mexiletine [Mexitil] 200 mg PO Q8H 01/06/15 [History] Pravastatin Sodium 10 mg PO QPM 01/06/15 [History] Cholecalciferol (D-3) [Vitamin D] 2,000 unit PO DAILY 06/04/16 [History] Denosumab [Prolia (For Outpatient Infusion)] 60 mg SQ [id number] 04/17/17 [History ] Testosterone [Androgel] 2 appl TD DAILY 04/17/17 [History] Warfarin [Coumadin] 1.5 mg PO TUSA 04/17/17 [History] Warfarin [Coumadin] 3 mg PO SUMOWETHFR 04/17/17 [History] Folic Acid 1 mg PO DAILY #30 tablet 05/13/17 [Rx] Furosemide [Lasix] 40 mg PO DAILY 05/21/17 [History] Allergies/Adverse Reactions: 3 Allergy/AdvReac Type Severity Reaction Status Date / Time No Known Allergies Allergy Verified 05/09/17 13:18 Date of admission: 05/22/17 00:50 Primary care physician: Shefali Orellana CNP Consults: 05/22/17 12:14 Consult to Nephrology [CONS] Routine Consulting Provider: Kidney Kalyani/DULCE MARIA/BERHANE/EN Reason for Consult: LA on CKD, acute CHF, on IV Lasix Call Completed: Yes 05/22/17 13:43 Consult to Occupational Therapy [CONS] Routine Comment: Evaluate, develop and implement POC Reason for Consult: eval due to pt [facility] to [facility] Consult to Physical Therapy [CONS] Routine Comment: Evaluate, develop and implement POC Reason for Consult: eval due to pt wants to go to [facility] 05/24/17 08:09 Consult to Meter/Relay Craftsman [CONS] Routine Reason for SW Consult: needs swing bed Discharging clinician: Ngoc Hernández Anticipated date of discharge: 05/27/17 - Patient Status Disposition: Transfer Inpatient Rehab Fac Condition: Good Functional capacity at discharge: uses cane/walker Overall status at discharge: patient is progressing back to baseline - Ambulatory Orders Ambulatory Orders: Basic Metabolic Panel [CHEM] Time Frame: 1 Week, Facility: [facility], Location: Lab - Discharge Instructions Follow Up With: Shefali Orellana CNP [Primary Care Provider] - 05/31/17 9:00 am (Please follow up as schedule...) Additional Instructions: F/up with in 3-4 weeks BMP in 1 week F/up with Cardiology in 4-6 weeks - Diet and Activity Activity: as per physical therapy, wear oxygen at all times, other (CPAP at night) Diet: low fat, low cholesterol, low salt diet, other (renal diet) Hospital course: Mr. Auguste is a 81 year old male with the above medical problems, who was admitted with shortness of breath and worsening pedal edema. He was noted to be in acute CHF and started on IV Lasix, fluid restriction and urine output monitoring. He was noted to have LA due to likely cardiorenal syndrome; Nephrology was consulted and assisted with management. IV Lasix has been changed to oral form and patient had significant urine output and net negative fluid balance of at least 5-6L. Serum creatinine improved to baseline and is currently slightly higher. He was noted to have acute on chronic respiratory failure, requiring upto 8L/ min O2 via face mask, and is currently back to baseline, requiring 1-2L/min via NC intermittently. PT/OT evaluation was done, recommend inpatient rehab; patient is currently medically stable for this transfer, pending rehab placement. He was explained regarding fluid and salt restriction. - Time Spent with Patient Total time spent providing and/or coordinating discharge services: Greater than 30 minutes (45 min) - Constitutional Vitals: Temp Pulse Resp BP Pulse Ox 97.5 F L 50 18 124/46 95 05/27/17 11:40 05/27/17 11:40 05/27/17 11:40 05/27/17 11:40 05/27/17 11:40 General appearance: Present: cooperative, A&O X 3, answers questions appropriately - Cardiovascular Cardiovascular exam: Present: RRR, +S1, +S2. Absent: diastolic murmur, gallop, rubs, systolic murmur - VTE Documentation of Mechanical Device: Graduated compression elastic hosiery
--- NOTE | 2017-05-27 14:18 | Physician Discharge Referral ---
ExtendedCare Referral Info Transfer To: [facility] Provider in Charge: Ngoc Hernández Provider in Charge after Transfer: PCP Institutional Level of Care: Intermediate - Diagnosis (1) Acute exacerbation of CHF (congestive heart failure) Priority: Primary Status: Acute (2) Acute kidney injury Priority: Primary Status: Acute (3) Chronic a-fib Priority: Secondary Status: Chronic (4) AICD (automatic cardioverter/defibrillator) present Priority: Secondary Status: Chronic (5) HLD (hyperlipidemia) Priority: Secondary Status: Chronic (6) Chronic kidney disease Priority: Secondary Status: Chronic (7) CAD (coronary artery disease) Priority: Secondary Status: Chronic Expected Duration of Placement: 3 weeks Prognosis: Fair Aware of Diagnosis: Patient, Family Aware of Prognosis: Patient, Family - Transfer Medications Home Medications: Amiodarone [Cordarone] 200 mg PO QAM 01/06/15 [History] Metoprolol XL (24 HR) Succ [Toprol Xl] 50 mg PO QAM 01/06/15 [History] Mexiletine [Mexitil] 200 mg PO Q8H 01/06/15 [History] Pravastatin Sodium 10 mg PO QPM 01/06/15 [History] Cholecalciferol (D-3) [Vitamin D] 2,000 unit PO DAILY 06/04/16 [History] Denosumab [Prolia (For Outpatient Infusion)] 60 mg SQ [id number] 04/17/17 [History ] Testosterone [Androgel] 2 appl TD DAILY 04/17/17 [History] Warfarin [Coumadin] 1.5 mg PO TUSA 04/17/17 [History] Warfarin [Coumadin] 3 mg PO SUMOWETHFR 04/17/17 [History] Folic Acid 1 mg PO DAILY #30 tablet 05/13/17 [Rx] Furosemide [Lasix] 40 mg PO DAILY 05/21/17 [History] Allergies/Adverse Reactions: 3 Allergy/AdvReac Type Severity Reaction Status Date / Time No Known Allergies Allergy Verified 05/09/17 13:18 - Respiratory Orders Oxygen / L per min (2L/min vi nc) Smoking Cessation: Smoking cessation has been advised. For more information, call the [place] Tobacco Quit Line at 6-531-PDBT-NOW. - Advance Directives Power of Sales Project Engineer: Yes () Code Status: Full Code - Mobility Orders Ambulate - Rehabiliation Orders Rehab Potential: Fair Rehab Orders: ROM Exercises, Evaluation for Physical Therapy, Evaluation for Occupational Therapy - Diet Orders Renal, Cardiac CERTIFICATION: I certify that the transfer of the above named patient to an Extended Care Facility is necessary for the continuing treatment of the diagnosis listed. The above information is true and accurate reflection of patient's current condition. Confidential - Redisclosure prohibited without a patient's written consent.
--- NOTE | 2017-05-27 17:41 | Nephrology Progress Note ---
Date of Encounter: 05/27/17 Time of Encounter: 11:00 - Assessment and Plan (1) Acute exacerbation of CHF (congestive heart failure) Current Visit: Yes Status: Acute Mosty resolved and back on po lasix UOP great at 2225cc in the past 24hrs Continue strict I/Os Continue fluid restriction Qualifiers: Congestive heart failure type: combined Qualified Code(s): I50.43 - Acute on chronic combined systolic (congestive) and diastolic (congestive) heart failure (2) Acute kidney injury Current Visit: Yes Status: Acute SCr slightly worse at 2.6, GFR 24, likely from diuresis. Should improve off iv lasix Will need followup appt with nephrology on discharge as well as BMP Continue to avoid nephrotoxins if possible Subjective Principal diagnosis: CHF Interval history: Pt seen and examined feeling better. No SOB off oxygen Objective - Vital Signs Vital signs: Vital Signs Temp Pulse Resp BP Pulse Ox 05/27/17 17:21 97.6 F 58 19 121/59 98 05/27/17 16:15 50 121/43 05/27/17 14:07 97.3 F L 54 16 131/63 97 05/27/17 11:40 97.5 F L 50 18 124/46 95 05/27/17 09:00 65 142/70 05/27/17 07:49 97.5 F L 50 18 109/58 92 05/27/17 04:20 97.9 F 56 17 125/76 91 05/26/17 22:57 97.4 F L 54 18 133/73 91 05/26/17 19:42 98.7 F 80 17 130/70 96 Intake and Output 05/27/17 05/27/17 05/27/17 07:59 15:59 23:59 Intake Total 500 / 500 380 / 380 120 / 120 Output Total 500 / 500 0 / 0 Balance 0 / 0 380 / 380 120 / 120 Intake: Oral 500 / 500 380 / 380 120 / 120 Output: Urine 500 / 500 0 / 0 Other: Meal Lunch Dinner Percent of Meal Consumed 100% 100% Weight 85.5 kg Patient Weight 05/27/17 23:59 Weight 85.5 kg - General Appearance General appearance: Present: chronically ill (NAD) EENT: Present: ATNC, mucous membranes moist Neck: Present: no JVD, supple Additional Comments: improved areation ant bilat Cardiology: Present: no edema, normal S1, normal S2 Gastrointestinal: Present: no tenderness, no guarding Integumentary: Present: warm and dry Neurologic: Present: no focal deficit Musculoskeletal: Present: no deformities Psychiatric: Present: mood/affect appropriate - Lab 05/22/17 01:49 05/27/17 03:59 Most recent lab results Calcium 8.8 mg/dL (8.6-10.3) 05/27/17 03:59 Phosphorus 4.0 mg/dL (2.7-4.5) 05/24/17 05:35 Magnesium 1.7 mg/dL (1.6-2.6) 05/27/17 03:59 Urine Sodium 94.7 mEq/L 05/25/17 10:45 - VTE Documentation of Mechanical Device: Graduated compression elastic hosiery Consult Discharge Plan - Plan Additional Instructions: F/up with in 3-4 weeks BMP in 1 week F/up with Cardiology in 4-6 weeks Referrals: Shefali Orellana CNP [Primary Care Provider] - 05/31/17 9:00 am (Please follow up as schedule...)
[2017-05-27] MEDS ORDERED: *HR* Warfarin 2.5 MG TABLET PO ONE (18:00)
[2017-05-28 03:51] LABS: Hematocrit 35.7 % (37.5-50.1); Hemoglobin 11.1 g/dL (12.9-16.9); Mean Corpuscular HGB Conc 31.1 g/dL (31.6-35.5); Mean Corpuscular Hemoglobin 28.5 pg (28.0-33.3); Mean Corpuscular Volume 91.5 fL (83.0-100.0); Platelet Count 121 K/mcL (140-400); Red Cell Distribution Width 15.3 % (11.5-14.5)
[2017-05-28 03:55] LABS: INR 2.1; Prothrombin Time 22.7 Seconds (9.4-12.1)
[2017-05-28 04:06] LABS: Calcium 8.6 mg/dL (8.6-10.3); Potassium 4.1 mEq/L (3.5-5.1)
[2017-05-28] MEDS: Folic Acid 1 MG TABLET PO SCH (09:25)
[2017-05-28] MEDS: Cholecalciferol (D-3) 1,000 UNIT TABLET PO SCH (09:25)
[2017-05-28] MEDS: *HR* Amiodarone 200 MG TABLET PO SCH (09:25)
[2017-05-28] MEDS: Furosemide 40 MG TABLET PO SCH (09:25)
[2017-05-28] MEDS: Metoprolol XL (24 HR) Succ 50 MG TAB.ER.24H PO SCH (09:25)
--- NOTE | 2017-05-28 09:57 | Discharge Summary ---
Date of Encounter: 05/28/17 Time of Encounter: 09:55 - Discharge Diagnosis (1) Systolic and diastolic CHF, acute on chronic Priority: Primary Status: Acute (2) Acute kidney injury superimposed on CKD Priority: Primary Status: Acute (3) AICD (automatic cardioverter/defibrillator) present Priority: Secondary Status: Chronic (4) PAF (paroxysmal atrial fibrillation) Priority: Secondary Status: Chronic - Discharge Medications Home Medications: Amiodarone [Cordarone] 200 mg PO QAM 01/06/15 [History] Metoprolol XL (24 HR) Succ [Toprol Xl] 50 mg PO QAM 01/06/15 [History] Mexiletine [Mexitil] 200 mg PO Q8H 01/06/15 [History] Pravastatin Sodium 10 mg PO QPM 01/06/15 [History] Cholecalciferol (D-3) [Vitamin D] 2,000 unit PO DAILY 06/04/16 [History] Denosumab [Prolia (For Outpatient Infusion)] 60 mg SQ [id number] 04/17/17 [History ] Testosterone [Androgel] 2 appl TD DAILY 04/17/17 [History] Warfarin [Coumadin] 1.5 mg PO TUSA 04/17/17 [History] Warfarin [Coumadin] 3 mg PO SUMOWETHFR 04/17/17 [History] Folic Acid 1 mg PO DAILY #30 tablet 05/13/17 [Rx] Furosemide [Lasix] 40 mg PO DAILY 05/21/17 [History] Allergies/Adverse Reactions: 3 Allergy/AdvReac Type Severity Reaction Status Date / Time No Known Allergies Allergy Verified 05/09/17 13:18 Date of admission: 05/22/17 00:50 Primary care physician: Shefali Orellana CNP Consults: 05/22/17 12:14 Consult to Nephrology [CONS] Routine Consulting Provider: Kidney Kalyani/DULCE MARIA/BERHANE/EN Reason for Consult: LA on CKD, acute CHF, on IV Lasix Call Completed: Yes 05/22/17 13:43 Consult to Occupational Therapy [CONS] Routine Comment: Evaluate, develop and implement POC Reason for Consult: eval due to pt [facility] to [facility] Consult to Physical Therapy [CONS] Routine Comment: Evaluate, develop and implement POC Reason for Consult: eval due to pt wants to go [facility] 05/24/17 08:09 Consult to Ticket Attendant [CONS] Routine Reason for SW Consult: needs swing bed Discharging clinician: Vlad Barfield Anticipated date of discharge: 05/28/17 - Patient Status Disposition: Transfer Inpatient Rehab Fac Condition: Good - Ambulatory Orders Ambulatory Orders: Basic Metabolic Panel [CHEM] Time Frame: 1 Week, Facility: [facility], Location: Lab - Discharge Instructions Instructions: Heart Failure (DC) Follow Up With: Shefali Orellana CNP [Primary Care Provider] - 05/31/17 9:00 am (Please follow up as schedule...) Additional Instructions: F/up with in 3-4 weeks BMP in 1 week F/up with Cardiology in 4-6 weeks Interval History: CANCEL THIS DISCHARGE SUMMARY. Mr. Auguste already has a bed with [facility] and Discharge orders and summary were placed by another provider. Patient discharged prior to evaluation by my attending. Disregard this note. - Vlad Barfield DO Hospital course: Mr. Auguste is a 81 year old male - Time Spent with Patient Total time spent providing and/or coordinating discharge services: - Constitutional Vitals: Temp Pulse Resp BP Pulse Ox 97.9 F 55 16 131/72 93 05/28/17 06:58 05/28/17 06:58 05/28/17 06:58 05/28/17 06:58 05/28/17 06:58 General appearance: Present: cooperative, A&O X 3, answers questions appropriately - Head Head exam: Present: atraumatic, normocephalic - Eye Eye exam: Present: PERRL, conjuntiva pink, sclera anicteric Pupils: Present: PERRL - Neck Neck exam general surgery: Present: supple, trachea midline. Absent: lymphadenopathy - Respiratory Respiratory exam: Present: CTAB. Absent: accessory muscle use, rales, rhonchi, wheezes - Cardiovascular Cardiovascular exam: Present: RRR, +S1, +S2. Absent: diastolic murmur, gallop, rubs, systolic murmur - GI/Abdominal GI/Abdominal exam: Present: normal bowel sounds, soft, no peritoneal signs. Absent: distended, tenderness - Extremities Exam Extremities exam: Present: pedal edema (trace pedal edema ), warm, radial pulses palpable and symmetrical. Absent: calf tenderness, cyanotic - Neurological Exam Neurological exam: Present: CN II-XII intact, oriented X3, no focal deficits. Absent: pronater drift, facial droop, speech deficit - Skin Skin exam: Present: dry, intact - VTE Documentation of Mechanical Device: Graduated compression elastic hosiery
[2017-05-28 10:26] VITALS: BP 143/59
--- NOTE | 2017-05-28 16:28 | Internal Med Progress Note ---
Date of Encounter: 05/28/17 Time of Encounter: 08:00 - Assessment and plan (1) Systolic and diastolic CHF, acute on chronic Current Visit: Yes Status: Acute (2) Acute kidney injury superimposed on CKD Current Visit: Yes Status: Acute (3) AICD (automatic cardioverter/defibrillator) present Current Visit: Yes Status: Chronic (4) PAF (paroxysmal atrial fibrillation) Current Visit: Yes Status: Chronic - Subjective Interval history: Mr. Auguste 81 yo male seen and evaluated patient bedside and was in no acute distress. He denies any shortness of breath, chest pain or chest pressure, was able lay flat without any signs of orthopnea. He states that he is waiting for discharge home and had no complaints at this time. He is tolerating oral intake voiding appropriately and having bowel movements without concern. No further questions at this time. - Constitutional Vitals: Temp Pulse Resp BP Pulse Ox 98.0 F 56 16 143/59 95 05/28/17 10:25 05/28/17 10:25 05/28/17 10:25 05/28/17 10:25 05/28/17 10:25 General appearance: Present: cooperative, A&O X 3, answers questions appropriately Internal Medicine: Result - Labs CBC & Chem 7: 05/28/17 03:18 05/28/17 03:18 Labs: Short CBC 05/28/17 Range/Units 03:18 WBC 6.3 (4.3-11.1) K/mcL Hgb 11.1 L (12.9-16.9) g/dL Hct 35.7 L (37.5-50.1) % Plt Count 121 L (140-400) K/mcL [facility] 05/28/17 03:18 Sodium 142 Potassium 4.1 Chloride 105 Carbon Dioxide 30 H BUN 60 H Creatinine 2.29 H Glucose 91 Calcium 8.6 - ABG Interpretation ABG results: PT/INR, D-dimer PT 22.7 Seconds (9.4-12.1) H 05/28/17 03:18 - VTE Documentation of Mechanical Device: Graduated compression elastic hosiery Consult Discharge Plan - Plan Instructions: Heart Failure (DC) Additional Instructions: F/up with in 3-4 weeks BMP in 1 week F/up with Cardiology in 4-6 weeks Referrals: Shefali Orellana CNP [Primary Care Provider] - 05/31/17 9:00 am (Please follow up as schedule...)
--- NOTE | 2017-05-28 16:32 | Internal Med Progress Note ---
<Vlad Barfield - Last Filed: 05/28/17 16:29> Date of Encounter: 05/28/17 Time of Encounter: 08:00 - Assessment and plan (1) Systolic and diastolic CHF, acute on chronic Status: Acute Assessment and plan: Echo from 03/2017 demonstrated: LVEF 40-45%. Mild concentric left ventricular hypertrophy. Mild left ventricular diastolic dysfunction. Severely dilated left and right atrium. Mild aortic regurgitation. Mild-moderate mitral regurgitation. - Clinically improved upon examination today. No orthopnea, appears euvolemic. 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 Patient creatinine and GFR around baseline. - Seen by nephrology inpatient and will follow up outpatient after dsicharge with follow up BMP. (3) AICD (automatic cardioverter/defibrillator) present Status: Chronic Assessment and plan: Stable, EKGs reviewed. Patient asymptomatic (4) PAF (paroxysmal atrial fibrillation) Status: Chronic Assessment and plan: Stable. No changes from baseline. INR appropriate/Theraputic at 2.1 Continue outpatient. - Subjective Interval history: Mr. Auguste 81 yo male seen and evaluated patient bedside and was in no acute distress. He denies any shortness of breath, chest pain or chest pressure, was able lay flat without any signs of orthopnea. He states that he is waiting for discharge home and had no complaints at this time. He is tolerating oral intake voiding appropriately and having bowel movements without concern. No further questions at this time. Mr. Auguste was seen by myself and was not seen by my attending prior to Mr. Auguste 's discharge this evening. There were no changes to his medications or additions to his care. His Discharge orders, scripts ands summary were already completed. - Constitutional Vitals: Temp Pulse Resp BP Pulse Ox 98.0 F 56 16 143/59 95 05/28/17 10:25 05/28/17 10:25 05/28/17 10:25 05/28/17 10:25 05/28/17 10:25 General appearance: Present: cooperative, A&O X 3, answers questions appropriately - Head Head exam: Present: atraumatic, normocephalic - Eye Eye exam: Present: PERRL, conjuntiva pink, sclera anicteric Pupils: Present: PERRL - Neck Neck exam general surgery: Present: supple, trachea midline. Absent: lymphadenopathy - Respiratory Respiratory exam: Present: CTAB. Absent: accessory muscle use, rales, rhonchi, wheezes - Cardiovascular Cardiovascular exam: Present: RRR, +S1, +S2. Absent: diastolic murmur, gallop, rubs, systolic murmur Additional comments: AICD in upper chest. - GI/Abdominal GI/Abdominal exam: Present: normal bowel sounds, soft, no peritoneal signs. Absent: distended, tenderness - Extremities Exam Extremities exam: Present: warm, radial pulses palpable and symmetrical. Absent : calf tenderness, cyanotic, pedal edema - Neurological Exam Neurological exam: Present: CN II-XII intact, oriented X3, no focal deficits. Absent: pronater drift, facial droop, speech deficit - Skin Skin exam: Present: dry, intact Internal Medicine: Result - Labs CBC & Chem 7: 05/28/17 03:18 05/28/17 03:18 Labs: Short CBC 05/28/17 Range/Units 03:18 WBC 6.3 (4.3-11.1) K/mcL Hgb 11.1 L (12.9-16.9) g/dL Hct 35.7 L (37.5-50.1) % Plt Count 121 L (140-400) K/mcL BMP 05/28/17 03:18 Sodium 142 Potassium 4.1 Chloride 105 Carbon Dioxide 30 H BUN 60 H Creatinine 2.29 H Glucose 91 Calcium 8.6 - ABG Interpretation ABG results: PT/INR, D-dimer PT 22.7 Seconds (9.4-12.1) H 05/28/17 03:18 - VTE Documentation of Mechanical Device: Graduated compression elastic hosiery Consult Discharge Plan - Plan Instructions: Heart Failure (DC) Additional Instructions: F/up with in 3-4 weeks BMP in 1 week F/up with Cardiology in 4-6 weeks Referrals: Shefali Orellana CNP [Primary Care Provider] - 05/31/17 9:00 am (Please follow up as schedule...) <Dave Pastor - Last Filed: 05/28/17 18:58> Date of Encounter: 05/28/17 - Constitutional Vitals: Temp Pulse Resp BP Pulse Ox 98.0 F 56 16 143/59 95 05/28/17 10:25 05/28/17 10:25 05/28/17 10:25 05/28/17 10:25 05/28/17 10:25 Internal Medicine: Result - Labs CBC & Chem 7: 05/28/17 03:18 05/28/17 03:18 Labs: Short CBC 05/28/17 Range/Units 03:18 WBC 6.3 (4.3-11.1) K/mcL Hgb 11.1 L (12.9-16.9) g/dL Hct 35.7 L (37.5-50.1) % Plt Count 121 L (140-400) K/mcL BMP 05/28/17 03:18 Sodium 142 Potassium 4.1 Chloride 105 Carbon Dioxide 30 H BUN 60 H Creatinine 2.29 H Glucose 91 Calcium 8.6 - ABG Interpretation ABG results: PT/INR, D-dimer PT 22.7 Seconds (9.4-12.1) H 05/28/17 03:18 - Attending Attestation I examined this patient and my medical decision-making was reviewed with the Resident Physician. I agree with the documented findings, disposition and treatment plan as described except to the extent set forth below. I have not seen this patient and I am signing this note as forwarded by resident. please do not bill for this note as no services were provided.
[2017-05-28] MEDS ORDERED: *HR* Warfarin 2.5 MG TABLET PO ONE (18:00)
== END 2017-05-28 16:30 | DRG 291 ==
LOC: EMEROO 16:35 → 2ANU 16:35 → SUATTDRO 05-22 00:50
PROVIDERS: ADMIT Internal Medicine; ATTEND Internal Medicine

== ENCOUNTER 2022-02-22 17:11 | Inpatient (IN) ==
[2022-02-22 19:31] LABS: Hemoglobin 13.3 g/dL (12.9-16.9); Lymphocytes # 0.6 K/mcL (0.6-4.6); Mean Corpuscular HGB Conc 31.7 g/dL (31.6-35.5); Mean Corpuscular Hemoglobin 29.8 pg (28.0-33.3); Mean Platelet Volume 11.3 fL (9.4-12.4); Nucleated Red Blood Cells 1.3 /100 WBC (0); Platelet Count 159 K/mcL (140-400); Red Blood Count 4.47 M/mcL (4.19-5.50); Red Cell Distribution Width 15.1 % (11.5-14.5); White Blood Count 9.5 K/mcL (4.3-11.1)
[2022-02-22 19:40] LABS: Activated Partial Thrombo Time 69.1 Seconds (26.0-36.0)
[2022-02-22 19:56] LABS: INR 12.4; Prothrombin Time 135.3 Seconds (9.4-12.1)
[2022-02-22 20:08] LABS: Potassium 5.2 mEq/L (3.5-5.1); Troponin I 0.15 ng/mL (< 0.04)
[2022-02-22] MEDS ORDERED: 0.9 % Sodium Chloride 1,000 ML IV ONE (20:09)
[2022-02-22 20:18] LABS: Eosinophils # 0.2 K/mcL (0.0-0.6); Monocytes # 1.3 K/mcL (0.0-1.3); Neutrophils # 7.4 K/mcL (1.6-8.9); Platelet Estimate Normal (Normal)
[2022-02-22] MEDS ORDERED: Tdap (Boostrix) Vaccine 0.5 ML SYRINGE IM ONE (20:51)
[2022-02-22] MEDS ORDERED: *HR* Phytonadione 5 MG TABLET PO ONE (21:44)
[2022-02-22] MEDS ORDERED: Naloxone 0.4 MG/ML INJ IVP PRN (21:52)
[2022-02-22] MEDS ORDERED: Melatonin 3 MG TABLET PO PRN (21:52)
[2022-02-22] MEDS ORDERED: Acetaminophen 325 MG TABLET PO PRN (21:52)
[2022-02-22] MEDS ORDERED: *HR* HYDROcodone/Acet 5/325 mg TABLET PO PRN (21:52)
[2022-02-22] MEDS ORDERED: Ondansetron 4 MG/2 ML VIAL IVP PRN (21:52)
[2022-02-22] MEDS ORDERED: Ipratropium/Albuterol Neb 3 ML IH PRN (22:24)
[2022-02-22 22:48] LABS: Influenza A PCR Negative (Negative); Influenza B PCR Negative (Negative); Resp. Syncytial Virus PCR Negative (Negative)
[2022-02-22 22:53] LABS: SARS-CoV-2 by PCR (In House) Negative (Negative)
[2022-02-22] MEDS: 0.9 % Sodium Chloride 1,000 ML IVC SCH (23:51)
[2022-02-23 00:37] LABS: Bilirubin,Urine Negative (Negative); Blood,Urine Large (Negative); Clarity,Urine Turbid (Clear); Color,Urine Yellow (Yellow); Glucose,Urine (UA) Normal (Normal); Hyaline Casts,Urine Few per lpf (None Seen); Ketones,Urine Negative (Negative); Leukocyte Esterase,Urine Large (Negative); Mucus,Urine Few per lpf (None-Few); Nitrite,Urine Negative (Negative); PH,Urine 5.5 pH Units (5.0-8.0); Protein,Urine 30 mg/dL (Neg-Trace); RBC,Urine 30-50 per hpf (0-3); Specific Gravity,Urine 1.017 (1.010-1.025); Squamous Epithelial Cell,Urine Few per hpf (None-Few); Urobilinogen,Urine Normal (Normal); WBC,Urine 50-100 per hpf (0-3)
[2022-02-23 00:39] LABS: Protein/Creatinine Ratio,Urine 0.39 mg/mg (0.00-0.20); Sodium, Urine 46.3 mEq/L
[2022-02-23] MEDS ORDERED: Azithromycin 500 MG in 0.9 % Sodium Chloride 250 ML IVPB ONE (01:59)
[2022-02-23 02:18] LABS: Calcium 10.3 mg/dL (8.6-10.3)
[2022-02-23 02:21] LABS: Basophils % 0.9 %; Lymphocytes % 8.8 %; Mean Corpuscular HGB Conc 31.4 g/dL (31.6-35.5)
[2022-02-23 02:23] LABS: Basophils # 0.1 K/mcL (0.0-0.2); Eosinophils % 0.1 %; Hematocrit 41.1 % (37.5-50.1); Hemoglobin 12.9 g/dL (12.9-16.9); Immature Granulocytes % 4.4 % (0-4); Immature Platelets 6.5 % (1.1-6.1); Lymphocytes # 0.7 K/mcL (0.6-4.6); Mean Corpuscular Hemoglobin 29.7 pg (28.0-33.3); Mean Corpuscular Volume 94.7 fL (83.0-100.0); Mean Platelet Volume 10.9 fL (9.4-12.4); Monocytes % 11.7 %; Nucleated Red Blood Cells 0.9 /100 WBC (0); Platelet Count 132 K/mcL (140-400); Red Blood Count 4.34 M/mcL (4.19-5.50); Segmented Neutrophils % 74.1 %; White Blood Count 8.1 K/mcL (4.3-11.1)
[2022-02-23 02:50] LABS: INR 13.1
[2022-02-23] MEDS: cefTRIAXone 1,000 MG in Water for inj. (sterile) 10 ML IVP SCH (08:39)
[2022-02-23 13:51] LABS: INR 12.7; Prothrombin Time 138.5 Seconds (9.4-12.1)
[2022-02-23] MEDS: 0.9 % Sodium Chloride 1,000 ML IVC SCH (14:57)
[2022-02-23] MEDS ORDERED: Gadolinium Contrast Agent (WT Based) IV PRN (16:07)
[2022-02-23] MEDS ORDERED: Oxymetazoline Nasal SPRAY BOTTLE 15ML NS PRN (17:35)
[2022-02-23 18:26] LABS: Hematocrit 38.9 % (37.5-50.1); Hemoglobin 12.5 g/dL (12.9-16.9)
[2022-02-23 18:37] LABS: % Iron Saturation 30 % (20-55); Iron 58 mcg/dL (65-175); Transferrin 138 mg/dL (203-362)
[2022-02-23 18:56] LABS: Ferritin > 1500 ng/mL (20-250)
[2022-02-24] MEDS: Azithromycin 500 MG in 0.9 % Sodium Chloride 250 ML IVPB SCH (02:23)
[2022-02-24] MEDS: Metoprolol XL (24 HR) Succ 50 MG TAB.ER.24H PO SCH (08:39)
[2022-02-24] MEDS: cefTRIAXone 1,000 MG in Water for inj. (sterile) 10 ML IVP SCH (08:39)
[2022-02-24] MEDS: 0.9 % Sodium Chloride 1,000 ML IVC SCH ×2 (09:45→15:28)
[2022-02-24 10:10] LABS: Albumin 2.9 g/dL (3.5-5.7); Bilirubin,Direct 0.4 mg/dL (0.0-0.2); Bilirubin,Indirect 0.5 mg/dL (0.0-1.0); Bilirubin,Total 0.9 mg/dL (0.3-1.0); Calcium 10.2 mg/dL (8.6-10.3); Globulin 2.8 g/dL (2.4-3.5); Potassium 4.4 mEq/L (3.5-5.1); Total Protein 5.7 g/dL (6.4-8.9)
[2022-02-24 10:25] LABS: INR 1.5; Prothrombin Time 17.1 Seconds (9.4-12.1)
[2022-02-24 11:28] LABS: Hematocrit 39.1 % (37.5-50.1); Hemoglobin 12.5 g/dL (12.9-16.9); Mean Corpuscular Hemoglobin 29.6 pg (28.0-33.3); Mean Corpuscular Volume 92.4 fL (83.0-100.0); Mean Platelet Volume 11.7 fL (9.4-12.4); Monocytes # 0.9 K/mcL (0.0-1.3); Nucleated Red Blood Cells 0.9 /100 WBC (0); Platelet Count 142 K/mcL (140-400); Red Blood Count 4.23 M/mcL (4.19-5.50); Red Cell Distribution Width 15.3 % (11.5-14.5); White Blood Count 7.8 K/mcL (4.3-11.1)
[2022-02-24 12:35] LABS: Lymphocytes # 0.3 K/mcL (0.6-4.6); Neutrophils # 6.2 K/mcL (1.6-8.9); Platelet Estimate Normal (Normal)
[2022-02-25] MEDS: Azithromycin 500 MG in 0.9 % Sodium Chloride 250 ML IVPB SCH (02:29)
[2022-02-25 06:01] LABS: Hematocrit 40.5 % (37.5-50.1); Hemoglobin 13.2 g/dL (12.9-16.9); Mean Corpuscular HGB Conc 32.6 g/dL (31.6-35.5); Mean Corpuscular Hemoglobin 30.3 pg (28.0-33.3); Mean Corpuscular Volume 92.9 fL (83.0-100.0); Mean Platelet Volume 10.8 fL (9.4-12.4); Nucleated Red Blood Cells 1.7 /100 WBC (0); Platelet Count 130 K/mcL (140-400); Red Blood Count 4.36 M/mcL (4.19-5.50); Red Cell Distribution Width 15.3 % (11.5-14.5); White Blood Count 7.8 K/mcL (4.3-11.1)
[2022-02-25 06:06] LABS: INR 1.7; Prothrombin Time 18.4 Seconds (9.4-12.1)
[2022-02-25 06:20] LABS: Bilirubin,Direct 0.4 mg/dL (0.0-0.2); Bilirubin,Indirect 0.4 mg/dL (0.0-1.0); Bilirubin,Total 0.8 mg/dL (0.3-1.0); Calcium 10.9 mg/dL (8.6-10.3); Globulin 2.9 g/dL (2.4-3.5); Total Protein 5.9 g/dL (6.4-8.9)
[2022-02-25 06:32] LABS: Large Platelets Present (Not Present); Lymphocytes # 1.1 K/mcL (0.6-4.6); Monocytes # 0.5 K/mcL (0.0-1.3); Neutrophils # 6.1 K/mcL (1.6-8.9); Platelet Estimate Normal (Normal)
[2022-02-25] MEDS: 0.9 % Sodium Chloride 1,000 ML IVC SCH (07:08)
[2022-02-25] MEDS: cefTRIAXone 1,000 MG in Water for inj. (sterile) 10 ML IVP SCH (08:47)
[2022-02-25] MEDS: Metoprolol XL (24 HR) Succ 50 MG TAB.ER.24H PO SCH (08:47)
[2022-02-25] MEDS: Aspirin Enteric Coated 81 MG Tablet PO SCH (09:58)
[2022-02-26] MEDS: Azithromycin 500 MG in 0.9 % Sodium Chloride 250 ML IVPB SCH (01:34)
[2022-02-26 06:38] LABS: Hemoglobin 13.2 g/dL (12.9-16.9); Mean Corpuscular HGB Conc 32.2 g/dL (31.6-35.5); Mean Corpuscular Hemoglobin 30.1 pg (28.0-33.3); Mean Corpuscular Volume 93.4 fL (83.0-100.0); Nucleated Red Blood Cells 1.1 /100 WBC (0); Platelet Count 129 K/mcL (140-400); Red Blood Count 4.39 M/mcL (4.19-5.50); Red Cell Distribution Width 15.4 % (11.5-14.5); White Blood Count 9.2 K/mcL (4.3-11.1)
[2022-02-26 06:50] LABS: INR 1.6; Prothrombin Time 17.3 Seconds (9.4-12.1)
[2022-02-26 07:12] LABS: Albumin/Globulin Ratio 1.1 (1.1-2.2); Bilirubin,Direct 0.2 mg/dL (0.0-0.2); Bilirubin,Indirect 0.5 mg/dL (0.0-1.0); Bilirubin,Total 0.7 mg/dL (0.3-1.0); Calcium 11.2 mg/dL (8.6-10.3); Globulin 2.8 g/dL (2.4-3.5); Potassium 5.5 mEq/L (3.5-5.1); Total Protein 5.8 g/dL (6.4-8.9)
[2022-02-26 07:52] LABS: Lymphocytes # 0.2 K/mcL (0.6-4.6); Monocytes # 0.4 K/mcL (0.0-1.3); Neutrophils # 7.7 K/mcL (1.6-8.9)
[2022-02-26 07:54] LABS: Platelet Estimate Normal (Normal)
[2022-02-26 09:46] LABS: AFP Tumor Marker Non-Pregnant 9 ng/mL (0-9)
[2022-02-26] MEDS: Aspirin Enteric Coated 81 MG Tablet PO SCH (10:24)
[2022-02-26] MEDS: Metoprolol XL (24 HR) Succ 50 MG TAB.ER.24H PO SCH (10:24)
[2022-02-26] MEDS: cefTRIAXone 1,000 MG in Water for inj. (sterile) 10 ML IVP SCH (10:25)
[2022-02-26] MEDS ORDERED: Iopamidol - 370 500 ML MLS IVP ONE (17:05)
[2022-02-26 18:46] VITALS: O2SAT 91
[2022-02-26] MEDS ORDERED: Melatonin 3 MG TABLET PO SCH (21:00)
[2022-02-26 21:28] VITALS: BP 149/76; PULSE 90
[2022-02-26 21:41] VITALS: TEMP 98.7
[2022-02-26] MEDS ORDERED: Melatonin 3 MG TABLET PO ONE (21:44)
[2022-02-28 07:02] LABS: ANA IgG by ELISA NONE DETECTED (None Detected)
== END 2022-02-26 23:59 | disposition other institution (70) | DRG 280 ==
LOC: 3BNU 17:11 → EMEROOARM 17:11 → SUATTDRO 21:37 → 3BNU 22:34
PROVIDERS: ADMIT Internal Medicine; ATTEND Registered Nurse